=== PATIENT | male | born 1940 | race Caucasian/White ===

== ENCOUNTER → 2018-08-28 16:06 | Outpatient (CLI) | payer MEDICARE, BC, SELFPAY ==
[2018-08-28 17:17] LABS: Basophils # 0.1 K/mm3 (0-0.2); Basophils % 0.9 % (0.1-2.0); Eosinophils # 0.3 K/mm3 (0.0-0.4); Eosinophils % 4.3 % (0.1-12.0); Hemoglobin 14.7 g/dL (14.1-18.0); Lymphocytes # 2.8 K/mm3 (0.7-4.5); Lymphocytes % 42.4 % (10-50); Mean Corpuscular HGB Conc 31.4 g/dL (31.8-35.4); Mean Corpuscular Hemoglobin 29.6 pg (27.0-31.2); Mean Corpuscular Volume 94.1 fl (80-94); Mean Platelet Volume 7.4 fl (7.4-10.4); Monocytes # 0.3 K/mm3 (0.1-1.0); Monocytes % 4.7 % (1.7-9.3); Neutrophils # 3.2 K/mm3 (1.8-7.8); Neutrophils % 47.6 % (37.0-80.0); Platelet Count 294 K/mm3 (142-424); Red Blood Count 4.99 M/mm3 (4.60-6.20); Red Cell Distribution Width 12.6 % (11.5-17.5); White Blood Count 6.7 K/mm3 (4.8-10.8)
[2018-08-28 18:27] LABS: Alanine Aminotransferase 52 U/L (12-78); Alkaline Phosphatase 94 U/L (46-116); Anion Gap 12.9 mEq/L (5-15); Aspartate Amino Transferase 36 U/L (15-37); Bilirubin,Total 0.5 mg/dL (0.2-1.0); Blood Urea Nitrogen 23 mg/dL (7-18); Calcium 9.4 mg/dL (8.5-10.1); Carbon Dioxide 31 mmol/L (21.0-32.0); Chloride 103 mmol/L (98-107); Chol/HDL Ratio 5.2 (1-3.5); Cholesterol 173 mg/dL (140-200); Creatinine,Serum 1.06 mg/dL (0.70-1.30); Estimated Glomerular Filt Rate 68 ml/min (>60); Free Thyroxine Index 2.3 ug/dL (5.93-13.13); GFR (African American) 82 ML/MIN (>60); Globulin 4.1 gm/dl (1.3-3.2); Glucose 107 mg/dL (74-106); HDL Cholesterol 33 mg/dL (27-67); LDL Cholesterol 113 mg/dL (0-130); Potassium 4.9 mmoL/L (3.5-5.1); Sodium 142 mmol/L (136-145); Thyroid Stimulating Hormone 3.89 uIU/ml (0.358-3.740); Total Protein,Serum 8.1 gm/dL (6.4-8.2); Triglycerides 133 mg/dL (30-200); Triiodothryronine (T3) Uptake 29 % (31-39); VLDL Cholesterol 27 mg/dL (0-40)
== END ==
PROVIDERS: Visit Provider Internal Medicine Adolescent Medicine
DX: I10 Essential (primary) hypertension (principal); R97.20 Elevated prostate specific antigen [PSA]; R09.89 Other specified symptoms and signs involving the circulatory and respiratory systems
CPT/HCPCS: 36415; 80053; 80061; 84153; 84436; 84443; 84479; 85025

== ENCOUNTER → 2018-09-02 08:16 | Outpatient (CLI) | payer MEDICARE, BC, SELFPAY ==
--- NOTE | 2018-09-02 08:21 | US_ITS ---
US aorta HISTORY: ITS.REASON: ABDOMINAL BRUIT COMPARISON: FINDINGS: Transverse longitudinal images are obtained of the abdominal aorta showing no evidence of aneurysm. Proximal common iliacs are unremarkable. IMPRESSION: No evidence of abdominal aortic aneurysm
== END ==
PROVIDERS: PCP Internal Medicine Adolescent Medicine; Visit Provider Internal Medicine Adolescent Medicine
DX: R09.89 Other specified symptoms and signs involving the circulatory and respiratory systems (principal)
CPT/HCPCS: 76770

== ENCOUNTER → 2019-05-28 12:19 | Outpatient (CLI) | payer MEDICARE, BC, SELFPAY ==
--- NOTE | 2019-05-28 12:25 | CA_ITS ---
APPROVED REPORT Right Lower Extremity Venous Study for DVT. 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 Vein Imaging CFV (R): compressive, spontaneous, phasic, augmentation FEM (R): compressive, spontaneous, phasic, augmentation POP (R): compressive, spontaneous, phasic, augmentation PTV (R): Compressible GSV (R): compressive, spontaneous, phasic, augmentation SSV (R): Compressible Peroneals (R):Compressible GAS (R): Compressible Findings No evidence of DVT or superficial thrombophlebitis in the veins scanned of the right lower extremity. Conclusion No evidence of DVT or superficial thrombophlebitis in the veins scanned of the right lower extremity. Electronically signed by : Jose Miguel Alarcon MD 05/30/2019 17:26:50
== END ==
PROVIDERS: PCP Internal Medicine Adolescent Medicine; Visit Provider Internal Medicine Adolescent Medicine
DX: M79.604 Pain in right leg (principal); R60.0 Localized edema
CPT/HCPCS: 93971

== ENCOUNTER → 2019-12-30 08:50 | Outpatient (CLI) | payer MEDICARE, BC, SELFPAY ==
[2019-12-30 16:44] VITALS: PULSE 78; PULSE 82
== END ==
PROVIDERS: PCP Internal Medicine Adolescent Medicine; Visit Provider Internal Medicine Adolescent Medicine
DX: R06.00 Dyspnea, unspecified (principal)
CPT/HCPCS: 94060; 94618; 94640; 94726; 94729

== ENCOUNTER 2020-05-08 10:18 | Emergency (ER) | payer MEDICARE, BC, SELFPAY ==
[2020-05-08 10:24] VITALS: BP 123/69; PULSE 78; RESP 15; TEMP 36.8; O2SAT 98; BMI 25.8
[2020-05-08 10:40] VITALS: BP 123/69; PULSE 78; RESP 15; TEMP 36.8; O2SAT 98; BMI 25.7
--- NOTE | 2020-05-08 10:57 | HMH.EDUTC ---
[facility] [place] Disposition Clinical Impression: Viral syndrome Disposition: Home, Self-Care Condition on Discharge: Good Instructions: Diarrhea (Alternative Therapy), Diarrhea, Preventing the Spread of Coronavirus Discharge Instructions Additional Instructions: ? Avoid fruit juices, as these do not replace minerals and can actually increase diarrhea. ? Children and adults can use sports drinks to replenish electrolytes. Younger children and infants should use products formulated for children, like oral rehydration solutions. ? Eat food in small amounts and let your stomach recover. ? Get lots of rest. You may feel tired or weak. ? No greasy or fried foods for the next 24-48 hours BRAT diet Bananas Rice Apples and [place] ? Make sure to drink plenty of liquids ? Return if needed ? Straight to ER if any life threatening symptoms ?? You was given an outpatient order for diarrhea panel, please collect specimen and bring back to outpatient lab then call back to the [facility] or follow up with family doctor for results ? Follow up with family doctor in the next 48-72 hours if no improvement or any worsening of symptoms You was tested for today for COVID19 your test result should be back later this evening, you may call back later this evening to see if your test results are back and the result You was given a handout with instructions for Self Quarantine and Self isolation for while you wait on test results and what to do if they are positive Referrals: Toro Causey MD [Primary Care Provider] - As needed Time of Disposition: 12:15 Medical Decision Making - Александр Inquiry Pt receiving controlled substance: No Александр was queried for this patient: No Vital Signs: 05/08/20 10:24 05/08/20 10:40 05/08/20 12:19 Temperature 98.3 F 98.3 F 98.3 F Temperature Source Oral Oral Oral Pulse Rate 78 Pulse Rate [Right] 78 78 Respiratory Rate 15 15 15 Blood Pressure 123/69 Blood Pressure [Right Arm] 123/69 123/69 Blood Pressure Mean [Right Arm] 87 87 Blood Pressure Source Automatic Cuff Blood Pressure Source [Right Arm] Automatic Cuff Blood Pressure Position Sitting Blood Pressure Position [Right Arm] Sitting 02 Sat by Pulse Oximetry 98 98 Oxygen Delivery Method Room Air Room Air - Lab Data Lab Results 05/08/20 11:10: WBC 8.0, RBC 4.82, Hgb 15.3, Hct 44.0, MCV 91.3, MCH 31.8 H, MCHC 34.8, RDW 12.8, Plt Count 290, MPV 8.0, Neut % (Auto) 47.5, Lymph % (Auto) 30.7, Ceiba % (Auto) 12.9 H, Eos % (Auto) 7.6, Baso % (Auto) 1.3, Neut # (Auto) 3.8, Lymph # (Auto) 2.5, Ceiba # (Auto) 1.0, Eos # (Auto) 0.6 H, Baso # (Auto) 0.1 Result diagrams: 05/08/20 11:10 Orders (Tests/Meds): ED MEDICATIONS Discontinued Medications Generic Name Dose Route Start Last Admin Trade Name Freq PRN Reason Stop Dose Admin Sodium Chloride 1,000 mls @ 999 mls/hr 05/08/20 11:30 05/08/20 11:21 Sod Chlor 0.9% 1000ml Bag IV 05/08/20 12:30 999 mls/hr .Q1H1M SAUNDRA Administration Medical Decision Narrative: Patient reports feeling much better after IV fluids, no diarrhea since arrival [facility] [place] HPI - General Stated complaint: doesn't feel good,diarrhea Time Seen by Provider: 05/08/20 10:57 Mode of Arrival: Ambulatory Source of Information: Patient Limitations: No Limitations Description of Symptoms (Recalled from Triage Doc. by RN): C/O diarrhea and fatigued for the past 2-3 days, denies fever but has been chilling. Denies pain. HEENT Symptoms (Recalled from RN notes): No Resp Symptoms (Recalled from RN notes): No Skin Symptoms (Recalled from RN notes): No MS Symptoms (Recalled from RN notes): No Functional Status (Recalled from RN notes): wnl - History of Present Illness Provider Complaint: Patient states that he has been having diarrhea on and off for last couple of days, having chills and body aches States that he is worried and wanted to be tested for COVID States that last eppisode of diarrhea was yesterday Denies known fever - Related
[2020-05-08 11:32] LABS: Basophils # 0.1 K/mm3 (0-0.2); Basophils % 1.3 % (0.1-2.0); Eosinophils # 0.6 K/mm3 (0.0-0.4); Eosinophils % 7.6 % (0.1-12.0); Hemoglobin 15.3 g/dL (14.1-18.0); Lymphocytes # 2.5 K/mm3 (0.7-4.5); Lymphocytes % 30.7 % (10-50); Mean Corpuscular HGB Conc 34.8 g/dL (31.8-35.4); Mean Corpuscular Hemoglobin 31.8 pg (27.0-31.2); Mean Corpuscular Volume 91.3 fl (80-94); Monocytes % 12.9 % (1.7-9.3); Neutrophils # 3.8 K/mm3 (1.8-7.8); Neutrophils % 47.5 % (37.0-80.0); Platelet Count 290 K/mm3 (142-424); Red Blood Count 4.82 M/mm3 (4.60-6.20); Red Cell Distribution Width 12.8 % (11.5-17.5)
[2020-05-08 12:19] VITALS: BP 123/69; PULSE 78; RESP 15; TEMP 36.8; O2SAT 98
== END 2020-05-08 12:20 | disposition home or self-care (01) ==
PROVIDERS: Emergency Provider Nurse Practitioner; PCP Internal Medicine Adolescent Medicine
DX: B34.9 Viral infection, unspecified (principal); Z20.828 Contact with and (suspected) exposure to other viral communicable diseases
CPT/HCPCS: G0463; 85025; 96365; 99202; U0003

== ENCOUNTER → 2020-09-20 09:34 | Outpatient (CLI) | payer MEDICARE, BC, SELFPAY ==
[2020-09-20 10:04] LABS: Basophils # 0.1 K/mm3 (0-0.2); Basophils % 0.8 % (0.1-2.0); Eosinophils # 0.6 K/mm3 (0.0-0.4); Eosinophils % 5.9 % (0.1-12.0); Hemoglobin 15.8 g/dL (14.1-18.0); Lymphocytes # 2.7 K/mm3 (0.7-4.5); Lymphocytes % 25.6 % (10-50); Mean Corpuscular HGB Conc 32.9 g/dL (31.8-35.4); Mean Corpuscular Hemoglobin 30.8 pg (27.0-31.2); Mean Corpuscular Volume 93.7 fl (80-94); Mean Platelet Volume 8.3 fl (7.4-10.4); Monocytes # 0.6 K/mm3 (0.1-1.0); Monocytes % 5.4 % (1.7-9.3); Neutrophils # 6.6 K/mm3 (1.8-7.8); Neutrophils % 62.3 % (37.0-80.0); Platelet Count 306 K/mm3 (142-424); Red Blood Count 5.13 M/mm3 (4.60-6.20); White Blood Count 10.6 K/mm3 (4.8-10.8)
[2020-09-20 10:51] LABS: Alanine Aminotransferase 37 U/L (12-78); Albumin Level 5.1 g/dl (3.5-5.0); Albumin/Globulin Ratio 1.3 (1.1-1.8); Alkaline Phosphatase 91 U/L (38-126); Anion Gap 11.1 mEq/L (5-15); Aspartate Amino Transferase 38 U/L (17-59); Bilirubin,Total 0.7 mg/dl (0.2-1.3); Blood Urea Nitrogen 22 mg/dl (9-20); Calcium 10.3 mg/dl (8.4-10.2); Carbon Dioxide 32 mmol/L (22.0-30.0); Chloride 104 mmol/L (98-107); Chol/HDL Ratio 4.1 (1-3.5); Cholesterol 221 mg/dl (140-200); Estimated Glomerular Filt Rate 81 ml/min (>60); GFR (African American) 98 ML/MIN (>60); Globulin 3.9 g/dL (1.3-3.2); Glucose 114 mg/dl (74-100); HDL Cholesterol 54 mg/dl (40-60); Potassium 5.1 mmoL/L (3.5-5.1); Sodium 142 mmol/L (136-145); Triglycerides 130 mg/dl (30-150); VLDL Cholesterol 26 mg/dL (0-40)
[2020-09-20 11:02] LABS: Direct LDL Cholesterol 128.51 mg/dL (100-129)
[2020-09-20 11:22] LABS: Prostate Specific Ag, Diagnost 7.83 ng/ml (0.0-4.0)
== END ==
PROVIDERS: Visit Provider Internal Medicine Adolescent Medicine
DX: E78.5 Hyperlipidemia, unspecified (principal); I10 Essential (primary) hypertension; R97.20 Elevated prostate specific antigen [PSA]
CPT/HCPCS: 36415; 80053; 80061; 84153; 85025

== ENCOUNTER → 2020-10-26 12:57 | Outpatient (CLI) | payer MEDICARE, BC, SELFPAY ==
--- NOTE | 2020-10-26 13:05 | XR_ITS ---
PROCEDURE: XR CHEST 2V CLINICAL HISTORY: COUGH COMPARISON: No exams were available for comparison FINDINGS: The cardiomediastinal silhouette and pulmonary vascularity are within normal limits. There are increased markings in both lung bases suspicious for bilateral pneumonia. There also increased markings in the right perihilar region which have a somewhat cavity like appearance measuring approximately 4 cm.. There is a suspicious 2.4 cm opacity in the left apex. Neoplasm is considered. Suggest chest CT with contrast for further evaluation. There appears to be an old right clavicular fracture. There are degenerative changes of the shoulders. There is also an old right 6th and 7th rib fracture. IMPRESSION: 1. Bilateral pneumonia . 2. Increased density right perihilar region having a somewhat cavity like appearance. This could merely be related to summation of overlying structures. Suggest chest CT for further evaluation. 3. Suspicious 2.4 cm left apical nodule suspicious for neoplasm. Suggest chest CT with contrast for further evaluation Dictated by: Jose Miguel Alarcon MD 10/26/2020 18:45 Jose Miguel Alarcon MD in [place] 10/26/2020 18:45
== END ==
PROVIDERS: PCP Internal Medicine Adolescent Medicine; Visit Provider Internal Medicine Adolescent Medicine
DX: R05 Cough (principal)
CPT/HCPCS: 71046

== ENCOUNTER → 2020-11-01 09:14 | Outpatient (CLI) | payer MEDICARE, BC, SELFPAY ==
[2020-11-01 10:18] LABS: Blood Urea Nitrogen 23 mg/dl (9-20); Estimated Glomerular Filt Rate 81 ml/min (>60); GFR (African American) 98 ML/MIN (>60)
== END ==
PROVIDERS: Visit Provider Internal Medicine Adolescent Medicine
DX: R93.89 Abnormal findings on diagnostic imaging of other specified body structures (principal)
CPT/HCPCS: 36415; 82565; 84520

== ENCOUNTER → 2020-11-03 12:52 | Outpatient (CLI) | payer MEDICARE, BC, SELFPAY ==
--- NOTE | 2020-11-03 12:59 | CT_ITS ---
PROCEDURE: CT CHEST W CON CLINCAL INDICATION: ABN FINDING ON IMAGING COMPARISON: No exams were available for comparison TECHNIQUE: IV Contrast: 75ml Isovue 370 Axial images obtained with sagittal and coronal reformats. All CT scans at the facility use one or more dose reduction, viz: automated exposure control, ma/kV adjustment per patient size (including targeted exams where dose is matched to indication, i.e. head), or iterative reconstruction technique. FINDINGS: HEART AND MEDIASTINAL STRUCTURES: The heart size is normal. No pericardial effusions. Minor atherosclerotic vascular calcification of the thoracic aorta and the coronary arteries are noted. No significant mediastinal or hilar adenopathy. Few scattered lymph nodes noted in the mediastinum, not significant by size criteria. LUNGS AND PLEURAL SPACES: There is left upper lobe subpleural soft tissue density noted measuring 2.1 times 1.4 centimeters. Bilateral lower lobe subsegmental consolidation is noted. There is a right upper lobe subpleural airspace opacity noted measuring up to 2 centimeters. This may represent subsegmental atelectasis. No other lobar consolidation. No pleural effusions. Minor bibasal atelectasis is noted. There is a 5 millimeter nodule noted in the left upper lobe. The central tracheobronchial tree is patent. BONY STRUCTURES: Multilevel degenerative changes of the visualized thoracic spine. Bilateral shoulder joint osteoarthritis noted. UPPER ABDOMEN: Focal hypodense lesion is noted in the left lobe of the liver measuring 1.5 centimeters, most likely represents a cyst. ADDITIONAL FINDINGS: No other significant abnormalities. IMPRESSION: Bilateral lower lobe subsegmental consolidation. Left upper lobe subpleural soft tissue density measuring 2.1 centimeters. This may represent subsegmental atelectasis. Neoplastic process cannot be completely excluded. Close follow-up with CT thorax in 2-3 months is recommended to evaluate for resolution. Dictated by: Kim Nunez 11/03/2020 16:43 Kim Nunez in [place] 11/03/2020 16:43
== END ==
PROVIDERS: PCP Internal Medicine Adolescent Medicine; Visit Provider Internal Medicine Adolescent Medicine
DX: R93.89 Abnormal findings on diagnostic imaging of other specified body structures (principal)
CPT/HCPCS: 71260

== ENCOUNTER → 2020-12-10 15:37 | Outpatient (CLI) | payer MEDICARE, BC, SELFPAY ==
[2020-12-10 15:59] LABS: Basophils # 0.1 K/mm3 (0-0.2); Basophils % 0.4 % (0.1-2.0); Eosinophils # 0.2 K/mm3 (0.0-0.4); Eosinophils % 1.2 % (0.1-12.0); Hematocrit 37.1 % (42.0-52.0); Lymphocytes # 2.6 K/mm3 (0.7-4.5); Lymphocytes % 16.7 % (10-50); MANUAL DIFFERENTIAL MANUAL DIFFERENTIAL (MANUAL DIFF); Mean Corpuscular HGB Conc 32.2 g/dL (31.8-35.4); Mean Corpuscular Hemoglobin 28.4 pg (27.0-31.2); Mean Corpuscular Volume 88.1 fl (80-94); Mean Platelet Volume 7.1 fl (7.4-10.4); Monocytes # 0.9 K/mm3 (0.1-1.0); Monocytes % 5.9 % (1.7-9.3); Neutrophils # 11.7 K/mm3 (1.8-7.8); Neutrophils % 75.8 % (37.0-80.0); Platelet Count 611 K/mm3 (142-424); Red Blood Count 4.21 M/mm3 (4.60-6.20); Red Cell Distribution Width 13.4 % (11.5-17.5); White Blood Count 15.4 K/mm3 (4.8-10.8)
[2020-12-10 16:22] LABS: Chloride 101 mmol/L (98-107); Potassium 4.9 mmoL/L (3.5-5.1); Sodium 136 mmol/L (136-145)
[2020-12-10 16:25] LABS: Alanine Aminotransferase 59 U/L (12-78); Albumin Level 3.9 g/dl (3.5-5.0); Albumin/Globulin Ratio 1.1 (1.1-1.8); Alkaline Phosphatase 115 U/L (38-126); Anion Gap 14.9 mEq/L (5-15); Aspartate Amino Transferase 45 U/L (17-59); Bilirubin,Total 0.8 mg/dl (0.2-1.3); Blood Urea Nitrogen 26 mg/dl (9-20); Calcium 9.4 mg/dl (8.4-10.2); Carbon Dioxide 25 mmol/L (22.0-30.0); Estimated Glomerular Filt Rate 65 ml/min (>60); GFR (African American) 78 ML/MIN (>60); Globulin 3.7 g/dL (1.3-3.2); Glucose 131 mg/dl (74-100); Total Protein,Serum 7.6 g/dl (6.3-8.2)
[2020-12-10 16:26] LABS: Magnesium 2.2 mg/dl (1.6-2.3)
[2020-12-10 16:36] LABS: Lymphocytes % 18 % (10-50); Monocytes % 5 % (2-9); Neutrophils % 73 % (42-76); Platelet Estimate Moderate Increase; RBC Morphology Normal; Total Cells Counted 100
[2020-12-13 20:28] LABS: Calcium, Ionized 5.5 mg/dL (4.5-5.6)
== END ==
PROVIDERS: Visit Provider Internal Medicine Adolescent Medicine
DX: I10 Essential (primary) hypertension (principal); R63.4 Abnormal weight loss
CPT/HCPCS: 36415; 80053; 82330; 83735; 85007; 85025

== ENCOUNTER → 2020-12-23 08:39 | Outpatient (CLI) | payer MEDICARE, BC, SELFPAY ==
--- NOTE | 2020-12-23 08:43 | CT_ITS ---
PROCEDURE: CT CHEST WO/W CON CLINCAL INDICATION: ABN FINDING ON IMAGING COMPARISON: CT CT CHEST W CON from 11/03/2020 TECHNIQUE: IV Contrast: 75ml Isovue 370 Axial images obtained with sagittal and coronal reformats. All CT scans at the facility use one or more dose reduction, viz: automated exposure control, ma/kV adjustment per patient size (including targeted exams where dose is matched to indication, i.e. head), or iterative reconstruction technique. FINDINGS: HEART AND MEDIASTINAL STRUCTURES: There are few mildly prominent lymph nodes in the subcarinal region and hilar area not significantly changed. There is mild supravalvular dilatation of the ascending aorta at 4 cm. LUNGS AND PLEURAL SPACES: There is consolidation now present in the right apex posteriorly and in the left upper lobe posteriorly. The consolidation in the right lower lobe has shown some improvement with some patchy irregular areas of increased density. The left lower lobe consolidation also has shown some improvement. There is now consolidation in the superior segment of the left lower lobe which was not present on the previous exam. The areas of consolidation contain multiple cystic appearing areas. The previously noted subpleural density in the left apex is no longer apparent is felt to represent an area of infiltrate. There are some new subpleural densities in the right upper lobe anteriorly and laterally as well as the right middle lobe. These are felt to be due to areas of pneumonia. BONY STRUCTURES: No acute bony abnormalities apparent. UPPER ABDOMEN: There is a stable 14 mm hypodensity in the left hepatic lobe. ADDITIONAL FINDINGS: No other significant abnormalities. IMPRESSION: There is a mixed pattern of lung consolidation with improvement in the lower lobes inferiorly and worsening in the upper lobes and the superior segment of the left upper lobe. This could be seen with cryptogenic organizing pneumonia or aspiration pneumonia. Previously reported opacity in the left apex is no longer apparent but there are numerous other small subpleural areas of consolidation which are felt to be due to areas of pneumonia. Dictated by: Jose Miguel Alarcon MD 12/23/2020 12:30 Jose Miguel Alarcon MD in [place] 12/23/2020 12:30
--- NOTE | 2020-12-23 08:44 | CT_ITS ---
PROCEDURE: CT ABDOMEN PELVIS W CON CLINICAL INDICATION: WEIGHT LOSS COMPARISON: No exams were available for comparison TECHNIQUE: IV Contrast: 75ML Isovue 370 Oral Contrast None Axial images obtained with sagittal and coronal reformats. All CT scans at the facility use one or more dose reduction, viz: automated exposure control, ma/kV adjustment per patient size (including targeted exams where dose is matched to indication, i.e. head), or iterative reconstruction technique. FINDINGS: LOWER THORAX: Please see chest report performed on the same day ABDOMEN & PELVIS: 1.5 cm hypodensity is present in the hepatic dome on the left segment 2 and may be due to a hepatic cyst. The liver has an otherwise unremarkable appearance. The spleen, and pancreas has an unremarkable appearance. The adrenal glands are somewhat prominent but maintain and adrenal form shape. No calcified gallstones apparent. No obvious renal mass or renal calculi. No hydronephrosis. The No evidence of appendicitis or diverticulitis. Prostate is enlarged at 5.7 cm with coarse calcifications. There is mild thickening the pyloric region of the stomach persistent on both the immediate and delayed images. There is also mild thickening the lower portion of the rectum near the anus. No acute bony findings are evident. There are mild degenerative changes of the lumbar spine and hips. IMPRESSION: 1. Probable small hepatic cyst. 2. Thickening of the pyloric region of the stomach. This is nonspecific and may be due to nondistention, inflammatory changes, or even neoplasm. Upper endoscopy may provide further evaluation. 3. There is also mild thickening of the lower portion of the rectum. This is nonspecific and may be due to nondistention. Digital exam and or sigmoidoscopy may also provide further evaluation. 4. Enlarged prostate with coarse calcifications Dictated by: Jose Miguel Alarcon MD 12/23/2020 12:37 Jose Miguel Alarcon MD in [place] 12/23/2020 12:37
[2020-12-23 09:13] LABS: Blood Urea Nitrogen 19 mg/dl (9-20); Estimated Glomerular Filt Rate 81 ml/min (>60); GFR (African American) 98 ML/MIN (>60)
== END ==
PROVIDERS: PCP Internal Medicine Adolescent Medicine; Visit Provider Internal Medicine Adolescent Medicine
DX: R63.4 Abnormal weight loss (principal); R93.89 Abnormal findings on diagnostic imaging of other specified body structures
CPT/HCPCS: 36415; 71270; 74177; 82565; 84520; Q9967

== ENCOUNTER → 2021-02-21 09:42 | Outpatient (CLI) | payer MEDICARE, BC, SELFPAY ==
[2021-02-21 10:35] VITALS: PULSE 70
== END ==
PROVIDERS: PCP Internal Medicine Adolescent Medicine; Visit Provider Internal Medicine Adolescent Medicine
DX: R06.02 Shortness of breath (principal)
CPT/HCPCS: 94060; 94640; 94726; 94729

== ENCOUNTER → 2021-03-02 10:13 | Outpatient (CLI) | payer MEDICARE, BC, SELFPAY | PROVIDERS: Visit Provider Internal Medicine Gastroenterology | DX: Z01.812 Encounter for preprocedural laboratory examination (principal); Z11.52 Encounter for screening for COVID-19; Z13.810 Encounter for screening for upper gastrointestinal disorder; Z12.11 Encounter for screening for malignant neoplasm of colon | CPT/HCPCS: U0003 ==

== ENCOUNTER 2021-03-04 10:25 | Day surgery (SDC) | payer MEDICARE, BC, SELFPAY ==
[2021-02-24 13:42] VITALS: BMI 24.2
[2021-03-04] VITALS (8 sets, daily range): BP systolic 92–132; BP diastolic 48–84; PULSE 69–83; RESP 16–18; TEMP 36.4; O2SAT 93–99
--- NOTE | 2021-03-04 11:50 | P.PN_ITS ---
[facility] Anesthesia Checklist - Patient Identification Patient Identification: Arm Band - Structural Data Admitted From: Home Planned Operative Procedure/s: Colonoscopy Consent for Planned Operative Procedure(s) Verified: Yes - NPO Status Verified Time NPO: 00:00 - Airway Assessment C-Spine Mobility Assessed: Yes TMJ Mobility Assessed: Yes Dentition: Good Dentition - Neurological Assessment Level of Consciousness: Awake Hx Seizures: No Numbness or tingling in extremities: No - Anesthesia Plan Anesthesia Risk discussed: Yes Anesthesia Plan: Verified ASA Class: II Anesthesia Type: MAC [facility] History I have reviewed the patient's past medical history: Yes Medical History: Denies:: Cancer, Diabetes Mellitus Type 1, Diabetes Mellitus Type 2, Internal Pacemaker, MRSA, Seizures *Have you ever received a pneumonia vaccine?: Yes *Have you received a flu vaccine this season?: Yes Anesthesia experience/problems:: None Other Surgeries: Yes: Appendectomy, Colonoscopy, EGD, Hernia Repair, Other (Gallbladder, Cellulitis of right leg.). No: Pacemaker Amputation: No Fractures: No - *Social History Last grade of school completed: 7th or 8th Smoking Status: Never smoker Alcohol Intake: never Alcohol Intake Frequency:: holidays/special occasions only Substance Use Type: denies use *Occupational Status:: retired Housing: house Household Members: significant other *Travel in the last 8 weeks: None Family Hx:: No significant family history
--- NOTE | 2021-03-04 12:43 | P.PCN_ITS ---
[facility] Procedure Note Procedure Note:: Upper Endoscopy Procedure Report: Esophagogastroduodenoscopy with cold biopsies Endoscopost: Jaden Canchola II, MD Referring Physician: Marco Wiley MD Date of Procedure: March 04, 2021 Equipment: Olympus GIF 190 standard upper endoscope Sedation: MAC sedation Indications: Mr. Andino is a 80-year-old gentleman who is here for diagnostic upper endoscopy and colonoscopy. The patient has had abnormal weight loss of 30 pounds over the last 3 months and abnormal imaging of the abdomen. He does have a history of COPD and is a non-smoker. The patient's lab work recently revealed hemoglobin 12.0 and hematocrit 37.1. The patient CT scan of the chest did show bilateral subsegmental consolidation and left upper lobe subpleural soft tissue density measuring 2.1 cm. Neoplastic process could not be excluded from CAT scan in October 2020. Repeat CT scan of the abdomen and pelvis on December 23, 2020 showed thickening of the pyloric region of the stomach which was nonspecific. There was also some mild thickening of the lower portion of the rectum. There was improvement of the pulmonary lesion and the left apex lesion was no longer present. The patient reports no heartburn, reflux, abdominal pain or dysphagia. Procedure: Prior to the procedure, a history and physical exam was performed, and patient's medications and allergies were reviewed. The risks, benefits and alternatives of the sedation and procedure were discussed with the patient. All questions were answered and informed consent was obtained. The patient was brought to the procedure room. Patient identification and proposed procedure were verified by the physician and the nurse. The patient was placed in a left lateral decubitus position and the scope was passed under direct vision. Throughout the procedure, the patient's blood pressure, pulse, and oxygen saturations were monitored continuously. The upper GI endoscopy was accomplished without difficulty. The patient tolerated the procedure well. Findings: The scope was passed directly into the upper esophagus and advanced to the third portion of the duodenum. The post bulbar duodenum and duodenal bulb were normal with normal mucosa and conniventes. The scope was withdrawn through a normal duodenal bulb and pylorus into the stomach. There was bile reflux with mild linear reactive gastropathy. There was moderate chronic atrophic gastritis of the body and fundus of the stomach with loss of rugal folds and increased mucosal vascularity. Cold biopsies were taken from the fundus to rule out intestinal metaplasia/atrophic gastritis. Upon retroflexion there was no hiatal hernia. The scope was then withdrawn into the esophagus. There was a serrated Z-line. There was no evidence of reflux esophagitis or Soler's. There were strong tertiary contractions and almost corkscrew esophagus consistent with marked esophageal dysmotility. The remainder of the esophageal mucosa was normal. Impression: 1. 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 The patient is clinically asymptomatic. I will proceed with colonoscopy secondary to the abnormal CAT scan.
--- NOTE | 2021-03-04 13:03 | HMH.PROC ---
[facility] Procedure Note Procedure Note:: Colonoscopy Procedure Report: Colonoscopy with cold snare polypectomy Endoscopist: Jaden Canchola II, MD Referring physician: Marco Wiley MD Date of Procedure: March 04, 2021 Equipment: Olympus 190 variable stiffness pediatric colonoscope Sedation: MAC sedation Indication: Mr. Andino is a 80-year-old gentleman who is here for diagnostic colonoscopy. He has had abnormal weight loss of 30 pounds in 3 months. He also had a CT scan of the abdomen and pelvis that showed thickening in the pyloric region but also some mild thickening of the lower portion of the rectum near the anus. The patient does have COPD with bronchopneumonia recently. He is not a smoker. He reports no abdominal pain, change in his bowel habits, rectal bleeding or family history of colon cancer. He does state that his last colonoscopy was more than 15 years ago. Procedure: Prior to the procedure, a history and physical exam was performed, and patient's medications and allergies were reviewed. The risks, benefits and alternatives of the sedation and procedure were discussed with the patient. All questions were answered and informed consent was obtained. The patient was brought to the procedure room. Patient identification and proposed procedure were verified by the physician and the nurse. The patient was placed in a left lateral decubitus position and the scope was passed under direct vision. Throughout the procedure, the patient's blood pressure, pulse, and oxygen saturations were monitored continuously. The colonoscopy was accomplished without difficulty. The patient tolerated the procedure well. Findings: On digital rectal examination there was normal rectal tone. There were no external hemorrhoids. The prostate was 2+, moderately firm with some asymmetry and greater firmness along the right lateral margin of the prostate. The colonoscope was introduced through the anal canal to the rectum and advanced to the cecum. The ileocecal valve and appendiceal orifice were identified. The scope was advanced a short distance into the ileum which appeared grossly normal. The scope was then withdrawn into the colon. There were 2 colon polyps (ascending x1 (6 mm) and transverse x1 (4 mm)) which were both removed via cold snare polypectomy. The remaining cecum, ascending and transverse colon and mucosa were grossly normal. There were mildly scattered diverticuli throughout the descending and sigmoid colon (LEFT colon). There was some very mild melanosis coli in the right colon. The rectum itself was normal. Upon retroflexion within the rectum there were grade 2 internal hemorrhoids. The preparation was excellent throughout with Mobile Preparation Score of 9. The cecal time was 12 minutes. Impression: 1. Colonic polyps x2 2. Mild left-sided diverticulosis 3. Grade 1-2 internal hemorrhoids Plan: I will follow up the polyp histology. The patient will not require any further preventive/screening colonoscopy. I will discuss the findings with the patient and family. I do believe the abnormal weight loss is related to the pulmonary findings.
== END 2021-03-04 13:55 | disposition home or self-care (01) ==
LOC: OUTP 10:27
PROVIDERS: PCP Internal Medicine Adolescent Medicine; Visit Provider Internal Medicine Gastroenterology
PROC: 0DJ08ZZ Inspection of Upper Intestinal Tract, Via Natural or Artificial Opening Endoscopic (ICD-10-PCS; CPT 43235; principal; 2021-03-04 11:30)
DX: K29.40 Chronic atrophic gastritis without bleeding (principal); K22.4 Dyskinesia of esophagus; K63.5 Polyp of colon; K57.30 Diverticulosis of large intestine without perforation or abscess without bleeding; K64.0 First degree hemorrhoids
CPT/HCPCS: 43239; 45385; 88305

== ENCOUNTER → 2021-08-04 08:31 | Outpatient (CLI) | payer MEDICARE, BC, SELFPAY ==
[2021-08-06 16:09] LABS: H. pylori Breath Test Negative (Negative)
== END ==
PROVIDERS: PCP Internal Medicine Adolescent Medicine; Visit Provider Internal Medicine Gastroenterology
DX: A04.8 Other specified bacterial intestinal infections (principal)
CPT/HCPCS: 83013

== ENCOUNTER 2023-08-08 09:30 | Outpatient (CLI) | payer MEDICARE, BC, SELFPAY ==
--- NOTE | 2023-08-08 09:40 | ECG_ITS ---
APPROVED REPORT Exam: Resting ECG HR:56 bpm ECG Measurements Heart Rate 56 AXES CO 155 P 72 QRSd 91 QRS 82 QT 443 T 91 QTc 434 Conclusion SINUS BRADYCARDIA BORDERLINE ECG UNCONFIRMED REPORT Electronically signed by : Toro Causey MD 08/09/2023 20:34:34
[2023-08-08 10:20] LABS: Basophils # 0.1 K/mm3 (0-0.2); Basophils % 1.2 % (0.1-2.0); Eosinophils # 0.7 K/mm3 (0.0-0.4); Eosinophils % 6.6 % (0.1-12.0); Hematocrit 47.9 % (42.0-52.0); Hemoglobin 16.1 g/dL (14.1-18.0); Lymphocytes # 2.7 K/mm3 (0.7-4.5); Lymphocytes % 27.1 % (10-50); Mean Corpuscular HGB Conc 33.6 g/dL (31.8-35.4); Mean Corpuscular Hemoglobin 31.8 pg (27.0-31.2); Mean Corpuscular Volume 94.5 fl (80-94); Mean Platelet Volume 8.3 fl (7.4-10.4); Monocytes # 0.6 K/mm3 (0.1-1.0); Monocytes % 5.8 % (1.7-9.3); Neutrophils # 5.9 K/mm3 (1.8-7.8); Neutrophils % 59.4 % (37.0-80.0); Platelet Count 256 K/mm3 (142-424); Red Blood Count 5.07 M/mm3 (4.60-6.20)
[2023-08-08 16:23] LABS: Anion Gap 13.4 mEq/L (5-15); Blood Urea Nitrogen 19 mg/dl (9-20); Carbon Dioxide 23 mmol/L (22.0-30.0); Chloride 106 mmol/L (98-107); Estimated Glomerular Filt Rate 81 ml/min (>60); GFR (African American) 98 ML/MIN (>60); Glucose 91 mg/dl (74-100); Potassium 4.4 mmoL/L (3.5-5.1); Sodium 138 mmol/L (136-145)
== END 2023-08-08 23:59 ==
LOC: LAB 09:31
PROVIDERS: PCP Internal Medicine Adolescent Medicine; Visit Provider Surgery
DX: L72.3 Sebaceous cyst (principal); B34.9 Viral infection, unspecified
CPT/HCPCS: 36415; 80048; 85025; 93005

== ENCOUNTER 2023-08-16 08:20 | Day surgery (SDC) | payer MEDICARE, BC, SELFPAY ==
[2023-08-15 11:20] VITALS: BMI 25.0
[2023-08-16] VITALS (9 sets, daily range): BP systolic 138–172; BP diastolic 68–85; PULSE 71–79; RESP 16–20; TEMP 36.1–36.4; O2SAT 95–100
--- NOTE | 2023-08-16 08:43 | ECG_ITS ---
APPROVED REPORT Exam: Resting ECG HR:66 bpm ECG Measurements Heart Rate 66 AXES IA 151 P 54 QRSd 84 QRS 67 QT 413 T 81 QTc 426 Conclusion SINUS RHYTHM NORMAL ECG UNCONFIRMED REPORT Electronically signed by : Toro Causey MD 08/16/2023 20:07:32
[2023-08-16] MEDS: LACTATED RINGERS 1000ML 1,000 ML 25 ML IV (08:51)
--- NOTE | 2023-08-16 09:20 | EXP.ANES.CKL ---
[facility] Disclaimer: The information contained in this section may have been updated after the patient was seen, as this information can be updated by other users. Medical History Osteoarthritis Surgical History History of hernia repair Family History Other Family history of cancer Social History Smoking Status: Never smoker second hand exposure: No alcohol intake: never counseling provided: provider counseling substance use type: denies use current occupational status: retired Travel in the last 8 weeks: None household members: significant other housing: house current occupational exposures/hazards: No caffeine: Yes [facility] Anesthesia Checklist Patient Identification Patient Identification: Arm Band, Family and Verbal (Name & ) Structural Data Admitted From: Home Planned Operative Procedure/s: Excision of Neck Cyst & LEFT arm nodule Consent for Planned Operative Procedure(s) Verified: Yes Verified Documents: Surgical Consent and History and Physical NPO Status Verified Time NPO: 19:00 Chart Verification Results Verified: CBC, BMP and ECG Additional verifications Patient : No Anesthesia Reactions: No Hx Blood Transfusions: No Cardiovascular Assessment Heart Sounds: S1 & S2 Pulse Rhythm: Irregular Peripheral Edema: No Airway Assessment Mallampati Score:: Class II C-Spine Mobility Assessed: Yes (FROM) TMJ Mobility Assessed: Yes Dentition: Edentulous Neurological Assessment Level of Consciousness: Awake, Alert, Appropriate and Follows Commands Hx Seizures: No Numbness or tingling in extremities: No Anesthesia Plan Anesthesia Risk discussed: Yes Anesthesia Plan: Verified ASA Class: II Anesthesia Type: General Preoperative Comments Pre-Operative Comments: Consented for both deep sedation and GA w/LMA
[2023-08-16] MEDS: CEFAZOLIN SODIUM 1 GM in 0.9 % SODIUM CHLORIDE 50 ML IV (09:43)
[2023-08-16] MEDS: LIDOCAINE 1% 20ML MDV 20 ML (10:02)
--- NOTE | 2023-08-16 10:12 | EXP.OP.NOTE ---
Date of procedure: 08/16/23 Pre-op Diagnosis:: 2 cm right posterior neck sebaceous cyst 5 mm left forearm skin nodule Post-op Diagnosis:: Same Procedure performed:: Excision of 2 cm right posterior neck sebaceous cyst Excision of 5 mm left forearm skin nodule Surgeon:: Cuco Giles MD PRODUCT DEVELOPMENT ECOLOGIST:: Gonzalez Ko Anesthesia: LMA Estimated blood loss (mL): 15 Operative findings:: Both lesions excised in toto Operative note:: After informed consent was obtained the patient was taken to the operating room and placed in the supine position. General anesthesia with laryngeal mask airway was achieved. He was transferred to a left lateral decubitus position. His left forearm and posterior neck were prepped and draped in a sterile fashion. After infiltration local anesthetic an elliptical incision was made around the 5 mm left forearm lesion. The lesion was excised in toto and passed off for pathologic evaluation. Electrocautery was utilized to achieve hemostasis. Skin was reapproximated with interrupted 4-0 nylon in a mattress fashion to facilitate hemostasis. In the same manner an elliptical incision was made sharply around the 2 cm posterior neck cyst. The deeper subcutaneous tissue was dissected with electrocautery. The lesion was excised in toto and passed off for pathologic evaluation. Electrocautery was utilized to achieve hemostasis and skin was reapproximated with interrupted 4-0 nylon in a mattress fashion. Dressings were applied and the patient was transferred to recovery in stable condition after removal of his laryngeal mask airway. Condition: stable Disposition: PACU Specimens:: 2 cm right posterior neck cyst 5 mm left forearm skin nodule Complications:: No immediate
--- NOTE | 2023-08-16 10:19 | P.PNANES_ITS ---
[facility] Anesthesia Record Part I Anesthesia Record I Intake, IV Amount: 100 Hydration: Adequate Estimated blood loss (mL): 5 Urine output (mL): 0 Blood Pressure: 162/74 SaO2: 95 Pulse Rate: 79 Airway Patency: Patent Respiratory Rate: 20 Temperature: 97 F Patient is:: Drowsy and Oral/Nasal airway Stable to PACU at:: 10:19
--- NOTE | 2023-08-18 11:51 | EXP.ANES.II ---
[facility] Anesthesia Record Part II Anesthesia Record Part II Discharge Time: 10:49 Destination: Surgical Day Care (OP Surgery) PACU nurse assessment reviewed?: Yes Patient Condition:: Good Anesthesia Complications:: None Swallowing reflex intact?: Yes Airway Patency: Patent Cyanosis?: No Blood Pressure: 167/78 SaO2: 97 Respiratory Rate: 17 Pulse Rate: 75 Temperature: 97.5 F Mental Status: Alert & Oriented Pain level:: 0 Nausea and/or vomitting:: None Intake, IV Amount: 0 Hydration: Adequate
[2023-08-18 11:52] VITALS: BP 167/78; PULSE 75; RESP 17; TEMP 36.4; O2SAT 97
== END 2023-08-16 11:20 | disposition home or self-care (01) ==
PROVIDERS: PCP Internal Medicine Adolescent Medicine; Visit Provider Surgery
PROC: (CPT 11400; principal; 2023-08-16 10:00)
DX: M79.81 Nontraumatic hematoma of soft tissue (principal); L72.0 Epidermal cyst
CPT/HCPCS: 11400; 11422; 88304; 88305; 93005; 96374; J2405

== ENCOUNTER 2023-08-23 20:31 | Emergency (ER) | payer MEDICARE, BC, SELFPAY ==
[2023-08-23 20:32] VITALS: BP 187/106; PULSE 74; RESP 20; TEMP 36.3; O2SAT 99; BMI 25.8
--- NOTE | 2023-08-23 20:48 | ED_ITS ---
Discharge Plan Disposition Patient Disposition: Home, Self-Care Prescriptions Prescriptions: No Action lisinopril 40 mg tablet 40 mg PO DAILY Referrals Follow up/Referrals: Donald Miguel MD [Staff Physician] - See instructions Toro Causey MD [Primary Care Provider] - See instructions Activity Restrictions/Add. Instructions Additional Instructions/Restrictions: At this time is felt you are safe to be discharged home. If new or worsening symptoms please not hesitate to return the emergency department. Please call tomorrow to schedule an appointment with Dr. Miguel as soon as you are able. If you are unable to see Dr. Miguel within the next 7 to 10 days please call and schedule an appointment with Dr. Causey's office and say that you were in the emergency department and they suggested you follow-up as soon as you are able for your elevated blood sugar and inability to pee. Clinical Impressions Clinical Impression: Acute urinary retention, Hyperglycemia Discharge ED Provider: Sam Waters General Adult HPI General Chief complaint: Abdominal Pain Stated complaint: pain with kidneys Time Seen by Provider: 08/23/23 20:34 History of Present Illness HPI narrative: Patient is a 83-year-old male with past medical history of hypertension who presents to the emergency department for inability to void. Onset was acute, over the last 24 hours, last night or this morning patient has not been able to void since and has developed abdominal distention in his lower abdomen and pain with attempting to void for which he has been unable. He has no other acute complaints at this time. Denies midline back pain, saddle anesthesia, lower extremity weakness. Related Data Home Medications Medication Instructions Recorded Confirmed lisinopril 40 mg tablet 40 mg PO DAILY 08/08/23 08/16/23 Allergies Allergy/AdvReac Type Severity Reaction Status Date / Time No Known Allergies Allergy Verified 08/16/23 08:37 [facility] Disclaimer: The information contained in this section may have been updated after the patient was seen, as this information can be updated by other users. Medical History (Updated 08/23/23 @ 21:35 by Sam Waters MD) Osteoarthritis Surgical History History of hernia repair Family History Other Family history of cancer Social History Smoking Status: Never smoker second hand exposure: No alcohol intake: never counseling provided: provider counseling substance use type: denies use current occupational status: retired Travel in the last 8 weeks: None household members: significant other housing: house current occupational exposures/hazards: No caffeine: Yes ROS Obtained: Yes Systems reviewed as appropriate & no additional complaints except as documented Physical Exam General General appearance: alert and in no apparent distress Head Head exam: atraumatic and normocephalic Eye Eye exam: Present PERRL and EOMI ENT ENT exam: Present mucous membranes moist Neck Neck exam: Present normal inspection Chest Chest inspection: Present normal inspection and symmetric chest wall rise Respiratory Respiratory exam: Absent respiratory distress Cardiovascular Cardiovascular exam: Present regular rate and normal rhythm Abdominal Exam Abdominal exam: Present distention (Suprapubic); Absent tenderness Extremities Exam Extremities exam: Present normal inspection and other (5 out of 5 strength bilateral lower extremity) Neurological Exam Neurological exam: Present alert Psychiatric Psychiatric exam: Present normal affect Skin Skin exam: Present warm and dry Medical Decision Making Александр Inquiry Pt receiving controlled substance: No Vital Signs: 08/23/23 20:32 Temperature 97.4 F L Temperature Source Oral Pulse Rate [Right Radial] 74 Respiratory Rate 20 Blood Pressure [Right Arm] 187/106 H Blood Pressure Mean [Right Arm] 133 02 Sat by Pulse Oximetry 99 Oxygen Delivery Method Room Air Lab Data Lab Results 08/23/23 20:40: WBC 15.8 H, RBC 5.11, Hgb 15.8, Hct 47.6, MCV 93.1, MCH 31.0, MCHC 33.3, RDW 13.1, Plt Count 336, MPV 8.4, Neut % (Auto) 79.6, Lymph % (Auto) 14.5, Charles % (Auto) 4.0, Eos % (Auto) 1.3, Baso % (Auto) 0.6, Neut # (Auto) 12.6 H, Lymph # (Auto) 2.3, Charles # (Auto) 0.6, Eos # (Auto) 0.2, Baso # (Auto) 0.1, Total Counted 100, Neutrophils % (Manual) 78 H, Lymphocytes % (Manual) 16, Monocytes % (Manual) 4, Eosinophils % (Manual) 2, Platelet Estimate Normal, RBC Morphology Normal, Sodium 141, Potassium 4.2, Chloride 101, Carbon Dioxide 28, Anion Gap 16.2 H, BUN 19, Creatinine 0.90, Estimated Creat Clear 62, Estimated GFR 81, Est GFR ( Amer) 98, Glucose 201 H, Calcium 9.8, Total Bilirubin 0.9, AST 34, ALT 29, Alkaline Phosphatase 127 H, Total Protein 8.9 H, Albumin 5.0, Globulin 3.9 H, Albumin/Globulin Ratio 1.3 08/23/23 20:45: Urine Color Yellow, Urine Appearance Clear, Urine pH 6.0, Ur Specific Morral 1.015, Urine Protein Negative, Urine Glucose (UA) Negative, Urine Ketones Negative, Urine Blood 1+, Urine Nitrate Negative, Urine Bilirubin Negative, Urine Urobilinogen 0.2, Ur Leukocyte Esterase Negative, Urine RBC 5- 10, Urine WBC Occasional, Urine Bacteria 1+ 08/23/23 20:40 08/23/23 20:40 Orders (Tests/Meds): ORDERS Category Date Time Status CBC w/Auto Diff [Complete Blood Count Auto Diff] Stat Lab 08/23/23 20:40 Completed CMP [Comprehensive Metabolic Panel] Stat Lab 08/23/23 20:40 Completed UA [Urinalysis and Microscopic] Stat Lab 08/23/23 20:45 Completed Medical Decision Narrative: In summary patient is a 83-year-old male with past medical history described above who presents emergency department for evaluation of urinary retention. Patient is hemodynamically stable nontoxic-appearing upon arrival, afebrile. Bladder scan ultrasound shows greater than 800 cc (images were not saved to apartment archive therefore no note is warranted). Patient was decompressed with a Pate with immediate resolution of symptoms. Patient has a benign abdominal exam. Screening for kidney injury will be conducted with hematologic labs. Urinalysis will be obtained. Workup reviewed by me, hematologic labs are nonactionable, mild hyperglycemia that is not concerning for DKA. Patient has nonspecific leukocytosis, does not have any history consistent with infection that would require further investigation at this time, urinalysis interpreted by me and not consistent with infection. Upon repeat evaluation patient continued to be well-appearing, no other acute complaints. Given this patient is appropriate for discharge at this time we will follow-up with urology on an outpatient basis. Critical Care Critical Care Time Critical Care Time: No
[2023-08-23 20:52] LABS: Microscopic, Urine URINE MICROSCOPIC (MICROSCOPIC)
[2023-08-23 20:54] LABS: Appearance,Urine CLEAR (Clear); Bilirubin,Urine Negative (Negative); Blood, Urine 1+ (Negative); Color,Urine YELLOW (Yellow); Glucose,Urine (UA) Negative (Negative); Ketones,Urine Negative (Negative); Leukocyte Esterase,Urine Negative (Negative); Nitrate,Urine Negative (Negative); Protein,Urine Negative (Negative); Specific Gravity, Urine 1.015 (1.005-1.030); Urobilinogen,Urine 0.2 EU/dl (0.2)
[2023-08-23 20:54] LABS: Basophils # 0.1 K/mm3 (0-0.2); Basophils % 0.6 % (0.1-2.0); Eosinophils # 0.2 K/mm3 (0.0-0.4); Eosinophils % 1.3 % (0.1-12.0); Hematocrit 47.6 % (42.0-52.0); Hemoglobin 15.8 g/dL (14.1-18.0); Lymphocytes # 2.3 K/mm3 (0.7-4.5); Lymphocytes % 14.5 % (10-50); Mean Corpuscular HGB Conc 33.3 g/dL (31.8-35.4); Mean Corpuscular Volume 93.1 fl (80-94); Mean Platelet Volume 8.4 fl (7.4-10.4); Monocytes # 0.6 K/mm3 (0.1-1.0); Neutrophils # 12.6 K/mm3 (1.8-7.8); Neutrophils % 79.6 % (37.0-80.0); Platelet Count 336 K/mm3 (142-424); Red Blood Count 5.11 M/mm3 (4.60-6.20); Red Cell Distribution Width 13.1 % (11.5-17.5); White Blood Count 15.8 K/mm3 (4.8-10.8)
[2023-08-23 20:58] LABS: MANUAL DIFFERENTIAL MANUAL DIFFERENTIAL (MANUAL DIFF)
[2023-08-23 20:59] LABS: Alanine Aminotransferase 29 U/L (12-78); Albumin/Globulin Ratio 1.3 (1.1-1.8); Alkaline Phosphatase 127 U/L (38-126); Anion Gap 16.2 mEq/L (5-15); Aspartate Amino Transferase 34 U/L (17-59); Bilirubin,Total 0.9 mg/dl (0.2-1.3); Blood Urea Nitrogen 19 mg/dl (9-20); Calcium 9.8 mg/dl (8.4-10.2); Carbon Dioxide 28 mmol/L (22.0-30.0); Chloride 101 mmol/L (98-107); Creatinine Clearance Estimated 62 mL/min (50-200); Estimated Glomerular Filt Rate 81 ml/min (>60); GFR (African American) 98 ML/MIN (>60); Globulin 3.9 g/dL (1.3-3.2); Glucose 201 mg/dl (74-100); Potassium 4.2 mmoL/L (3.5-5.1); Sodium 141 mmol/L (136-145); Total Protein,Serum 8.9 g/dl (6.3-8.2)
[2023-08-23 21:14] LABS: Eosinophils % 2 % (0-3); Lymphocytes % 16 % (10-50); Monocytes % 4 % (2-9); Neutrophils % 78 % (42-76); Total Cells Counted 100
[2023-08-23 21:15] LABS: Platelet Estimate Normal; RBC Morphology Normal
[2023-08-23 21:16] LABS: Bacteria,Urine 1+ /lpf; WBC,Urine Occasional #/hpf (0-3)
[2023-08-23 21:54] VITALS: BP 150/74; PULSE 78; RESP 20; TEMP 36.7; O2SAT 98
== END 2023-08-23 21:55 | disposition home or self-care (01) ==
PROVIDERS: Emergency Provider Emergency Medicine; PCP Internal Medicine Adolescent Medicine
DX: R33.9 Retention of urine, unspecified (principal); R73.9 Hyperglycemia, unspecified; I10 Essential (primary) hypertension
CPT/HCPCS: 51702; 80053; 81001; 85007; 85025; 99284

== ENCOUNTER 2023-09-03 16:10 | Outpatient (CLI) | payer MEDICARE, BC, SELFPAY ==
[2023-09-03 16:33] LABS: Microscopic, Urine URINE MICROSCOPIC (MICROSCOPIC)
[2023-09-03 16:50] LABS: Appearance,Urine CLEAR (Clear); Bilirubin,Urine Negative (Negative); Blood, Urine 3+ (Negative); Color,Urine YELLOW (Yellow); Glucose,Urine (UA) Negative (Negative); Ketones,Urine Negative (Negative); Leukocyte Esterase,Urine Negative (Negative); Nitrate,Urine Negative (Negative); PH,Urine 5.5 (5.0-8.5); Protein,Urine Negative (Negative); Specific Gravity, Urine >= 1.030 (1.005-1.030); Urobilinogen,Urine 0.2 EU/dl (0.2)
[2023-09-03 18:06] LABS: WBC,Urine Occasional #/hpf (0-3)
== END 2023-09-03 23:59 ==
LOC: LAB 16:12
PROVIDERS: PCP Internal Medicine Adolescent Medicine; Visit Provider Urology
DX: R33.8 Other retention of urine (principal)
CPT/HCPCS: 81001; 87086

== ENCOUNTER 2023-10-12 13:21 | Outpatient (CLI) | payer MEDICARE, BC, SELFPAY ==
[2023-10-12 13:27] LABS: Microscopic, Urine URINE MICROSCOPIC (MICROSCOPIC)
[2023-10-12 15:18] LABS: Appearance,Urine CLEAR (Clear); Bilirubin,Urine Negative (Negative); Blood Urea Nitrogen 18 mg/dl (9-20); Blood, Urine 1+ (Negative); Color,Urine YELLOW (Yellow); Estimated Glomerular Filt Rate 81 ml/min (>60); GFR (African American) 98 ML/MIN (>60); Glucose,Urine (UA) Negative (Negative); Ketones,Urine Negative (Negative); Leukocyte Esterase,Urine TRACE (Negative); Nitrate,Urine Negative (Negative); Protein,Urine Negative (Negative); Specific Gravity, Urine >= 1.030 (1.005-1.030); Urobilinogen,Urine 0.2 EU/dl (0.2)
[2023-10-12 15:28] LABS: RBC,Urine Occasional #/hpf (0-3); Squamous Epithelial Cell,Urine Occasional #/hpf (0-5); WBC,Urine Occasional #/hpf (0-3)
== END 2023-10-12 23:59 ==
PROVIDERS: PCP Internal Medicine Adolescent Medicine; Visit Provider Urology
DX: R31.9 Hematuria, unspecified (principal)
CPT/HCPCS: 36415; 81001; 82565; 84520

== ENCOUNTER 2023-10-24 07:38 | Outpatient (CLI) | payer MEDICARE, BC, SELFPAY ==
--- NOTE | 2023-10-24 07:39 | CT_ITS ---
FINAL REPORT TECHNIQUE: Axial CT images of the abdomen and pelvis were obtained before and after the administration of IV contrast. Oral contrast was administered.This study was performed with techniques to keep radiation doses as low as reasonably achievable (ALARA). Individualized dose reduction techniques using automated exposure control or adjustment of mA and/or kV according to the patient''s size were employed. CLINICAL HISTORY: UTI COMPARISON: 12/23/2020 FINDINGS: Abdomen: There is mild scarring in the lung bases. The heart is normal in size. There is a 15 mm cyst in the lateral segment of the left hepatic lobe. The spleen is unremarkable. There is mild adrenal gland enlargement, may represent hyperplasia or adenomas. Findings are stable since prior. The pancreas has an unremarkable appearance. The kidneys enhance normally. The aorta is normal in caliber. There is no free fluid or adenopathy. No mass or abnormal fluid collection is seen. Precontrast images demonstrate no evidence of nephrolithiasis. Pelvis: The appendix is normal. The prostate is diffusely enlarged. There is mild bladder wall thickening, likely inflammatory. Left inguinal hernia containing fat is identified. There is no evidence of mass or adenopathy. There is no evidence of bowel obstruction. IMPRESSION: Mild bladder wall thickening, likely inflammatory. Reviewed, Interpreted and Dictated by Oscar Coe III, MD Transcribed by Patricia Tomas Authenticated and [facility]
[2023-10-24] MEDS: SODIUM CHLORIDE 0.9% 10ML SYR (RAD ONLY) 10 ML IV (08:19)
[2023-10-24] MEDS: IOPAMIDOL-370 (76%);100ML BOTTLE 75 ML IV (08:19)
== END 2023-10-24 23:59 ==
LOC: RAD 07:39
PROVIDERS: PCP Internal Medicine Adolescent Medicine; Visit Provider Urology
DX: R31.9 Hematuria, unspecified (principal)
CPT/HCPCS: 74178; Q9967

== ENCOUNTER 2024-10-15 11:04 | Outpatient (CLI) | payer MEDICARE, BC, SELFPAY ==
--- NOTE | 2024-10-15 11:09 | XR_ITS ---
FINAL REPORT CLINICAL HISTORY: MIDLINE LOW BACK PAIN W/OUT SCIATICA COMPARISON: None FINDINGS: 5 views of the lumbar spine were obtained. There is no evidence of fracture or dislocation. There is 15 degrees of dextroscoliosis present. There is moderate disc space narrowing of the L1-2, L3-4, and L4-5 discs. Moderate facet sclerosis is noted in the lower lumbar spine. No paraspinous soft tissue abnormalities identified. IMPRESSION: Degenerative changes, with no acute bony abnormality. Reviewed, Interpreted and Dictated by Jayro Ralph MD Transcribed by Joanna Richardson Authenticated and . [facility]
== END 2024-10-15 23:59 | disposition home or self-care (01) ==
LOC: RAD 11:06
PROVIDERS: PCP Internal Medicine Adolescent Medicine; Visit Provider Internal Medicine Adolescent Medicine
DX: M54.50 Low back pain, unspecified (principal); R97.20 Elevated prostate specific antigen [PSA]
CPT/HCPCS: 72110

== ENCOUNTER 2024-12-23 22:41 | Emergency (ER) | payer MEDICARE, BC, SELFPAY ==
[2024-12-23 22:46] VITALS: BP 185/88; PULSE 90; O2SAT 97
[2024-12-23 22:49] VITALS: BP 185/88; PULSE 81; RESP 20; TEMP 36.4; O2SAT 97; BMI 24.3
--- OUTSIDE RECORDS SUMMARY | 2024-12-23 22:50 | XMS_ITS | Continuity of Care Document ---
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 I emphasized that an elevated PSA does not necessarily mean the presence of prostate cancer, but that it should be further investigated with either imaging or a repeat PSA. I explain the significance of a rising PSA, and the fact that there is not necessarily a certain value that would be considered normal in the face of an rising PSA. We also discussed possible etiologies such as prostate cancer, infection, inflammation, trauma, and benign prostatic hyperplasia. We discussed the need for prostate biopsy for a more definitive means of ruling out prostate cancer. Patient voices understanding. Per the patient's request, I will proceed with MRI prostate protocol. BPH with [place], Erectile Dysfunction: Continue tamsulosin 0.4 mg daily, take at night instead of in the morning. Start tadalafil 5mg every morning on an empty stomach. Will follow up after imaging to discuss results, sooner if needed. He is to call the office in the interim with any questions or concerns regarding new or worsening symptoms, medication intolerance, etc. [email or web address] Not available 10/30/2024 14:09:16 Plan of Treatment Reminders Order Date Submit Date Provider Last Modified By Organization Details Last Modified Time Details Appointments [facility] 30 2024 01:45P M KALEE SALEH MD Not available Not available Not available Lab urinalysi s panel, auto 2024 025 [email or web address] [id number] [facility], [address] [place] [address] Dr [address], [place], [address], 10/30/2024 14:01:03 Referral None recorded. Procedures None recorded. Surgeries None recorded. Imaging MRI, pelvis, w/wo contrast 2024 025 [facility], [address] [facility] [address], [place], [address], 11/14/2024 14:24:07 Medication Orders tamsulosi n 0.[address] mg capsule [address] [facility], [address], [address], 10/30/2024 14:02:40 tadalafil 5 mg tablet [address] [facility], [address], [address], 10/30/2024 14:02:09 Patient TargetsNo targets recorded. Patient Instructions Encounter Date Encounter Id Patient Instructions Last Modified By Organization Details Last Modified Time 10/30/2024 [id number] learning about healthy weight [email or web address] Not available 10/30/2024 14:01:03 Reason for Referral None Reported. Results Created Date Observation Date Name Description Value Unit Range Abnormal Flag Note LastModifiedBy Organization Detail LastModifiedTime 10/31/1910/30/2024 urina lysis panel , auto Unknown Analyte Clean Catch Not Available [facility] With [address], [place], [address], 10/30/2024 13:25:08 10/31/1910/30/2024 urina lysis panel , auto Unknown Analyte Yellow Not Available [facility] With [address], [place], [address], 10/30/2024 13:25:08 10/31/19 25 10/30/2024 urina lysis panel , auto Unknown Analyte Clear Not Available [facility] With [address], [place], [address], 10/30/2024 13:25:08 10/31/19 25 10/30/2024 urina lysis panel , auto Unknown Analyte 1.015 Not Available [facility] With [address] [place], [address], 10/30/2024 13:25:08 10/31/19 25 10/30/2024 urina lysis panel , auto Unknown Analyte 1.003 - 1.030 Not Available [facility] With [address] [place], [address], 10/30/2024 13:25:08 10/31/19 25 10/30/2024 urina lysis panel , auto Unknown Analyte 6.5 Not Available [facility] With [address] [place], [address], 10/30/2024 13:25:08 10/31/19 25 10/30/2024 urina lysis panel , auto Unknown Analyte 5.0 - 8.0 Not Available [facility] With [address] [place], [address], 10/30/2024 13:25:08 10/31/19 25 10/30/2024 urina lysis panel , auto Unknown Analyte Negati ve Not Available [facility] With [address] [place], [address], 10/30/2024 13:25:08 10/31/19 25 10/30/2024 urina lysis panel , auto Unknown Analyte Negati ve Not Available [facility] With [address] [place], [address], 10/30/2024 13:25:08 10/31/19 25 10/30/2024 urina lysis panel , auto Unknown Analyte Negati ve Not Available [facility] With [address] [place], [address], 10/30/2024 13:25:08 10/31/19 25 10/30/2024 urina lysis panel , auto Unknown Analyte Negati ve Not Available [facility] With [address] [place], [address], 10/30/2024 13:25:08 10/31/19 25 10/30/2024 urina lysis panel , auto Unknown Analyte Negati ve Not Available [facility] With [address] [place], [address], 10/30/2024 13:25:08 10/31/19 25 10/30/2024 urina lysis panel , auto Unknown Analyte Negati ve Not Available [facility] With [address] [place], [address], 10/30/2024 13:25:08 10/31/19 25 10/30/2024 urina lysis panel , auto Unknown Analyte Normal Not Available [facility] With [address] [place], [address], 10/30/2024 13:25:08 10/31/19 25 10/30/2024 urina lysis panel , auto Unknown Analyte Normal Not Available [facility] With [address] [place], [address], 10/30/2024 13:25:08 10/31/19 25 10/30/2024 urina lysis panel , auto Unknown Analyte Negati ve Not Available [facility] [address] [place], [address], 10/30/2024 13:25:08 10/31/19 25 10/30/2024 urina lysis panel , auto Unknown Analyte Negati ve Not Available [facility] With [address] [place], [address], 10/30/2024 13:25:08 10/31/19 25 10/30/2024 urina lysis panel , auto Unknown Analyte 1 mg/dL Not Available [facility] With [address] [place], [address], 10/30/2024 13:25:08 10/31/19 25 10/30/2024 urina lysis panel , auto Unknown Analyte Normal Not Available [facility] With [address] [place], [address], 10/30/2024 13:25:08 10/31/19 25 10/30/2024 urina lysis panel , auto Unknown Analyte Negati ve Not Available [facility] With [address] [place], [address], 10/30/2024 13:25:08 10/31/19 25 10/30/2024 urina lysis panel , auto Unknown Analyte Negati ve Not Available [facility] With [address] [place], [address], 10/30/2024 13:25:08 10/31/19 25 10/30/2024 urina lysis panel , auto Unknown Analyte 50 Jayson/uL Not Available [facility] With [address] [place], [address], 10/30/2024 13:25:08 10/31/19 25 10/30/2024 urina lysis panel , auto Unknown Analyte Negati ve Not Available [facility] [address], [place], [address], 10/30/2024 13:25:08 11/15/19 25 11/14/2024 MRI, pelvi s, w/wo contr ast [facility] [address] [place] [address] [id number] [phone] Patien t Name: TONNY THOMAS Patien t : 1939 Patien t Orderi ng Provid er: DINA Jewell EXAM DATE: 2024 EXAM: MR PELVIS ATTN PROSTA TE W/WO CONTRA ST CLINIC AL INFORM ATION: Elevat ed PSA TECHNI QUE: A baseli ne serum creati nine with eGFR was obtain ed prior to inject ion of contra st medium due to the patien ts risk factor s for MONISHA. Calcul ated eGFR at time of exam was GFR=77 Tripla kristyn T2, axial DWI, ADC map, axial T1 pre- and dynami c postco ntrast -enhan carlos images as well as axial T1 fat-sa t imagin g was perfor med after inject ion of 7.[address] (1 x 7.5 mL bottle of [facility] 87803- 325-01 ) IV. The patien t did not requir e sedati on for this exam. COMPAR ANTONIO: None. FINDIN GS: PROSTA TE SIZE MEASUR EMENTS : Prosta te dimens ions = 5.6 x 4.6 x 6 cm (T x AP x CC). QUALIT Y: Good PERIPH ERAL ZONE: Overal l, periph eral zone is normal in size and backgr ound signal charac terist ics, No suspic ious focal lesion is seen. TRANSI TION ZONE: Multip le, well deline ated encaps ulated nodule s are seen consis tent with BPH. A suspic ious focal lesion is seen as decibe d below. PI-RAD S catego ry = 5/5 locate d in right transi tional zone involv ing the entire right aspect of the gland. This is creati ng capsul ar bulgin g. This measur es at least 3 cm. Seen best in image 7 throug h 24 of series 8001, 7006, 7007, and image 134 of series 8000. It is positi ve on T2 WI, ADC, DWI and DCE images . CAPSUL E AND NEIGHB ORING STRUCT URES: The right prosta te capsul e is clearl y bulgin g outwar d and involv ement is suspec osito. Neuro- vascul ar bundle s are normal bilate rally. Semina l vesicl es are normal . PELVIC LYMPH NODES: No pelvic lympha denopa thy. PELVIC BONES: No suspic ious osseou s lesion is seen. IMPRES EUSEBIA: 1. Change s of BPH 2. BI-RAD S 5/5 lesion (s) involv ing the right side of the gland likely invadi ng and bulgin g the capsul e 3. Semina l vesicl es appear intact . 4. No defini te extrap rostat ic findin g Interp reted By: Donald Weaver MD Electr onical ly Signed By: Donald Weaver MD on 025 2:19 PM [email or web address] [facility] [address] [place], [address], 11/15/2024 10:06:59 Result Notes None recorded. Problems Name Problem SNOMED Code Status Onset Date Resolution Date Notes Provider Name and Address Organization Details Recorded Time Lower urinary tract symptoms due to benign prostatic hypertrophy 2660750289622 1 Active 2024 DINA BRAY PA-C [address] [place], [address], [facility] 14:07:39 Prostate specific antigen above reference range 347663071 Active 2024 DINA BRAY PA-C [address] [place], [address] , [facility] 14:07:41 Problem Notes None recorded. Medical Equipment None Reported. Allergies No known drug allergies Medications Name Sig Start Date Stop Date Status Note LastModified by Organization Details LastModified Time amlodipine 5 mg tablet Take 1 tablet every day by oral route. active Not Available Not Available No t Available tamsulosin 0.4 mg capsule Take 1 capsule every day at bedtime for urinary symptoms. 025 active Not Available Not Available Not Avai lable Cipro 500 mg tablet Take 1 tablet twice a day by oral route as directed for 3 days. 025 active Not Available Not Available Not Avai lable lisinopril 40 mg tablet Take 1 tablet every day by oral route. active Not Available Not Available No t Available tadalafil 5 mg tablet Take 1 capsule on an empty stomach every morning for urinary symptoms. 025 active Not Available Not Available Not Avai lable Vitals Date Recorded Body height Body mass index (BMI) Body weight Provider Name and Address Organization Details Last Updated DateTime 10/30/2024 172.72 cm 24.3 kg/m2 65397.78 g [facility] 10/30/2024 13:21:40 Social History Question Answer Notes LastModified by Organizat ion Details LastModified Time Tobacco Smoking Status Never Smoker Chari Wolft [facility] 10/30/2024 13:22:38 What Was The Date Of Your Most Recent Tobacco Screening? 11/27/2024 Information not available 11/27/2024 Sex: Unknown Functional Status Question Answer Note LastModified by Organization D etails LastModified Time What is your level of alcohol consumption? None Information not available 10/30/2024 Mental Status None recorded. Family History Relationship Description Onset Age of this Age Resolved Age Notes LastModified by Organization Details LastModified Time Brother Family history of malignant neoplasm [email or web address] Not available 2024 13:22:19 Medical History Condition Response False Teeth Y Hypertension Y Past Encounters Encounter ID Performer Location Encounter Start Date Encounter Closed Date Diagnosis/Indication Diagnosis SNOMED-CT Code Diagnosis ICD10 Code Diagnosis Note [id number] [facility] [address] [place] [address] ,[address] [place] [address] 10/30/2024 12:35:15 10/31/2024 10:16:19 Lower urinary tract symptoms due to benign prostatic hypertrophy 9912114331 9101 N40.1 Prostate s pecific antigen above reference range 510409335 R97.20 Retention of urine 61595 4002 R33.9 Health Concerns Section Related Observation LastModified by Organization Detai ls LastModified Time None Recorded Concern Status LastModified by Organization Details LastModified Time None Recorded Payers Encounter Date Sequence Insurance Name Policy Number Policy Perez Covered Member ID Perez Member ID Guarantor Name 10/30/2024 1 [place] Tonny Andino [id number] Tonny Yasir Sina Notes Date Note Type Note Provider Name and Address Organization Details Recorded Time 10/30/2024 text/html The patient is a n 84-year-old pleasant male with 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 He was referred by his primary care physician, Dr. Causey.He endorses associated urinary symptoms including weak/slow urine stream and nocturia x2 nightly, erectile dysfunction. He denies new or worsening pain in the low back or pelvis, dysuria, hematuria/hematospe rmia. The patient denies recent history of pelvic trauma or recent infections. He denies fever, chills, malaise, and unintentional weight loss.He denies familial history of prostate cancer. His past medical history is otherwise remarkable for hypertension, GERD, and arthritis. DINA BRAY PA-C [address] [place], [address], [facility] 10/30/2024 14:09:30
--- OUTSIDE RECORDS SUMMARY | 2024-12-23 22:50 | XMS_ITS | Continuity of Care Document ---
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 I reviewed recent imaging and we discussed results in depth today. My recommendations include fusion biopsy of the prostate performed by Dr. Saleh. I also recommend that the patient continue with the current tamsulosin/tadalaf il daily regimen for his obstructive symptoms, if he continues to tolerate these well. He reports poor compliance with medications, I reminded him that it is important to take these medications as prescribed in order for them to be effective. Will plan to follow-up after fusion biopsy, sooner if needed. [email or web address] Not available 12/07/2024 21:00:57 Plan of Treatment Reminders Order Date Submit Date Provider Last Modified By Organization Details Last Modified Time Details Appointments [facility] 30 2024 01:45P lAba SALEH MD Not available Not available Not available Lab urinalysi s panel, auto 2024 025 [id number] [facility], [address] [place] [address] Dr Jimenez, [place], [address], 11/27/2024 15:35:25 culture, urine 2024 025 [facility], [address] [place] [address], [address], 11/29/2024 11:12:27 Referral None recorded. Procedures None recorded. Surgeries prostate needle biopsy (SURG) 2024 025 [email or web address] [facility], [address] [facility], [facility] [address], [place], [address], 12/08/2024 15:40:38 Imaging None recorded. Medication Orders None recorded. Patient TargetsNo targets recorded. Patient InstructionsNo instructions recorded. Reason for Referral None Reported. Results Created Date Observation Date Name Description Value Unit Range Abnormal Flag Note LastModifiedBy Organization Detail LastModifiedTime 11/28/1911/27/2024 urina lysis panel , auto Unknown Analyte Clean Catch Not Available [facility] With [address], [place], [address], 11/26/2024 16:37:57 11/28/19 25 11/27/2024 urina lysis panel , auto Unknown Analyte Yellow Not Available [facility] With [address] Jimenez, [place], [address], 11/26/2024 16:37:57 11/28/19 25 11/27/2024 urina lysis panel , auto Unknown Analyte Clear Not Available [facility] With [address] [place], [address], 11/26/2024 16:37:57 11/28/19 25 11/27/2024 urina lysis panel , auto Unknown Analyte 1.020 Not Available [facility] With [address] Jimenez, [place], [address], 11/26/2024 16:37:57 11/28/19 25 11/27/2024 urina lysis panel , auto Unknown Analyte 1.003 - 1.030 Not Available [facility] With [address] Jimenez, [place], [address], 11/26/2024 16:37:57 11/28/19 25 11/27/2024 urina lysis panel , auto Unknown Analyte 5.0 Not Available [facility] With [address] Jimenez, [place], [address], 11/26/2024 16:37:57 11/28/19 25 11/27/2024 urina lysis panel , auto Unknown Analyte 5.0 - 8.0 Not Available [facility] With [address] Jimenez, [place], [address], 11/26/2024 16:37:57 11/28/19 25 11/27/2024 urina lysis panel , auto Unknown Analyte 75 Phillip/uL Not Available [facility] With [address] Jimenez, [place], [address], 11/26/2024 16:37:57 11/28/19 25 11/27/2024 urina lysis panel , auto Unknown Analyte Negati ve Not Available [facility] With [address] Jimenez, [place], [address], 11/26/2024 16:37:57 11/28/19 25 11/27/2024 urina lysis panel , auto Unknown Analyte Negati ve Not Available [facility] With [address] [place], [address], 11/26/2024 16:37:57 11/28/19 25 11/27/2024 urina lysis panel , auto Unknown Analyte Negati ve Not Available [facility] With [address] [place], [address], 11/26/2024 16:37:57 11/28/19 25 11/27/2024 urina lysis panel , auto Unknown Analyte Negati ve Not Available [facility] With [address] [place], [address], 11/26/2024 16:37:57 11/28/19 25 11/27/2024 urina lysis panel , auto Unknown Analyte Negati ve Not Available [facility] With [address] [place], [address], 11/26/2024 16:37:57 11/28/19 25 11/27/2024 urina lysis panel , auto Unknown Analyte Normal Not Available [facility] With [address] [place], [address], 11/26/2024 16:37:57 11/28/19 25 11/27/2024 urina lysis panel , auto Unknown Analyte Normal Not Available [facility] With [address] [place], [address], 11/26/2024 16:37:57 11/28/19 25 11/27/2024 urina lysis panel , auto Unknown Analyte Negati ve Not Available [facility] With [address] [place], [address], 11/26/2024 16:37:57 11/28/19 25 11/27/2024 urina lysis panel , auto Unknown Analyte Negati ve Not Available [facility] With [address] [place], [address], 11/26/2024 16:37:57 11/28/19 25 11/27/2024 urina lysis panel , auto Unknown Analyte 1 mg/dL Not Available [facility] With [address] [place], [address], 11/26/2024 16:37:57 11/28/19 25 11/27/2024 urina lysis panel , auto Unknown Analyte Normal Not Available [facility] With [address] Jimenez, [place], [address], 11/26/2024 16:37:57 11/28/19 25 11/27/2024 urina lysis panel , auto Unknown Analyte Negati ve Not Available [facility] With [address] Jimenez, [place], [address], 11/26/2024 16:37:57 11/28/19 25 11/27/2024 urina lysis panel , auto Unknown Analyte Negati ve Not Available [facility] With [address] Jimenez, [place], [address], 11/26/2024 16:37:57 11/28/19 25 11/27/2024 urina lysis panel , auto Unknown Analyte Trace Not Available [facility] With [address] Jimenez, [place], [address], 11/26/2024 16:37:57 11/28/19 25 11/27/2024 urina lysis panel , auto Unknown Analyte Negati ve Not Available [facility] With [address] Jimenez, [place], [address], 11/26/2024 16:37:57 11/15/19 25 11/14/2024 MRI, pelvi s, w/wo contr ast [address] [address] 9[address]09 1-1956 Patien t Name: TONNY Yasir RICHY MARTHA Patialla t : 1939 Patien t Orderi ng [...] st (1 x 7.5 mL bottle of [facility] 06202- 325-01 ) IV. The patien t did [...] Donald Weaver MD on 025 2:19 PM [email or web address] [facility]iology [facility] [address] [place], [address], 11/15/2024 10:06:59 Result Notes None recorded. Problems Name Problem SNOMED Code Status Onset Date Resolution Date Notes Provider Name and Address Organization Details Recorded Time Lower urinary tract symptoms due to benign prostatic hypertrophy 4415747523549 1 Active 2024 DINA BRAY PA-C [address] [place], [address], [facility] 5 14:07:39 Prostate specific antigen above reference range 660489829 Active 2024 DINA BRAY PA-C [address] [place], [address], [facility] 5 14:07:41 Problem Notes None recorded. Medical Equipment [...] and Address Organization Details Last Updated DateTime 11/27/2024 172.72 cm 25.1 kg/m2 53750.74 g Murelene Carson [facility] 11/27/2024 15:10:48 Social History Question Answer Notes LastModified by Organizat ion Details LastModified Time Tobacco Smoking Status Never Smoker Chari Byrd [facility] 10/30/2024 13:22:38 What Was The Date Of [...] SNOMED-CT Code Diagnosis ICD10 Code Diagnosis Note [id number] JESSE SHER [facility] [address] [address] 10/30/2024 12:35:15 10/31/2024 10:16:19 Lower urinary tract symptoms due to benign prostatic hypertrophy 5942759384 9101 N40.1 Prostate s pecific antigen above reference range 997666582 R97.20 Retention of urine 95676 4002 R33.9 [id number] JESSE SHER [facility] [address] [address] 11/27/2024 14:36:28 11/28/2024 10:24:46 Prostate specific antigen above reference range 604907081 R97.20 Lower urin david tract symptoms due to benign prostatic hypertrophy 6844983214 9101 N40.1 Retention of urine 05768 4002 R33.9 Acute urin david tract infection 585972495 N39.0 Health Concerns Section Related Observation LastModified by Organization Detai ls LastModified Time None Recorded Concern Status LastModified by Organization Details LastModified Time None Recorded Payers Encounter Date Sequence Insurance Name Policy Number Policy Perez Covered Member ID Perez Member ID Guarantor Name 11/27/2024 1 [place]ARE[place] Tonny Andino [id number] Tonny Andino 11/27/2024 2 [place] (PPO) [id number] Tonny Andino [id number] Tonny Andino Notes Date Note Type Note Provider Name and Address Organization Details Recorded Time 11/27/2024 text/html Mr. Andino i s a pleasant 84-year-old male here today for follow-up to discuss findings from recent MRI of the prostate. 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 He was referred for management of the LUTS as well as for elevated PSA noted on routine screening by his primary care physician, Dr. Bah. Other chronic medical history remarkable for hypertension, GERD, and arthritis. At our initial appointment he complained of associated urinary symptoms including weak/slow urine stream, nocturia x 2 nightly, and erectile dysfunction. He was already taking tamsulosin 0.4 mg daily for incomplete emptying, I started him on low-dose daily tadalafil taken on empty stomach every morning. He reports that he has taken this intermittently, when he can remember, and he has not noticed much symptom improvement. MRI of the pelvis performed on 11/14/2024 which demonstrated changes in BPH and a PI-RADS category 5 out of 5 lesion located in the right transitional zone of the prostate with capsular bulging. No extraprostatic findings noted. Of note, he reports new fever/night sweats on review of systems today in the office. Urinalysis today demonstrates mild microscopic pyuria and trace hematuria. DINA BRAY PA-C [address] [place], [address], [facility] 12/07/2024 21:01:47
--- OUTSIDE RECORDS SUMMARY | 2024-12-23 22:50 | XMS_ITS | Data Portability ---
Author Organization NICOLE THANG Ren [employer]AMLET [employer]OS[employer] Address [address] [place] [address] Care Team Providers Care Tube M[employer] Name Role Phone JUANA BAHHEN Referring Provider Assessment Encounter Date Assessment Date [...] new or worsening symptoms, medication intolerance, etc. [email or web address] Not available 10/30/2024 14:09:16 11/27/2024 11/27/2024 Assessment: Elevated PSA with PI-RADS [...] follow-up after fusion biopsy, sooner if needed. [email or web address] Not available 12/07/2024 21:00:57 Plan of Treatment Reminders Order Date Submit Date Provider Last Modified By Organization Details Last Modified Time Details Appointments [facility] 30 2024 01:45P Alba SALEH MD Not available Not available Not available Lab urinalysi s panel, auto 2024 [email or web address] [place] [address] Extended Services With [address], [place], [address], 11/27/2024 15:35:25 culture, urine 2024 025 [facility], [address] [place] [address], [address], 11/29/2024 11:12:27 urinalysi s panel, auto 2024 [email or web address] [place] [address] Extended Services With [address], [place], [address], 10/30/2024 14:01:03 Referral None recorded. Procedures None recorded. Surgeries prostate needle biopsy (SURG) 2024 025 [email or web address] [facility] Place Of Service Professional Charges, [address] [facility], [facility] [address], [place], [address], 12/08/2024 15:40:38 Imaging MRI, pelvis, w/wo contrast 2024 025 [facility] Radiology [facility], [address] [place], [address], 11/14/2024 14:24:07 Medication Orders tamsulosi n 0.4 mg capsule 2024 025 [facility], [address] [place], [address], 10/30/2024 14:02:40 tadalafil 5 mg tablet 2024 025 [facility] [address], [address] [place], [address], 10/30/2024 14:02:09 Patient TargetsNo targets recorded. Patient Instructions Encounter Date Encounter Id Patient Instructions Last Modified By Organization Details Last Modified Time 10/30/2024 [id number] learning about healthy weight Not available 10/30/2024 14:01:03 Reason for Referral None Reported. Results Created Date Observation Date Name Description Value Unit Range Abnormal Flag Note LastModifiedBy Organization Detail LastModifiedTime 10/31/1910/30/2024 urina lysis panel , auto Unknown Analyte Clean Catch Not Available [facility] Extended Services With [address], [place], [address], 10/30/2024 13:25:08 10/31/19 25 10/30/2024 urina lysis panel , auto Unknown Analyte Yellow Not Available [facility] Extended Services With [address] [place], [address], 10/30/2024 13:25:08 10/31/19 25 10/30/2024 urina lysis panel , auto Unknown Analyte Clear Not Available [facility] Extended Services With [address] [place], [address], 10/30/2024 13:25:08 10/31/19 25 10/30/2024 urina lysis panel , auto Unknown Analyte 1.[address] [facility] Extended Services With [address] [place], [address], 10/30/2024 13:25:08 10/31/19 25 10/30/2024 urina lysis panel , auto Unknown Analyte 1.003 - 1.030 Not Available [facility] Extended Services With [address], [place], [address], 10/30/2024 13:25:08 10/31/19 25 10/30/2024 urina lysis panel , auto Unknown Analyte 6.[address] [facility] Extended Services With [address], [place], [address], 10/30/2024 13:25:08 10/31/19 25 10/30/2024 urina lysis panel , auto Unknown Analyte 5.0 - 8.0 Not Available [facility] Extended Services With [address], [place], [address], 10/30/2024 13:25:08 10/31/19 25 10/30/2024 urina lysis panel , auto Unknown Analyte Negati ve Not Available [facility] Extended Services With [address], [place], [address], 10/30/2024 13:25:08 10/31/19 25 10/30/2024 urina lysis panel , auto Unknown Analyte Negati ve Not Available [facility] Extended Services With [address], [place], [address], 10/30/2024 13:25:08 10/31/19 25 10/30/2024 urina lysis panel , auto Unknown Analyte Negati ve Not Available [facility] Extended Services With [address], [place], [address], 10/30/2024 13:25:08 10/31/19 25 10/30/2024 urina lysis panel , auto Unknown Analyte Negati ve Not Available [facility] Extended Services With [address], [place], [address], 10/30/2024 13:25:08 10/31/19 25 10/30/2024 urina lysis panel , auto Unknown Analyte Negati ve Not Available [facility] Extended Services With [address], [place], [address], 10/30/2024 13:25:08 10/31/19 25 10/30/2024 urina lysis panel , auto Unknown Analyte Negati ve Not Available [facility] Extended Services With [address] [place], [address], 10/30/2024 13:25:08 10/31/19 25 10/30/2024 urina lysis panel , auto Unknown Analyte Normal Not Available [facility] Extended Services With [address] [place], [address], 10/30/2024 13:25:08 10/31/19 25 10/30/2024 urina lysis panel , auto Unknown Analyte Normal Not Available [facility] Extended Services With [address] [place], [address], 10/30/2024 13:25:08 10/31/19 25 10/30/2024 urina lysis panel , auto Unknown Analyte Negati ve Not Available [facility] Extended Services With [address] [place], [address], 10/30/2024 13:25:08 10/31/19 25 10/30/2024 urina lysis panel , auto Unknown Analyte Negati ve Not Available [facility] Extended Services With [address] [place], [address], 10/30/2024 13:25:08 10/31/19 25 10/30/2024 urina lysis panel , auto Unknown Analyte 1 mg/dL Not Available [facility] Extended Services With [address], [place], [address], 10/30/2024 13:25:08 10/31/19 25 10/30/2024 urina lysis panel , auto Unknown Analyte Normal Not Available [facility] Extended Services With [address] [place], [address], 10/30/2024 13:25:08 10/31/19 25 10/30/2024 urina lysis panel , auto Unknown Analyte Negati ve Not Available [facility] Extended Services With [address] [place], [address], 10/30/2024 13:25:08 10/31/19 25 10/30/2024 urina lysis panel , auto Unknown Analyte Negati ve Not Available [facility] Extended Services With [address] [place], [address], 10/30/2024 13:25:08 10/31/19 25 10/30/2024 urina lysis panel , auto Unknown Analyte 50 Jayson/uL Not Available [facility] Extended Services With [address] [place], [address], 10/30/2024 13:25:08 10/31/19 25 10/30/2024 urina lysis panel , auto Unknown Analyte Negati ve Not Available [facility] Extended Services With [address] [place], [address], 10/30/2024 13:25:08 11/28/19 25 12/01/2024 URINE CULTU RE urine culture No growth day 3. Not Available [facility] [address] [place] [address], [place], [address], 12/01/2024 08:49:09 11/28/19 25 11/27/2024 urina lysis panel , auto Unknown Analyte Clean Catch Not Available [facility] Extended Services With [address], [place], [address], 11/26/2024 16:37:57 11/28/19 25 11/27/2024 urina lysis panel , auto Unknown Analyte Yellow Not Available [facility] Extended Services With [address], [place], [address], 11/26/2024 16:37:57 11/28/19 25 11/27/2024 urina lysis panel , auto Unknown Analyte Clear Not Available [facility] Extended Services With [address], [place], [address], 11/26/2024 16:37:57 11/28/19 25 11/27/2024 urina lysis panel , auto Unknown Analyte 1.[address] [facility] Extended Services With [address], [place], [address], 11/26/2024 16:37:57 11/28/19 25 11/27/2024 urina lysis panel , auto Unknown Analyte 1.003 - 1.030 Not Available [facility] Extended Services With [address], [place], [address], 11/26/2024 16:37:57 11/28/19 25 11/27/2024 urina lysis panel , auto Unknown Analyte 5.[address] [facility] Extended Services With [address], [place], [address], 11/26/2024 16:37:57 11/28/19 25 11/27/2024 urina lysis panel , auto Unknown Analyte 5.0 - 8.0 Not Available [facility] Extended Services With [address] [place], [address], 11/26/2024 16:37:57 11/28/19 25 11/27/2024 urina lysis panel , auto Unknown Analyte 75 Phillip/uL Not Available [facility] Extended Services With [address] [place], [address], 11/26/2024 16:37:57 11/28/19 25 11/27/2024 urina lysis panel , auto Unknown Analyte Negati ve Not Available [facility] Extended Services With [address] [place], [address], 11/26/2024 16:37:57 11/28/19 25 11/27/2024 urina lysis panel , auto Unknown Analyte Negati ve Not Available [facility] Extended Services With [address] [place], [address], 11/26/2024 16:37:57 11/28/19 25 11/27/2024 urina lysis panel , auto Unknown Analyte Negati ve Not Available [facility] Extended Services With [address] [place], [address], 11/26/2024 16:37:57 11/28/19 25 11/27/2024 urina lysis panel , auto Unknown Analyte Negati ve Not Available [facility] Extended Services With [address] [place], [address], 11/26/2024 16:37:57 11/28/19 25 11/27/2024 urina lysis panel , auto Unknown Analyte Negati ve Not Available [facility] Extended Services With [address] [place], [address], 11/26/2024 16:37:57 11/28/19 25 11/27/2024 urina lysis panel , auto Unknown Analyte Normal Not Available [facility] Extended Services With [address], [place], [address], 11/26/2024 16:37:57 11/28/19 25 11/27/2024 urina lysis panel , auto Unknown Analyte Normal Not Available [facility] Extended Services With [address] [place], [address], 11/26/2024 16:37:57 11/28/19 25 11/27/2024 urina lysis panel , auto Unknown Analyte Negati ve Not Available [facility] Extended Services With [address] [place], [address], 11/26/2024 16:37:57 11/28/19 25 11/27/2024 urina lysis panel , auto Unknown Analyte Negati ve Not Available [facility] Extended Services With [address], [place], [address], 11/26/2024 16:37:57 11/28/19 25 11/27/2024 urina lysis panel , auto Unknown Analyte 1 mg/dL Not Available [facility] Extended Services With [address] [place], [address], 11/26/2024 16:37:57 11/28/19 25 11/27/2024 urina lysis panel , auto Unknown Analyte Normal Not Available [facility] Extended Services With [address] [place], [address], 11/26/2024 16:37:57 11/28/19 25 11/27/2024 urina lysis panel , auto Unknown Analyte Negati ve Not Available [facility] Extended Services With [address], [place], [address], 11/26/2024 16:37:57 11/28/19 25 11/27/2024 urina lysis panel , auto Unknown Analyte Negati ve Not Available [facility] Extended Services With [address], [place], [address], 11/26/2024 16:37:57 11/28/19 25 11/27/2024 urina lysis panel , auto Unknown Analyte Trace Not Available [facility] Extended Services With [address], [place], [address], 11/26/2024 16:37:57 11/28/19 25 11/27/2024 urina lysis panel , auto Unknown Analyte Negati ve Not Available [facility] Extended Services With [address], [place], [address], 11/26/2024 16:37:57 11/15/19 25 11/14/2024 MRI, pelvi s, w/wo contr ast [address] [address] [phone] Patien t Name: TONNY THOMAS Patialla t : 1939 Patien t Orderi [facility] er: DINA Jewell EXAM DATE: 2024 EXAM: [...] st (1 x 7.5 mL bottle of [facility] [address]8485- 325-01 ) IV. The patien t did [...] Donald Weaver MD on 025 2:19 PM [email or web address] [facility] Radiology [facility] [address] [facility], [place], [address], 11/15/2024 10:06:59 Result Notes None recorded. Problems Name Problem SNOMED Code Status Onset Date Resolution Date Notes Provider Name and Address Organization Details Recorded Time Lower urinary tract symptoms due to benign prostatic hypertrophy 3213731747327 1 Active 2024 DINA BRAY PA-C [address] [place], [address], [facility] 14:07:39 Prostate specific antigen above reference range 110093787 Active 2024 DINA BRAY PA-C [address] [place], [address], [facility] 14:07:41 Problem Notes None recorded. Procedures Surgical History None recorded. Imaging Results Imaging Date Name Status LastModified by Organiz ation Details LastModified Time 11/14/2024 MRI, pelvis, w/wo contrast completed [address] Radiology [facility] [address] [place], [address], 11/15/2024 10:06:59 Procedure Notes None recorded. Medical Equipment None Reported. [...] Updated DateTime 10/30/2024 172.72 cm 24.3 kg/m2 15350.78 g Analymecca Carson [facility] 10/30/2024 13:21:40 Date Recorded Body height Body mass index (BMI) Body weight Provider Name and Address Organization Details Last Updated DateTime 11/27/2024 172.72 cm 25.1 kg/m2 57442.74 g Chari Byrd [facility] 11/27/2024 15:10:48 Social History Question Answer Notes LastModified by Organizat ion Details LastModified Time Tobacco Smoking Status Never Smoker Chari Byrd [facility] 10/30/2024 13:22:38 What Was The Date Of Your Most Recent Tobacco Screening? 11/27/2024 [email or web address] Information not available 11/27/2024 Sex: Unknown Functional Status Question Answer Note LastModified by Organization D etails LastModified Time What is your level of alcohol consumption? None [email or web address] Information not available 10/30/2024 Mental Status None [...] SNOMED-CT Code Diagnosis ICD10 Code Diagnosis Note [id number] JESSE SHER [facility] [address] [address] 10/30/2024 12:35:15 10/31/2024 10:16:19 Lower urinary tract symptoms due to benign prostatic hypertrophy 6137376870 9101 N40.1 Prostate s pecific antigen above reference range 408407820 R97.20 Retention of urine 16971 4002 R33.9 [id number] JESSE [facility] [address] [address] 11/27/2024 14:36:28 11/28/2024 10:24:46 Prostate specific antigen above reference range 343111861 R97.20 Lower urin david tract symptoms due to benign prostatic hypertrophy 6478811962 9101 N40.1 Retention of urine 40279 4002 R33.9 Acute urin david tract infection 448962389 N39.0 Health Concerns Section Related Observation LastModified by Organization Detai ls LastModified Time None Recorded Concern Status LastModified by Organization Details LastModified Time None Recorded Advance Directives Directive None Recorded Payers Insurance Date Sequence Insurance Name Policy Number Policy Perez Covered Member ID Perez Member ID Guarantor Name 11/18/2024 2 UNSPECIFIED REMIT PAYOR Tonny Andino 12/23/2024 2 [place] [id number] Tonny Andino [id number] Tonny Andino 12/20/2024 1 [place] Tnony Andino [id number] Tonny Andino Notes Date Note Type Note Provider Name and Address Organization Details Recorded Time 10/30/2024 text/html The patient is a n 84-year-old pleasant male with 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 He was referred by his primary care physician, Dr. Bah.He endorses associated urinary symptoms including weak/slow urine stream and nocturia x2 nightly, erectile dysfunction. He denies new or worsening pain in the low back or pelvis, dysuria, hematuria/hematosper august. The patient denies recent history of pelvic trauma or recent infections. He denies fever, chills, malaise, and unintentional weight loss.He denies familial history of prostate cancer. His past medical history is otherwise remarkable for hypertension, GERD, and arthritis. DINA BRAY PA-C [address] [place], [address], [facility] 10/30/2024 14:09:30 11/27/2024 text/html Mr. Andino i s a [...] and trace hematuria. DINA BRAY PA-C [address] [place], [address], [place] [facility] 12/07/2024 21:01:47
[2024-12-23 23:01] VITALS: BP 162/73; PULSE 73; O2SAT 95
[2024-12-23 23:21] LABS: Microscopic, Urine URINE MICROSCOPIC (MICROSCOPIC)
[2024-12-23 23:23] LABS: Bilirubin,Urine Negative (Negative); Blood, Urine 3+ (Negative); Color,Urine YELLOW (Yellow); Glucose,Urine (UA) Negative (Negative); Ketones,Urine Negative (Negative); Leukocyte Esterase,Urine Negative (Negative); Nitrate,Urine Negative (Negative); Protein,Urine Negative (Negative); Urobilinogen,Urine 0.2 EU/dl (0.2)
[2024-12-23 23:24] LABS: Appearance,Urine Slightly Cloudy (Clear)
[2024-12-23 23:33] LABS: Basophils % 0.4 % (0.1-2.0); Eosinophils # 0.1 Kmm3 (0.0-0.4); Eosinophils % 0.5 % (0.1-12.0); Hematocrit 39.5 % (42.0-52.0); Hemoglobin 13.4 g/dL (14.1-18.0); Immature Granulocytes # 0.02 10^3uL; Immature Granulocytes % 0.2 %; Lymphocytes # 0.6 K/mm3 (0.7-4.5); Lymphocytes % 5.9 % (10-50); Mean Corpuscular HGB Conc 33.9 g/dL (31.8-35.4); Mean Corpuscular Hemoglobin 30.8 pg (27.0-31.2); Mean Corpuscular Volume 90.8 fl (80-94); Mean Platelet Volume 9.9 fl (7.4-10.4); Monocytes # 0.4 K/mm3 (0.1-1.0); Monocytes % 3.8 % (1.7-9.3); Neutrophils % 89.2 % (37.0-80.0); Nucleated Red Blood Cells # 0 10^3/uL; Nucleated Red Blood Cells % 0 %; Platelet Count 248 K/mm3 (142-424); Red Blood Count 4.35 M/mm3 (4.60-6.20); Red Cell Distribution Width 11.9 % (11.5-17.5); Red Cell Distribution Width-SD 39.5 fL; White Blood Count 10.1 K/mm3 (4.8-10.8)
[2024-12-23 23:45] LABS: Alanine Aminotransferase 25 U/L (12-78); Albumin Level 4.5 g/dl (3.5-5.0); Albumin/Globulin Ratio 1.6 (1.1-1.8); Alkaline Phosphatase 88 U/L (38-126); Aspartate Amino Transferase 31 U/L (17-59); Blood Urea Nitrogen 17 mg/dl (9-20); Calcium 9.1 mg/dl (8.4-10.2); Carbon Dioxide 25 mmol/L (22.0-30.0); Chloride 103 mmol/L (98-107); Creatinine Clearance Estimated 57 mL/min (50-200); Estimated Glomerular Filt Rate 92 ml/min (>60); GFR (African American) 112 ML/MIN (>60); Globulin 2.9 g/dL (1.3-3.2); Glucose 136 mg/dl (74-100); Sodium 134 mmol/L (136-145); Total Protein,Serum 7.4 g/dl (6.3-8.2)
[2024-12-23 23:46] LABS: Bacteria,Urine Trace /lpf; RBC,Urine TNTC #/hpf (0-3); Uric Acid Crystals,Urine Trace /lpf
--- NOTE | 2024-12-24 00:47 | ED_ITS ---
Discharge Plan Disposition Patient Disposition: Home, Self-Care Condition: Good Prescriptions Prescriptions: No Action lisinopril 40 mg tablet 40 mg PO DAILY tamsulosin [Flomax] 0.4 mg capsule 0.4 mg PO DAILY 90 Days Qty: 90 3RF tamsulosin [Flomax] 0.4 mg capsule 0.4 mg PO DAILY Qty: 30 3RF Referrals Follow up/Referrals: Toro Causey MD [Primary Care Provider] - See instructions Activity Restrictions/Add. Instructions Additional Instructions/Restrictions: You were evaluated in the ER and are believed to be appropriate for discharge at this time. Continue all your home medications as previously prescribed, including your tamsulosin. Call [facility] first thing in the morning and tell the doctor who did your procedure if that you had to have a catheter placed because of bleeding and being unable to urinate. Make an appointment with [facility] for close outpatient follow-up to have the catheter removed in the next 5 to 7 days. Also make an appointment with your primary care doctor for reevaluation in 2 to 3 days. Return to the ER with any new, worsening, or otherwise concerning symptoms. Clinical Impressions Clinical Impression: Acute urinary retention, Hematuria Instructions Patient Instructions: DI for Urinary Retention in Men Print Language Print Language: [place] Discharge ED Provider: Mando Abarca Adult HPI General Chief complaint: Urogenital-Male Stated complaint: Unable to Urinate Time Seen by Provider: 12/23/24 23:14 Mode of Arrival: Ambulatory Source of Information: Patient Description of Symptoms (Recalled from ER Triage Doc. by RN): patient states he hasn't been able to urinate all day. When he tries can only get out a couple of drops. seen today in clinic. History of Present Illness HPI narrative: 84-year-old male presents to the ER with complaints of difficulty urinating. Patient reports the last time he urinated freely was last night. He states he had a procedure done today at [facility] to check his prostate. He reports they told him he would likely have a little blood in his urine. He admits since the time of the procedure he has not been able to pass any urine. He is complaining of lower abdominal pain and need to urinate without being able to. He denies fevers, chills, painful urination, obvious blood in the urine, chest pain, difficulty breathing, nausea, vomiting, diarrhea, or any other complaints or concerns. Patient has had symptoms like this in the past and had to have short-term urinary catheter. He reports he does take tamsulosin. Related Data Home Medications ?Medication ?Instructions ?Recorded ?Confirmed lisinopril 40 mg tablet 40 mg PO DAILY 08/08/23 10/08/23 Previous Rx's ?Medication ?Instructions ?Recorded tamsulosin 0.4 mg capsule (Flomax) 0.4 mg PO DAILY #30 caps 09/03/23 tamsulosin 0.4 mg capsule (Flomax) 0.4 mg PO DAILY 90 days #90 caps 10/08/23 Allergies Allergy/AdvReac Type Severity Reaction Status Date / Time No Known Allergies Allergy Verified 10/08/23 09:55 [facility] Disclaimer: The information contained in this section may have been updated after the patient was seen, as this information can be updated by other users. Medical History Osteoarthritis Surgical History History of hernia repair History of local excision of skin lesion Family History Other Family history of cancer Social History Smoking Status: Never smoker second hand exposure: No alcohol intake: never counseling provided: provider counseling substance use type: denies use current occupational status: retired Travel in the last 8 weeks?: None household members: significant other housing: house current occupational exposures/hazards: No caffeine: Yes Have you lived/traveled outside [place] in past 30 days?: No Contact w/someone who lives/traveled outside [place] past 30 days?: No Exposure to someone with infectious disease in past 14 days?: No Do you have a fever (greater than 100.4 F or 38 C)?: No Have you tested positive for COVID-19?: No Exposed to someone with COVID-19 in past 14 days?: No Do you have a sore throat?: No Do you have a cough?: No Do you have any weakness?: No Do you have any diarrhea?: No Are you experiencing any unusual bleeding?: No Do you have any muscle aches/pain?: No Do you have any abdominal pain?: No Are you experiencing loss of taste or smell?: No Other Medical History Have you received the Flu Vaccine for this season: Yes Have you received the Pneumonia Vaccine: Yes ROS Obtained: Yes Systems reviewed as appropriate & no additional complaints except as documented Per HPI Physical Exam General General appearance: alert and in no apparent distress Head Head exam: atraumatic and normocephalic Eye Eye exam: Present PERRL and EOMI ENT ENT exam: Present mucous membranes moist Neck Neck exam: Present normal inspection and full ROM Chest Chest inspection: Present symmetric chest wall rise Respiratory Respiratory exam: Present normal lung sounds bilaterally; Absent respiratory distress, wheezes or stridor Cardiovascular Cardiovascular exam: Present regular rate and normal rhythm Abdominal Exam Abdominal exam: Present soft and tenderness (Mild lower abdominal tenderness on initial exam, resolved after catheter placement); Absent distention, guarding or rebound exam: Absent urethral discharge Extremities Exam Extremities exam: Present full ROM Neurological Exam Neurological exam: Present alert and oriented X3; Absent motor sensory deficit Psychiatric Psychiatric exam: Present normal affect and normal mood Skin Skin exam: Present warm and dry Medical Decision Making Medical Records Medical records reviewed: Yes I reviewed the patient's medical records. Screening: Per USPSTF and CDC recommendations, given the prevalence of disease in our region, it is our hospital?s policy to screen for HIV and viral Hepatitis for all patients aged 18 and over and those with ongoing risk factors. Александр Inquiry Pt receiving controlled substance: No Vital Signs: 12/23/24 22:46 12/23/24 22:49 12/23/24 23:01 Temperature 97.5 F L Temperature Source Oral Pulse Rate 90 73 Pulse Rate [Left] 81 Respiratory Rate 20 Blood Pressure 185/88 H 162/73 H Blood Pressure [Right Arm] 185/88 H Blood Pressure Mean 129 128 Blood Pressure Mean [Right Arm] 120 Blood Pressure Source Blood Pressure Source [Right Arm] Automatic Cuff Blood Pressure Position Blood Pressure Position [Right Arm] Sitting 02 Sat by Pulse Oximetry 97 97 95 Oxygen Delivery Method Room Air Room Air Room Air 12/24/24 01:08 Temperature 98.1 F Temperature Source Oral Pulse Rate 64 Pulse Rate [Left] Respiratory Rate 18 Blood Pressure 146/75 H Blood Pressure [Right Arm] Blood Pressure Mean Blood Pressure Mean [Right Arm] Blood Pressure Source Automatic Cuff Blood Pressure Source [Right Arm] Blood Pressure Position Sitting Blood Pressure Position [Right Arm] 02 Sat by Pulse Oximetry Oxygen Delivery Method Room Air Lab Data Lab Results 12/23/24 23:16: Urine Color Yellow, Urine Appearance Slightly cloudy, Urine pH 6.0, Ur Specific Jewell 1.020, Urine Protein Negative, Urine Glucose (UA) Negative, Urine Ketones Negative, Urine Blood 3+ A, Urine Nitrate Negative, Urine Bilirubin Negative, Urine Urobilinogen 0.2, Ur Leukocyte Esterase Negative, Urine RBC Tntc, Urine WBC 3-5, Ur Squamous Epith Cells 3-5, Uric Acid Crystals Trace, Urine Bacteria Trace 12/23/24 23:26: WBC 10.1, RBC 4.35 L, Hgb 13.4 L, Hct 39.5 L, MCV 90.8, MCH 30.8, MCHC 33.9, RDW 11.9, Plt Count 248, MPV 9.9, Neut % (Auto) 89.2 H, Lymph % (Auto) 5.9 L, [place] % (Auto) 3.8, Eos % (Auto) 0.5, Baso % (Auto) 0.4, Neut # (Auto) 9.0 H, Lymph # (Auto) 0.6 L, [place] # (Auto) 0.4, Eos # (Auto) 0.1, Baso # (Auto) 0.0, Sodium 134 L, Potassium 4.0, Chloride 103, Carbon Dioxide 25, Anion Gap 10.0, BUN 17, Creatinine 0.80, Estimated Creat Clear 57, Estimated GFR 92, Est GFR ( Amer) 112, Glucose 136 H, Calcium 9.1, Total Bilirubin 1.0, AST 31, ALT 25, Alkaline Phosphatase 88, Total Protein 7.4, Albumin 4.5, Globulin 2.9, Albumin/Globulin Ratio 1.6 12/23/24 23:26 12/23/24 23:26 Orders (Tests/Meds): ORDERS Category Date Time Status CBC w/Auto Diff [Complete Blood Count Auto Diff] Stat Lab 12/23/24 23:26 Completed CMP [Comprehensive Metabolic Panel] Stat Lab 12/23/24 23:26 Completed Urinalysis and Microscopic Stat Lab 12/23/24 23:16 Completed Medical Decision Narrative: In summary, this 84-year-old male with comorbidities described in the HPI presents to the emergency department today with inability to urinate. On initial evaluation patient is hemodynamically stable, afebrile, mild lower abdominal tenderness prior to catheter placement, no genitalia abnormalities appreciated. Differential diagnosis includes but is not limited to acute urinary retention, urinary tract infection, hematuria, kidney dysfunction, electrolyte abnormalities. With the recent prostate instrumentation described by the patient I have highest suspicion for small amount of bleeding and inflammation of the prostate likely causing retention. Pate catheter was placed by nursing with 850 mL out initially. Basic serum labs and urine studies were sent for evaluation. Labs reviewed by me demonstrate patient has no leukocytosis, mild anemia which is nonactionable, normal platelets, CMP nonactionable, BUN 17, creatinine 0.8, UA with blood but only a few WBCs and trace bacteria. No evidence of infection. Will not treat for UTI at this time. Patient was placed in the ED observation at 0045 to monitor his urine output for total of 2 hours to ensure no evidence of postobstructive diuresis. On reassessment 2 hours after Pate catheter was placed, patient has had a total of 1050mL out. This is only an additional 200 mL since the catheter was placed. No evidence of postobstructive diuresis. With his good kidney function and good urinary flow with Pate in place I believe he is appropriate for discharge at this time. He is comfortable with this plan. He was given instructions to call [facility] first thing in the morning to discuss his ER visit and new catheter placement. No new prescriptions are indicated at this time. He already has a prescription for tamsulosin which I instructed him to continue. Patient was given instructions on symptomatic management, follow up instructions, and return precautions for the emergency department. Patient indicated understanding and was discharged in stable condition. Critical Care Critical Care Time Critical Care Time: No
[2024-12-24 01:08] VITALS: BP 146/75; PULSE 64; RESP 18; TEMP 36.7; O2SAT 95
--- NOTE | 2024-12-24 01:34 | PC.NURSE ---
patient was given leg bag to take home and instructed how to empty and use it.
== END 2024-12-24 01:36 | disposition home or self-care (01) ==
PROVIDERS: Emergency Provider Emergency Medicine; PCP Internal Medicine Adolescent Medicine
DX: R10.30 Lower abdominal pain, unspecified (principal); R33.9 Retention of urine, unspecified; R31.9 Hematuria, unspecified
CPT/HCPCS: 51702; 80053; 81001; 85025; 99283

== ENCOUNTER 2025-01-30 18:59 | Emergency (ER) | payer MEDICARE, BC, SELFPAY ==
[2025-01-30 19:12] VITALS: BP 128/105; PULSE 72; O2SAT 96
[2025-01-30 19:14] VITALS: BP 128/105; PULSE 63; RESP 18; TEMP 37.1; O2SAT 95; BMI 24.3
--- OUTSIDE RECORDS SUMMARY | 2025-01-30 19:19 | XMS_ITS | Continuity of Care Document ---
[facility] Address [address] [place] [address] [place] [address] Care Team Providers Care Copra Processor Name Role Phone KIA BAH Referring Provider Assessment Encounter Date Assessment Date Assessment LastModified by Organization Details LastModified Time 01/08/2025 01/08/2025 - 84-year-old male with history of elevated PSA presenting with high-risk prostate cancer. 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 - Evaluation continues with PSMA and bone scans to guide treatment choice between surgery or radiation with hormonal therapy. [email or web address] Not available 01/11/2025 10:25:41 Plan of Treatment Reminders Order Date Submit Date Provider Last Modified By Organization Details Last Modified Time Details Appointments NUCLEAR MED STUDY 2024 02:00P M NUCLEAR_M EDICINE Not available Not available Not available RECHECK 2024 01:00P M KALEE SALEH MD Not available Not available Not available Lab urinalysi s panel, auto 2024 025 [email or web address] [id number] [facility] [place] [facility], [address] [place] [address] Dr Jimenez, [place], [address], 01/12/2025 10:57:17 culture, urine 2024 025 4 [facility], [address] [place] [address], [address], 01/12/2025 10:57:17 Referral None recorded. Procedures None recorded. Surgeries None recorded. Imaging PET-CT, skull base to mid-thigh scan 2024 025 [facility], [address] [place], [address], 01/27/2025 12:59:10 NM, bone scan, whole body 2024 025 [facility], [address] [place], [address], 01/30/2025 16:21:45 Medication Orders None recorded. Patient TargetsNo targets recorded. Patient Instructions Encounter Date Encounter Id Patient Instructions Last Modified By Organization Details Last Modified Time 01/08/2025 [id number] - Wait for imaging appointments for PSMA and bone scans. - Consider treatment options: Surgery or Radiation and Hormonal Therapy. - Follow further evaluation. - Contact office for scheduling updates. - Keep updated with test scheduling and arrive on time. [email or web address] Not available 01/08/2025 14:08:44 Reason for Referral None Reported. Results Created Date Observation Date Name Description Value Unit Range Abnormal Flag Note LastModifiedBy Organization Detail LastModifiedTime 01/09/2001/08/2025 urina lysis panel , auto Unknown Analyte Clean Catch Not Available [facility] With [address] Jimenez, [place], [address], 01/08/2025 14:05:39 01/09/20 25 01/08/2025 urina lysis panel , auto Unknown Analyte Yellow Not Available [facility] With [address] Jimenez, [place], [address], 01/08/2025 14:05:39 01/09/20 25 01/08/2025 urina lysis panel , auto Unknown Analyte Clear Not Available [facility] With [address] Jimenez, [place], [address], 01/08/2025 14:05:39 01/09/20 25 01/08/2025 urina lysis panel , auto Unknown Analyte 1.020 Not Available [facility] With [address] [place], [address], 01/08/2025 14:05:39 01/09/20 25 01/08/2025 urina lysis panel , auto Unknown Analyte 1.003 - 1.030 Not Available [facility] With [address] [place], [address], 01/08/2025 14:05:39 01/09/20 25 01/08/2025 urina lysis panel , auto Unknown Analyte 5.0 Not Available [facility] With [address] [place], [address], 01/08/2025 14:05:39 01/09/20 25 01/08/2025 urina lysis panel , auto Unknown Analyte 5.0 - 8.0 Not Available [facility] With [address] [place], [address], 01/08/2025 14:05:39 01/09/20 25 01/08/2025 urina lysis panel , auto Unknown Analyte 75 Phillip/uL Not Available [facility] With [address] [place], [address], 01/08/2025 14:05:39 01/09/20 25 01/08/2025 urina lysis panel , auto Unknown Analyte Negati ve Not Available [facility] With [address] [place], [address], 01/08/2025 14:05:39 01/09/20 25 01/08/2025 urina lysis panel , auto Unknown Analyte Negati ve Not Available [facility] With [address] [place], [address], 01/08/2025 14:05:39 01/09/20 25 01/08/2025 urina lysis panel , auto Unknown Analyte Negati ve Not Available [facility] With [address] Jimenez, [place], [address], 01/08/2025 14:05:39 01/09/20 25 01/08/2025 urina lysis panel , auto Unknown Analyte Negati ve Not Available [facility] With [address] [place], [address], 01/08/2025 14:05:39 01/09/20 25 01/08/2025 urina lysis panel , auto Unknown Analyte Negati ve Not Available [facility] With [address] [place], [address], 01/08/2025 14:05:39 01/09/20 25 01/08/2025 urina lysis panel , auto Unknown Analyte Normal Not Available [facility] With [address] [place], [address], 01/08/2025 14:05:39 01/09/20 25 01/08/2025 urina lysis panel , auto Unknown Analyte Normal Not Available [facility] With [address] [place], [address], 01/08/2025 14:05:39 01/09/20 25 01/08/2025 urina lysis panel , auto Unknown Analyte Negati ve Not Available [facility] With [address] [place], [address], 01/08/2025 14:05:39 01/09/20 25 01/08/2025 urina lysis panel , auto Unknown Analyte Negati ve Not Available [facility] With [address] [place], [place], [address], 01/08/2025 14:05:39 01/09/20 25 01/08/2025 urina lysis panel , auto Unknown Analyte 1 mg/dL Not Available [facility] With [address] [place], [address], 01/08/2025 14:05:39 01/09/20 25 01/08/2025 urina lysis panel , auto Unknown Analyte Normal Not Available [facility] With [address] [place], [address], 01/08/2025 14:05:39 01/09/20 25 01/08/2025 urina lysis panel , auto Unknown Analyte 1 mg/dL Not Available [facility] With [address] [place], [address], 01/08/2025 14:05:39 01/09/20 25 01/08/2025 urina lysis panel , auto Unknown Analyte Negati ve Not Available [facility] With [address] [place], [address], 01/08/2025 14:05:39 01/09/20 25 01/08/2025 urina lysis panel , auto Unknown Analyte 250 Jayson/uL Not Available [facility] With [address] [place], [address], 01/08/2025 14:05:39 01/09/20 25 01/08/2025 urina lysis panel , auto Unknown Analyte Negati ve Not Available [facility] With [address] [place], [address], 01/08/2025 14:05:39 01/01/20 25 12/23/2024 MRI, prost ate, w/o contr ast [address] [place] [address] [phone] Patialla t Name: TONNY Aguilar t : 1939 Patien t Orderi ng Provid er: DINA Jewell EXAM DATE: 2024 EXAM: MR 3D PROSTA TE Report Summar y: The patien ts' previo us multip aramet kobe prosta te MRI images were review ed by a board- certif ied Radiol ogist. Follow ing a compre hensiv e review , prosta te mappin g was perfor med utiliz ing the [employer] 3D imagin g softwa re platfo rm. The [employer] system was used to genera te detail ed 3D recons tructi on of the prosta te anatom y, includ ing identi ficati on of target lesion s based on MRI findin gs. These 3D-map ped images were subseq uently integr ated with real-t kevin transr ectal ultras ound (TRUS) images using MRI/ul trasou nd fusion techno logy. The fused imagin g facili tated accura te target ing of suspic ious region s during the prosta te biopsy proced ure. Target ed biopsy sample s were obtain ed from MRI-id entifi ed lesion s in accord ance with curren t clinic al protoc ols. Impres eusebia: 3D prosta te mappin g comple osito using [employer] softwa re. Mappin g Radiol ogist: Dr. Donald Weaver Interp reted By: Donald Weaver MD Electr onical ly Signed By: Donald Weaver MD on 025 12:[email or web address] [place] [address] Radiology [facility] [address] [place], [address], 01/01/2025 09:03:23 01/28/20 25 01/27/2025 PET-C T, skull base to mid-t high scan [address] [facility] [place] [address] [phone] [place] [address] Patien t Name: TONNY THOMAS Patialla t : 1939 Patien t Orderi ng Provid er: KALEE Quiñones EXAM DATE: 2024 EXAM: PET-CT PSMA SKULL MID THIGH INT ST CLINIC AL INFORM ATION: Prosta te Cancer - Initia l PROCED URE: A baseli ne serum creati nine with eGFR was obtain ed prior to inject ion of contra st medium due to the patien ts risk factor s for MONISHA. Calcul ated eGFR at time of exam was GFR = 71 5.6 mCi Ga-68 PSMA ([facility] [address]11- 100-64 ) was inject ed IV. After an uptake time of 66 minute s, vertex throug h midthi gh PET imagin g was perfor med. This was follow ed by a low dose attenu ation correc tion/a natomi c locali zation CT from vertex throug h the midthi gh levels . Urinar y tract was opacif ied with an inject ion of 50 mL Omnipa que 350 (1 x 50 ml bottle of [facility] 0407-1 414-89 ) admini stered [address] scan. None was wasted and discar ded. The patien t did not requir e sedati on for this exam. COMPAR ANTONIO: MRI dated 020 FINDIN GS ON PET WITH CT CORREL ATION: Normal expect ed uptake is seen in the lacrim al glands , saliva ry glands , sinona silvia comple x, liver, spleen , kidney s, small bowel and urinar y bladde r. Refere nce blood pool mean SUV = 0.9. Refere nce mean SUV of the liver = 5.5. Refere nce mean SUV of the paroti d glands = 10. Prosta te cancer specif ic areas of uptake are descri bed below. PROSTA TE/PRO STATIC BED: Prosta te gland is intact . Mild psma avidit y is presen t involv ing both sides of the gland. PSA values as high as 4.1 PELVIC LYMPH NODES: No uptake is seen in any of the pelvic lymph node region s. DISTAN T SPREAD : No lympha denopa thy or abnorm al uptake is seen in the distan t retrop eriton eal, medias tinal, or suprac lavicu lar lymph node region s. No suspic ious skelet al lesion or area of uabnor mal skelet al uptake is seen. No suspic ious pulmon david nodule or area of abnorm al uptake is seen. ADDITI ONAL FINDIN GS ON CT: No signif icant additi onal findin g is seen. COMBIN ED IMPRES EUSEBIA: 1. Low-le lucinda psma avidit y in the prosta te compat ible with malign maurisio. No indica tion of local or distan t metast atic diseas e is noted Interp reted By: Donald Weaver MD Electr onical ly Signed By: Donald Weaver MD on 025 12:[email or web address] Radiology [address], [address], 01/28/2025 13:31:44 01/31/20 25 01/30/2025 NM, bone scan, whole body [address] [address] Patien t Name: TONNY telles : 1939 Patialla t Orderi [facility] er: KALEE Quiñones EXAM DATE: 2024 EXAM: NM BONE IMAGIN G, WHOLE BODY HISTOR Y: 84-yea r-old male with prosta te cancer . COMPAR ANTONIO: None. TECHNI QUE: Whole body bone scan was perfor med using techne tium 99m MDP 20.3 mCi IV ([facility] [id number] -0040- 1). Two hour delaye d images were obtain ed. FINDIN GS: The calvar ium appear s normal . There is possib le sinus diseas e. There are modera te to severe degene rative change s in the should ers and mild degene rative change s at the sterno clavic ular joints . There is increa sed uptake along the anteri or-inf erior- latera l aspect of the right eighth rib, but this may repres ent prior trauma . There are mild degene rative change s throug hout the spine. There are mild to modera te degene rative change s in the hips, knees, and feet. The bladde r is disten ded. No metast atic lesion is identi fied. IMPRES EUSEBIA: 1. No discre te metast atic lesion is seen. Interp reted By: Lorraine العراقي MD Electr onical ly Signed By: Lorraine العراقي MD on 025 4:16 PM INTERFACE [facility] [address] [place], [address], 01/30/2025 16:21:45 Result Notes None recorded. Problems Name Problem SNOMED Code Status Onset Date Resolution Date Notes Provider Name and Address Organization Details Recorded Time Lower urinary tract symptoms due to benign prostatic hypertrophy 0478100779225 1 Active 2024 DINA BRAY PA-C [address] [place], [address], [facility] 5 14:07:39 Prostate specific antigen above reference range 202897624 Active 2024 DINA BRAY PA-C [address] [place], [address], [facility] 5 14:07:41 Problem Notes None recorded. Procedures Surgical History Date Name Laterality Status Provider Name and Address Organization Details Recorded Time [facility] 14:05:14 Imaging Results None recorded. Procedure Notes None recorded. Medical Equipment None Reported. Allergies No known drug allergies Medications Name Sig Start Date Stop Date Status Note LastModified by Organization Details LastModified Time amlodipine 5 mg tablet Take 1 tablet every day by oral route. active Not Available Not Available No t Available Macrobid 100 mg capsule Take 1 capsule every 12 hours by oral route for 10 days, for UTI. 01/29 completed Not Available Not Available Not Available tamsulosin 0.4 mg capsule Take 1 capsule every day at bedtime for urinary symptoms. 2024 active Not Available Not Available Not Avai lable Cipro 500 mg tablet Take 1 tablet twice a day by oral route as directed for 3 days. 01/01 completed Not Available Not Available Not Available lisinopril 40 mg tablet Take 1 tablet every day by oral route. active Not Available Not Available No t Available tadalafil 5 mg tablet Take 1 capsule on an empty stomach every morning for urinary symptoms. 2024 active Not Available Not Available Not Avai lable Vitals Date Recorded Body height Body mass index (BMI) Body weight Provider Name and Address Organization Details Last Updated DateTime 01/08/2025 172.72 cm 24.3 kg/m2 13366.78 g Chari Wolft [facility] 01/08/2025 14:04:46 Social History Question Answer Notes LastModified by Organizat ion Details LastModified Time Tobacco Smoking Status Never Smoker Chari Byrd [facility] 10/30/2024 13:22:38 What Was The Date Of Your Most Recent Tobacco Screening? 01/08/2025 Information not available 01/08/2025 Sex: Unknown Functional Status Question Answer Note [...] SNOMED-CT Code Diagnosis ICD10 Code Diagnosis Note [id number] KALEE SALEH MD SURGERY SCHEDULE [address] [place] [address] 12/23/2024 13:33:55 12/23/2024 13:35:07 [id number] KALEE SALEH MD [facility] [address] [place] [address],[address] [place] [address] 01/08/2025 13:43:44 01/08/2025 16:02:57 Malignant neoplasm of prostate [id number] C61 Prostate s pecific antigen above reference range 672036288 R97.20 Acute urin david tract infection 683577326 N39.0 Health Concerns Section Related Observation LastModified by Organization Detai ls LastModified Time None Recorded Concern Status LastModified by Organization Details LastModified Time None Recorded Payers Encounter Date Sequence Insurance Name Policy Number Policy Perez Covered Member ID Perez Member ID Guarantor Name 01/08/2025 1 [place] Tonny Andino [id number] Tonny Andino 01/08/2025 2 [place] [id number] Tonny Andino [id number] Tonny Andino Notes Date Note Type Note Provider Name and Address Organization Details Recorded Time 01/08/2025 text/html The patient is a n 84-year-old male presenting with high-risk prostate cancer. High PSA of 15.5 ng/mL led to an MRI-directed biopsy revealing malignant neoplasm with Lori 4+3 on the left and 4+4 on the right prostate. Prostate volume measured 80 cm3. Genomic ticker installer score was 0.99, indicating high risk cancer. Treatment requires imaging such as a PSMA scan and bone scan to determine disease extent. Options for management discussed include surgery or radiation with hormonal suppression. - Labs: Elevated PSA level pre-biopsy measured at 15.5 ng/mL. - Tests and Diagnostics: MRI-directed transrectal ultrasound needle biopsy; [place] scores of 4+3 (left) and 4+4 (right); Genomic ticker installer score of 0.99. KALEE SALEH MD [address] [place] [address], [address], [facility] hospital 01/11/2025 10:26:03
--- OUTSIDE RECORDS SUMMARY | 2025-01-30 19:19 | XMS_ITS | Data Portability ---
Author Organization NICOLE THANG Ren OCALA CLOSED Address [address] [place] [address] Care Team Providers Care Banquet Steward Name Role Phone KIA BAH Referring Provider [...] new or worsening symptoms, medication intolerance, etc. [email or web address] Not available 10/30/2024 14:09:16 11/27/2024 11/27/2024 Assessment: Elevated PSA with PI-RADS category 5 lesion, BPH with [place], Erectile Dysfunction Urine sent for culture, will treat as clinically appropriate per culture and sensitivity results. I reviewed recent imaging and we discussed results in depth today. My recommendations include fusion biopsy of the prostate performed by Dr. Choi. I also recommend that the patient continue with the current tamsulosin/tadalaf il daily regimen for his obstructive symptoms, if he continues to tolerate these well. He reports poor compliance with medications, I reminded him that it is important to take these medications as prescribed in order for them to be effective. Will plan to follow-up after fusion biopsy, sooner if needed. Not available 12/07/2024 21:00:57 12/23/2024 12/23/2024 SURGERY DATE: 12/23/2024 PREOPERATIVE DIAGNOSIS: Elevated PSA POSTOPERATIVE DIAGNOSIS: Elevated PSA PROCEDURE: 1. Transrectal ultrasound prostate, 2. Ultrasound guidance for needle injection of local analgesia, 3. MRI directed transrectal ultrasound fusion guided needle biopsy of prostate SURGEON: Kalee Choi MD ANESTHESIA: MAC ESTIMATED BLOOD LOSS: <2 ml COMPLICATIONS: None. SPECIMENS: A total of 15 prostate biopsies were obtained from 6 locations - right apex, right mid gland, right base, left apex, left mid gland, left base INDICATIONS: Elevated PSA OPERATIVE NOTE: Patient was correctly identified in the preoperative holding area. Informed consent was obtained. He is taken to the operating room and positioned in lateral decubitus knee tuck position. All pressure points padded. Timeout procedure completed. He had taken oral antibiotics. Transrectal ultrasonography 3-D mapping and MRI fusion performed showing prostate volume of 80 cm , PSA of 15.5. Transrectal ultrasound guidance for needle injection of local analgesia was performed at the prostate and seminal vesicle junction bilaterally and the prostate apex. Once this was allowed to take effect transrectal ultrasound needle biopsy of the prostate was performed in the above-mentioned locations. Once adequate specimens had been obtained from all locations the procedure was then completed. Transrectal ultrasound was removed and patient was taken to the recovery room. DISPOSITION: The patient tolerated the procedure well. He was taken to the recovery room in stable condition. He will be discharged home with instructions for outpatient follow up. [email or web address] Not available 01/01/2025 11:25:28 01/08/2025 01/08/2025 - 84-year-old ma le with history of elevated PSA presenting with high-risk prostate cancer. 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 - Evaluation continues with PSMA and bone scans to guide treatment choice between surgery or radiation with hormonal therapy. [email or web address] Not available 01/11/2025 10:25:41 Plan of Treatment Reminders Order Date Submit Date Provider Last Modified By Organization Details Last Modified Time Details Appointments NUCLEAR MED STUDY 2024 02:00P M NUCLEAR_M EDICINE Not available Not available Not available RECHECK 2024 01:00P M KALEE CHOI MD Not available Not available Not available Lab urinalysi s panel, auto 2024 025 [email or web address] 4 [facility] Extended Services With [address], [place], [address], 01/12/2025 10:57:17 culture, urine 2024 025 [email or web address] 4 [facility], [address] [place] [address], [address], 01/12/2025 10:57:17 urinalysi s panel, auto 2024 025 [email or web address] 4 [facility] Extended Services With [address]enez, [place], [address], 11/27/2024 15:35:25 culture, urine 2024 025 [facility], [address] [place] [address], [address], 11/29/2024 11:12:27 urinalysi s panel, auto 2024 025 [email or web address] 4 [facility] Extended Services With [address] Jimenez, [place], [address], 10/30/2024 14:01:03 Referral None recorded. Procedures None recorded. Surgeries prostate needle biopsy (SURG) [email or web address], [address] [place] [address], [place] [address], [place], [address], 01/20/2025 08:38:58 Imaging PET-CT, skull base to mid-thigh scan 2024 025 [facility], [address] [place], [address], 01/27/2025 12:59:10 NM, bone scan, whole body 2024 025 [facility], [address] [place], [address], 01/30/2025 16:21:45 MRI, pelvis, w/wo contrast 2024 025 [facility], [address] [place] [address], [address], 11/14/2024 14:24:07 Medication Orders tamsulosi n 0.4 mg capsule 2024 025 [facility], [address], [address], 10/30/2024 14:02:40 tadalafil 5 mg tablet 2024 025 [facility], [address] [place] [address], [address], 10/30/2024 14:02:09 Patient TargetsNo targets recorded. Patient Instructions Encounter Date Encounter Id Patient Instructions Last Modified By Organization Details Last Modified Time 10/30/2024 [id number] learning about healthy weight [email or web address] Not available 10/30/2024 14:01:03 01/08/2025 [id number] - Wait for imaging appointments for PSMA [...] Abnormal Flag Note LastModifiedBy Organization Detail LastModifiedTime 10/31/19 25 10/30/2024 urina lysis panel , auto Unknown Analyte Clean Catch Not Available [facility] Services With [address], [place], [address], 10/30/2024 13:25:08 10/31/19 25 10/30/2024 urina lysis panel , auto Unknown Analyte Yellow Not Available [facility] With [address] [place], [address], 10/30/2024 13:25:08 10/31/19 25 10/30/2024 urina lysis panel , auto Unknown Analyte Clear Not Available [facility] With [address] [place], [address], 10/30/2024 13:25:08 10/31/19 25 10/30/2024 urina lysis panel , auto Unknown Analyte 1.015 Not Available [facility] With [address] [place], [address], 10/30/2024 13:25:08 10/31/19 25 10/30/2024 urina lysis panel , auto Unknown Analyte 1.003 - 1.030 Not Available [facility] With [address] [place], [address], 10/30/2024 13:25:08 10/31/19 25 10/30/2024 urina lysis panel , auto Unknown Analyte 6.5 Not Available [facility] With [address] [place], [address], 10/30/2024 13:25:08 10/31/19 25 10/30/2024 urina lysis panel , auto Unknown Analyte 5.0 - 8.0 Not Available [facility] With [address] [place], [address], 10/30/2024 13:25:08 10/31/19 25 10/30/2024 urina lysis panel , auto Unknown Analyte Negati ve Not Available [facility] With [address] [place], [address], 10/30/2024 13:25:08 10/31/19 25 10/30/2024 urina lysis panel , auto Unknown Analyte Negati ve Not Available [facility] With [address] [place], [address], 10/30/2024 13:25:08 10/31/19 25 10/30/2024 urina lysis panel , auto Unknown Analyte Negati ve Not Available [facility] With [address] [place], [address], 10/30/2024 13:25:08 10/31/19 25 10/30/2024 urina lysis panel , auto Unknown Analyte Negati ve Not Available [facility] With [address] [place], [address], 10/30/2024 13:25:08 10/31/19 25 10/30/2024 urina lysis panel , auto Unknown Analyte Negati ve Not Available [facility] With [address] [place], [address], 10/30/2024 13:25:08 10/31/19 25 10/30/2024 urina lysis panel , auto Unknown Analyte Negati ve Not Available [facility] With [address] [place], [address], 10/30/2024 13:25:08 10/31/19 25 10/30/2024 urina lysis panel , auto Unknown Analyte Normal Not Available [facility] With [address] [place], [address], 10/30/2024 13:25:08 10/31/19 25 10/30/2024 urina lysis panel , auto Unknown Analyte Normal Not Available [facility] With [address] [place], [address], 10/30/2024 13:25:08 10/31/19 25 10/30/2024 urina lysis panel , auto Unknown Analyte Negati ve Not Available [facility] With [address] [place], [address], 10/30/2024 13:25:08 10/31/19 25 10/30/2024 urina lysis panel , auto Unknown Analyte Negati ve Not Available [facility] With [address] [place], [address], 10/30/2024 13:25:08 10/31/19 25 10/30/2024 urina lysis panel , auto Unknown Analyte 1 mg/dL Not Available [facility] With [address] [place], [address], 10/30/2024 13:25:08 10/31/19 25 10/30/2024 urina lysis panel , auto Unknown Analyte Normal Not Available [facility] With [address] [place], [address], 10/30/2024 13:25:08 10/31/19 25 10/30/2024 urina lysis panel , auto Unknown Analyte Negati ve Not Available [facility] With [address] [place], [address], 10/30/2024 13:25:08 10/31/19 25 10/30/2024 urina lysis panel , auto Unknown Analyte Negati ve Not Available [facility] With [address] [place], [address], 10/30/2024 13:25:08 10/31/19 25 10/30/2024 urina lysis panel , auto Unknown Analyte 50 Jayson/uL Not Available [facility] With [address] [place], [address], 10/30/2024 13:25:08 10/31/19 25 10/30/2024 urina lysis panel , auto Unknown Analyte Negati ve Not Available [facility] With [address] [place], [address], 10/30/2024 13:25:08 11/28/19 25 12/01/2024 URINE CULTU RE urine culture No growth day 3. Not Available [facility] [address] [place] [address], [place], [address], 12/01/2024 08:49:09 11/28/19 25 11/27/2024 urina lysis panel , auto Unknown Analyte Clean Catch Not Available [facility] With [address], [place], [address], 11/26/2024 16:37:57 11/28/19 25 11/27/2024 urina lysis panel , auto Unknown Analyte Yellow Not Available [facility] With [address] [place], [address], 11/26/2024 16:37:57 11/28/19 25 11/27/2024 urina lysis panel , auto Unknown Analyte Clear Not Available [facility] With [address], [place], [address], 11/26/2024 16:37:57 11/28/19 25 11/27/2024 urina lysis panel , auto Unknown Analyte 1.020 Not Available [facility] With [address] [place], [address], 11/26/2024 16:37:57 11/28/19 25 11/27/2024 urina lysis panel , auto Unknown Analyte 1.003 - 1.030 Not Available [facility] With [address] [place], [address], 11/26/2024 16:37:57 11/28/19 25 11/27/2024 urina lysis panel , auto Unknown Analyte 5.0 Not Available [facility] With [address] [place], [address], 11/26/2024 16:37:57 11/28/19 25 11/27/2024 urina lysis panel , auto Unknown Analyte 5.0 - 8.0 Not Available [facility] With [address] [place], [address], 11/26/2024 16:37:57 11/28/19 25 11/27/2024 urina lysis panel , auto Unknown Analyte 75 Phillip/uL Not Available [facility] With [address] [place], [address], 11/26/2024 16:37:57 11/28/19 25 11/27/2024 urina lysis panel , auto Unknown Analyte Negati ve Not Available [facility] With [address] [place], [address], 11/26/2024 16:37:57 11/28/19 25 11/27/2024 urina lysis panel , auto Unknown Analyte Negati ve Not Available [facility] With [address], [place], [address], 11/26/2024 16:37:57 11/28/19 25 11/27/2024 urina lysis panel , auto Unknown Analyte Negati ve Not Available [facility] With [address] [place], [address], 11/26/2024 16:37:57 11/28/19 25 11/27/2024 urina lysis panel , auto Unknown Analyte Negati ve Not Available [facility] With [address] [place], [address], 11/26/2024 16:37:57 11/28/19 25 11/27/2024 urina lysis panel , auto Unknown Analyte Negati ve Not Available [facility] With [address], [place], [address], 11/26/2024 16:37:57 11/28/19 25 11/27/2024 urina lysis panel , auto Unknown Analyte Normal Not Available [facility] With [address] [place], [address], 11/26/2024 16:37:57 11/28/19 25 11/27/2024 urina lysis panel , auto Unknown Analyte Normal Not Available [facility] With [address] [place], [address], 11/26/2024 16:37:57 11/28/19 25 11/27/2024 urina lysis panel , auto Unknown Analyte Negati ve Not Available [facility] With [address] [place], [address], 11/26/2024 16:37:57 11/28/19 25 11/27/2024 urina lysis panel , auto Unknown Analyte Negati ve Not Available [facility] With [address] [place], [address], 11/26/2024 16:37:57 11/28/19 25 11/27/2024 urina lysis panel , auto Unknown Analyte 1 mg/dL Not Available [facility] With [address] [place], [address], 11/26/2024 16:37:57 11/28/19 25 11/27/2024 urina lysis panel , auto Unknown Analyte Normal Not Available [facility] With [address] [place], [address], 11/26/2024 16:37:57 11/28/19 25 11/27/2024 urina lysis panel , auto Unknown Analyte Negati ve Not Available [facility] With [address] [place], [address], 11/26/2024 16:37:57 11/28/19 25 11/27/2024 urina lysis panel , auto Unknown Analyte Negati ve Not Available [facility] With [address] [place], [address], 11/26/2024 16:37:57 11/28/19 25 11/27/2024 urina lysis panel , auto Unknown Analyte Trace Not Available [facility] With [address] [place], [address], 11/26/2024 16:37:57 11/28/19 25 11/27/2024 urina lysis panel , auto Unknown Analyte Negati ve Not Available [facility] Extended Services With [address], [place], [address], 11/26/2024 16:37:57 12/24/19 25 12/23/2024 SURGI RUBEN surgical SEE BELOW abnormal Surgi ruben Patho logy Repor t NAME: TONNY SEPULVEDA PATH: [id number] 2 DATE of : 06/21 9 (Copy to: Diagn osis: A) Left prost ate, needl e core biops y: Prost atic adeno carci noma, Gleas on score 4+3=7 , Grade Group 3, invol ving 3 of 9 cores ; <10%, 20%, 20%; 60% Gleas on patte rn B) Right prost ate, needl e core biops y: Prost atic adeno carci noma, Gleas on score 4+4 = 8, Grade Group 4, invol ving 7 of 9 cores ;<10% , <10%, <10%, 10%, 30%, 80%, 90% (see comme nt). Comme nt: The tumor is at the edges of many of the cores and is fragm ented with detac hed fragm ents of tumor also ident ified hinde ring abili ty to asses s perce ntage of cores invol jose. C) Right trans ition zone, needl e core biops y: Prost atic adeno carci noma, Gleas on score 4+4 = 8, Grade Group 4, invol ving 4 of 5 cores ; <10%, 30%, 90% and disco ntinu ously 90% COMME NT: Large cribr iform Gleas on patte rn 4 is ident ified . SOURC E OF SPECI MEN: PROST ATE , LEFT PROST ATE , RIGHT PROST ATE , RIGHT TRANS ITION ZONE CLINI RUBEN INFOR MATIO N: R 97.20 PSA 15.5 Gross Descr iptio n: A) Patie nt's name and date of verif ied. Recei jose in forma cherelle label ed with the patie nt's name and desig nated left prost ate are nine thin cores of sandhu-w flory tissu e measu ring 0.2, 0.3, 0.6, 0.8, 0.9, 1.4, 1.5, 1.7, and 1.8 cm in lengt h. Entir raymundo submi tted in two casse ttes label ed A1-A2 . B) Eugenio rendon's name and date of verif ied. Recei jose in forma cherelle label ed with the eugenio rendon's name and desig nated righ t prost ate are nine thin cores of sandhu-w flory tissu e measu ring (2) 0.2, (2) 0.3, 0.4, 0.5, 0.8, 1.1 and 1.4 cm in lengt h. Entir raymundo submi tted in three casse ttes label ed B1-B3 . C) Eugenio rendon's name and date of verif ied. Recei jose in forma cherelle label ed with the eugenio rendon's name and desig nated righ t trans ition zone are five thin cores of sandhu-w flory tissu e measu ring 0.5, 0.9, 1.7, and (2) 1.8 cm in lengt h. Entir raymundo submi tted in two west berline ttes label ed C1-C2 . SB 12/24 07:10 PM Micro scopi c Descr iptio n: A micro scopi c exami natio n has been perfo rmed and the resul t(s) are as noted above . PIN 4 immun ohist ochem ical stain s perfo rmed on speci mens A, B, and C to aid in disti nguis tati prost atic intra ducta l carci noma versu s cribr iform Gleas on patte rn 4. This test was devel oped and its perfo rmanc e sandra cteri stics deter mined by the [facility] . It has not been clear ed or appro jose by the [place] Food and Drug Admin istra tion (FDA) . The FDA has deter mined that such clear ance or appro lesly is not neces lori. These tests are used solel y for clini ruben purpo ses. They shoul d not be regar ded as inves tigat ional or for resea [facility]. This labor atory is regul ated under the Clini ruben Labor atory Impro vemen t Amend ments of 1987 (CLIA ' 88), as quali fied to perfo rm high compl exity testi ng. DESTINY ROBERTO Nuria CHANG IEL-P MD COLIN Matilde d Out Date: 12/25 16:52 Page 1 of 1 Not Available [facility] [address] [place] [address], [address], 12/25/2024 16:52:46 01/09/2001/08/2025 URINE CULTU RE staphylococc us epidermidis Organi sm: Staphy lococc us epider midis Not Available [facility] [address] [place] [address], [address], 01/12/2025 09:34:11 01/09/20 25 01/12/2025 URINE CULTU RE urine culture abnormal ISOLA TE #1 COLON Y COUNT : 10,00 0 - 100,0 00 CFU/M L Proba ble Staph yloco ccus sp.; ID and sensi tivit y in progr ess. See [place]lett te Resul t(s) Below Staph yloco ccus epide rmidi s Not Available [facility] [place], [address], 01/12/2025 09:34:11 01/09/20 25 01/12/2025 URINE CULTU RE amox/K clav'ate(C) <=4/2 ug/mL susceptib le Not Available [facility] [place], [address], 01/12/2025 09:34:11 01/09/20 25 01/12/2025 URINE CULTU RE amp/sulbacta m(C) <=8/4 ug/mL susceptib le Not Available [facility] [address] [place] [address], [address], 01/12/2025 09:34:11 01/09/2001/12/2025 URINE CULTU RE cefazolin <=8 ug/mL susceptib le Not Available [facility] [address] [place] [address], [address], 01/12/2025 09:34:11 01/09/2001/12/2025 URINE CULTU RE ciprofloxaci n >2 ug/mL resistant Not Available [facility] [address] [place] [address], [address], 01/12/2025 09:34:11 01/09/2001/12/2025 URINE CULTU RE gentamicin <=4 ug/mL susceptib le Not Available [facility] [address] [place] [address], [address], 01/12/2025 09:34:11 01/09/2001/12/2025 URINE CULTU RE levofloxacin >4 ug/mL resistant Not Available [facility] [address] [place] [address], [address], 01/12/2025 09:34:11 01/09/2001/12/2025 URINE CULTU RE nitrofuranto in <=32 ug/mL susceptib le Not Available [facility] [address] [place] [address], [address], 01/12/2025 09:34:11 01/09/2001/12/2025 URINE CULTU RE oxacillin <=0.25 ug/mL susceptib le Not Available [facility] [address] [place] [address], [address], 01/12/2025 09:34:11 01/09/2001/12/2025 URINE CULTU RE rifampin <=1 ug/mL susceptib le Not Available [facility] [address] [place] [address], [address], 01/12/2025 09:34:11 01/09/20 25 01/12/2025 URINE CULTU RE tetracycline <=4 ug/mL susceptib le Not Available [facility] [address] [place] [address], [address], 01/12/2025 09:34:11 01/09/20 25 01/12/2025 URINE CULTU RE trimeth/sulf a 1/19 ug/mL susceptib le Not Available [facility] [address] [place] [address], [address], 01/12/2025 09:34:11 01/09/20 25 01/12/2025 URINE CULTU RE vancomycin 1 ug/mL susceptib le Not Available [facility] [address] [place] [address], [address], 01/12/2025 09:34:11 01/09/20 25 01/08/2025 urina lysis panel , auto Unknown Analyte Clean Catch Not Available [facility] With [address], [place], [address], 01/08/2025 14:05:39 01/09/20 25 01/08/2025 urina lysis panel , auto Unknown Analyte Yellow Not Available [facility] With [address], [place], [address], 01/08/2025 14:05:39 01/09/20 25 01/08/2025 urina lysis panel , auto Unknown Analyte Clear Not Available [facility] With [address], [place], [address], 01/08/2025 14:05:39 01/09/20 25 01/08/2025 urina lysis panel , auto Unknown Analyte 1.020 Not Available [facility] With [address], [place], [address], 01/08/2025 14:05:39 01/09/20 25 01/08/2025 urina lysis panel , auto Unknown Analyte 1.003 - 1.030 Not Available [facility] With [address], [place], [address], 01/08/2025 14:05:39 01/09/20 25 01/08/2025 urina lysis panel , auto Unknown Analyte 5.0 Not Available [facility] With [address], [place], [address], 01/08/2025 14:05:39 01/09/20 25 01/08/2025 urina lysis panel , auto Unknown Analyte 5.0 - 8.0 Not Available [facility] With [address], [place], [address], 01/08/2025 14:05:39 01/09/20 25 01/08/2025 urina lysis panel , auto Unknown Analyte 75 Phillip/uL Not Available [facility] With [address], [place], [address], 01/08/2025 14:05:39 01/09/20 25 01/08/2025 urina lysis panel , auto Unknown Analyte Negati ve Not Available [facility] With [address], [place], [address], 01/08/2025 14:05:39 01/09/20 25 01/08/2025 urina lysis panel , auto Unknown Analyte Negati ve Not Available [facility] With [address], [place], [address], 01/08/2025 14:05:39 01/09/20 25 01/08/2025 urina lysis panel , auto Unknown Analyte Negati ve Not Available [facility] With [address] [place], [address], 01/08/2025 14:05:39 01/09/20 25 01/08/2025 urina lysis panel , auto Unknown Analyte Negati ve Not Available [facility] With [address] [place], [address], 01/08/2025 14:05:39 01/09/20 25 01/08/2025 urina lysis panel , auto Unknown Analyte Negati ve Not Available [facility] [address] [place], [address], 01/08/2025 14:05:39 01/09/20 25 01/08/2025 urina lysis panel , auto Unknown Analyte Normal Not Available [facility] [address] [place], [address], 01/08/2025 14:05:39 01/09/20 25 01/08/2025 urina lysis panel , auto Unknown Analyte Normal Not Available [facility] [address] [place], [address], 01/08/2025 14:05:39 01/09/20 25 01/08/2025 urina lysis panel , auto Unknown Analyte Negati ve Not Available [facility] [address] [place], [address], 01/08/2025 14:05:39 01/09/20 25 01/08/2025 urina lysis panel , auto Unknown Analyte Negati ve Not Available [facility] [address] [place], [address], 01/08/2025 14:05:39 01/09/20 25 01/08/2025 urina lysis panel , auto Unknown Analyte 1 mg/dL Not Available [facility] [address], [place], [address], 01/08/2025 14:05:39 01/09/20 25 01/08/2025 urina lysis panel , auto Unknown Analyte Normal Not Available [facility] [address], [place], [address], 01/08/2025 14:05:39 01/09/20 25 01/08/2025 urina lysis panel , auto Unknown Analyte 1 mg/dL Not Available [facility] [address], [place], [address], 01/08/2025 14:05:39 01/09/20 25 01/08/2025 urina lysis panel , auto Unknown Analyte Negati ve Not Available [facility] [address], [place], [address], 01/08/2025 14:05:39 01/09/20 25 01/08/2025 urina lysis panel , auto Unknown Analyte 250 Jayson/uL Not Available [facility] [address], [place], [address], 01/08/2025 14:05:39 01/09/20 25 01/08/2025 urina lysis panel , auto Unknown Analyte Negati ve Not Available [facility] [address], [place], [address], 01/08/2025 14:05:39 11/15/19 25 11/14/2024 MRI, pelvi s, w/wo contr ast [place] [facility] [place] [address] Patien t Name: TONNY Aguilar t : 1939 Patien t Orderi ng Provid er: DINA YANDY Jewell EXAM DATE: 2024 EXAM: MR PELVIS [...] st (1 x 7.5 mL bottle of [facility] [address]9766- 325-01 ) IV. The patien t did [...] Donald Weaver MD on 025 2:19 PM [id number] [facility] Radiology [address], [address], 11/15/2024 10:06:59 01/01/20 25 12/23/2024 MRI, prost ate, w/o contr ast [address] [address] [phone] Patien t Name: TONNY Aguilar t : 1939 [...] g was perfor med utiliz ing the Pursway 3D imagin g softwa re platfo rm. The Pursway system was used to genera te detail [...] prosta te mappin g comple osito using Koelis softwa re. Steven g Radiol ogist: Dr. Donald Weaver Interp reted By: Donald Weaver MD Electr onical ly Signed By: Donald Weaver MD on 025 12:53 PM [email or web address] [facility] Radiology [address], [address], 01/01/2025 09:03:23 01/28/20 25 01/27/2025 PET-C T, skull base to mid-t high scan [address] [address] [facility] Patien t Name: TONNY Aguilar t : 1939 Patien t Orderi [facility] er: KALEE Quiñones EXAM DATE: 2024 EXAM: [...] GFR = 71 5.6 mCi Ga-68 PSMA ([facility] [address]- 100-64 ) was inject ed IV. After [...] 350 (1 x 50 ml bottle of [facility] 0407-1 414-89 ) admini stered 20 [...] Donald Weaver MD on 025 12:[email or web address] Radiology [address], [address], 01/28/2025 13:31:44 01/31/20 25 01/30/2025 NM, bone scan, whole body [address] [id number] Patien t Name: TONNY telles : 1939 Patien t Orderi ng Provid er: KALEE Quiñones EXAM DATE: 2024 EXAM: NM BONE IMAGIN G, WHOLE BODY HISTOR Y: 84-yea r-old male with prosta te cancer . COMPAR ANTONIO: None. TECHNI QUE: Whole body bone scan was perfor med using techne tium 99m MDP 20.3 mCi IV ([facility] [id number] -0040- 1). Two hour delaye d images [...] العراقي MD on 025 4:16 PM INTERFACE [facility] Radiology Nuclear Medicine [address] [place] [address], [address], 01/30/2025 16:21:45 Result Notes Documentation Provider Name and Address Organization Details Recorded Time Mri, Pelvis, W/wo Contrast : [address] [address] Patient Name: TONNY COLVIN Patient : 1940 Patient Ordering Provider: DINA BRAY EXAM DATE: 11/14/2024 EXAM: MR PELVIS ATTN PROSTATE W/WO CONTRAST CLINICAL INFORMATION: Elevated PSA TECHNIQUE: A baseline serum creatinine with eGFR was obtained prior to injection of contrast medium due to the patients risk factors for MONISHA. Calculated eGFR at time of exam was GFR=77 Triplanar T2, axial DWI, ADC map, axial T1 pre- and dynamic postcontrast-enhanced images as well as axial T1 fat-sat imaging was performed after injection of 7.5 mL Gadavist (1 x 7.5 mL bottle of [facility] 73254-465-06) IV. The patient did not require sedation for this exam. COMPARISON: None. FINDINGS: PROSTATE SIZE MEASUREMENTS: Prostate dimensions = 5.6 x 4.6 x 6 cm (T x AP x CC). QUALITY: Good PERIPHERAL ZONE: Overall, peripheral zone is normal in size and background signal characteristics, No suspicious focal lesion is seen. TRANSITION ZONE: Multiple, well delineated encapsulated nodules are seen consistent with BPH. A suspicious focal lesion is seen as decibed below. PI-RADS category = 5/5 located in right transitional zone involving the entire right aspect of the gland. This is creating capsular bulging. This measures at least 3 cm. Seen best in image 7 through 24 of series 8001, 7006, 7007, and image 134 of series 8000. It is positive on T2 WI, ADC, DWI and DCE images. CAPSULE AND NEIGHBORING STRUCTURES: The right prostate capsule is clearly bulging outward and involvement is suspected. Neuro-vascular bundles are normal bilaterally. Seminal vesicles are normal. PELVIC LYMPH NODES: No pelvic lymphadenopathy. PELVIC BONES: No suspicious osseous lesion is seen. IMPRESSION: 1. Changes of BPH 2. BI-RADS 5/5 lesion(s) involving the right side of the gland likely invading and bulging the capsule 3. Seminal vesicles appear intact. 4. No definite extraprostatic finding Interpreted By: Donald Weaver MD BRAY PA-C [address] [place] [address], [address] 11/15/2024 10:06:59 Mri, Prostate, W/o Contrast : [facility] [address] [id number] Patient Name: TONNY COLVIN Patient : 1940 Patient Ordering Provider: DINA BRAY EXAM DATE: 12/23/2024 EXAM: MR 3D PROSTATE Report Summary: The patients' previous multiparametric prostate MRI images were reviewed by a board-certified Radiologist. Following a comprehensive review, prostate mapping was performed utilizing the Pursway 3D imaging software platform. The Pursway system was used to generate detailed 3D reconstruction of the prostate anatomy, including identification of target lesions based on MRI findings. These 3D-mapped images were subsequently integrated with real-time transrectal ultrasound (TRUS) images using MRI/ultrasound fusion technology. The fused imaging facilitated accurate targeting of suspicious regions during the prostate biopsy procedure. Targeted biopsy samples were obtained from MRI-identified lesions in accordance with current clinical protocols. Impression: 3D prostate mapping completed using Pursway software. Mapping Radiologist: Dr. Donald Weaver Interpreted By: Donald Weaver MD BRAY PA-C [address] [place] [address], [phone] 01/01/2025 09:03:23 Pet-ct, Skull Base To Mid-thigh Scan : [address] [address] [facility] Patient Name: TONNY COLVIN Patient : 1940 Patient Ordering Provider: KALEE CHOI EXAM DATE: 01/27/2025 EXAM: PET-CT PSMA SKULL MID THIGH INT ST CLINICAL INFORMATION: Prostate Cancer - Initial PROCEDURE: A baseline serum creatinine with eGFR was obtained prior to injection of contrast medium due to the patients risk factors for MONISHA. Calculated eGFR at time of exam was GFR = 71 5.6 mCi Ga-68 PSMA ([facility] 14970-988-10) was injected IV. After an uptake time of 66 minutes, vertex through midthigh PET imaging was performed. This was followed by a low dose attenuation correction/anatomic localization CT from vertex through the midthigh levels. Urinary tract was opacified with an injection of 50 mL Omnipaque 350 (1 x 50 ml bottle of [facility] 7857-1416-46) administered [address] scan. None was wasted and discarded. The patient did not require sedation for this exam. COMPARISON: MRI dated 11/15/2019 FINDINGS ON PET WITH CT CORRELATION: Normal expected uptake is seen in the lacrimal glands, salivary glands, sinonasal complex, liver, spleen, kidneys, small bowel and urinary bladder. Reference blood pool mean SUV = 0.9. Reference mean SUV of the liver = 5.5. Reference mean SUV of the parotid glands = 10. Prostate cancer specific areas of uptake are described below. PROSTATE/PROSTATIC BED: Prostate gland is intact. Mild psma avidity is present involving both sides of the gland. PSA values as high as 4.1 PELVIC LYMPH NODES: No uptake is seen in any of the pelvic lymph node regions. DISTANT SPREAD: No lymphadenopathy or abnormal uptake is seen in the distant retroperitoneal, mediastinal, or supraclavicular lymph node regions. No suspicious skeletal lesion or area of uabnormal skeletal uptake is seen. No suspicious pulmonary nodule or area of abnormal uptake is seen. ADDITIONAL FINDINGS ON CT: No significant additional finding is seen. COMBINED IMPRESSION: 1. Low-level psma avidity in the prostate compatible with malignancy. No indication of local or distant metastatic disease is noted Interpreted By: Donald Weaver MD Lois [facility] 01/28/2025 13:31:44 Nm, Bone Scan, Whole Body : [facility] [address] [place] [address] Patient Name: TONNY COLVIN Patient : 1940 Patient Ordering Provider: KALEE CHOI EXAM DATE: 01/30/2025 EXAM: NM BONE IMAGING, WHOLE BODY HISTORY: 84-year-old male with prostate cancer. COMPARISON: None. TECHNIQUE: Whole body bone scan was performed using technetium 99m MDP 20.3 mCi IV ([facility] [id number]). Two hour delayed images were obtained. FINDINGS: The calvarium appears normal. There is possible sinus disease. There are moderate to severe degenerative changes in the shoulders and mild degenerative changes at the sternoclavicular joints. There is increased uptake along the soeclktn-tcgrahme-riwlgre aspect of the right eighth rib, but this may represent prior trauma. There are mild degenerative changes throughout the spine. There are mild to moderate degenerative changes in the hips, knees, and feet. The bladder is distended. No metastatic lesion is identified. IMPRESSION: 1. No discrete metastatic lesion is seen. Interpreted By: Matt Can MD Not Available [facility] 01/30/2025 16:21:45 Problems Name Problem SNOMED Code Status Onset Date Resolution Date Notes Provider Name and Address Organization Details Recorded Time Lower urinary tract symptoms due to benign prostatic hypertrophy 2170797322903 1 Active 2024 DINA BRAY PA-C [address] [place], [address], [facility] 14:07:39 Prostate specific antigen above reference range 550755130 Active 2024 DINA BRAY PA-C [address] [place], [address], [facility] 14:07:41 Problem Notes None recorded. Procedures Surgical History Date Name Laterality Status Provider Name and Address Organization Details Recorded Time biopsy of prostate completed [facility] 01/08/2025 14:05:14 Imaging Results None recorded. Procedure [...] Updated DateTime 10/30/2024 172.72 cm 24.3 kg/m2 84326.78 g [facility] 10/30/2024 13:21:40 Date Recorded Body height Body mass index (BMI) Body weight Provider Name and Address Organization Details Last Updated DateTime 11/27/2024 172.72 cm 25.1 kg/m2 87212.74 shikha Byrd [facility] 11/27/2024 15:10:48 Date Recorded Body height Body mass index (BMI) Body weight Provider Name and Address Organization Details Last Updated DateTime 01/08/2025 172.72 cm 24.3 kg/m2 86022.78 shikha Byrd [facility] 01/08/2025 14:04:46 Social History Question Answer Notes LastModified by Organizat ion Details LastModified Time Tobacco Smoking Status Never Smoker Chari Byrd [facility] 10/30/2024 13:22:38 What Was The Date Of [...] SNOMED-CT Code Diagnosis ICD10 Code Diagnosis Note [id number] JESSE SHER [facility] [address] [address] 10/30/2024 12:35:15 10/31/2024 10:16:19 Lower urinary tract symptoms due to benign prostatic hypertrophy 1526308919 9101 N40.1 Prostate s pecific antigen above reference range 579682272 R97.20 Retention of urine 19472 4002 R33.9 [id number] JESSE SHER [facility] [address] [address] 11/27/2024 14:36:28 11/28/2024 10:24:46 Prostate specific antigen above reference range 173498406 R97.20 Lower urin david tract symptoms due to benign prostatic hypertrophy 5615592827 9101 N40.1 Retention of urine 17075 4002 R33.9 Acute urin david tract infection 087417690 N39.0 [id number] KALEE CHOI MD SURGERY SCHEDULE [address] [place] [address] 12/23/2024 13:33:55 12/23/2024 13:35:07 [id number] KALEE CHOI MD [facility] [address] [place] [address],[place] [address] 01/08/2025 13:43:44 01/08/2025 16:02:57 Malignant neoplasm of prostate 996424440 C61 Prostate s pecific antigen above reference range 232761882 R97.20 Acute urin david tract infection 690515224 N39.0 Health Concerns Section Related Observation LastModified by Organization Detai ls LastModified Time None Recorded Concern Status LastModified by Organization Details LastModified Time None Recorded Advance Directives Directive None Recorded Payers Insurance Date Sequence Insurance Name Policy Number Policy Perez Covered Member ID Perez Member ID Guarantor Name 11/18/2024 2 UNSPECIFIED REMIT PAYOR Tonny Colvin 01/30/2025 2 [place] [id number] Tonny Colvin [id number] Tonny Colvin 01/05/2025 1 [place] Tonny Colvin [id number] Tonny Colvin Notes Date Note Type Note Provider Name [...] GERD, and arthritis. DINA BRAY PA-C [address] [place], [address], [facility] 10/30/2024 14:09:30 11/27/2024 text/html Mr. Sina phillip s a pleasant 84-year-old male here today [...] trace hematuria. DINA BRAY PA-C [address] [place], [address], [facility] 12/07/2024 21:01:47 01/08/2025 text/html The patient is a n 84-year-old male presenting with high-risk prostate cancer. High PSA of 15.5 ng/mL led to an MRI-directed biopsy revealing malignant neoplasm with Lori 4+3 on the left and 4+4 on the right prostate. Prostate volume measured 80 cm3. Genomic soda fountain manager score was 0.99, indicating high risk cancer. Treatment requires imaging such as a PSMA scan and bone scan to determine disease extent. Options for management discussed include surgery or radiation with hormonal suppression. - Labs: Elevated PSA level pre-biopsy measured at 15.5 ng/mL. - Tests and Diagnostics: MRI-directed transrectal ultrasound needle biopsy; Lori scores of 4+3 (left) and 4+4 (right); Genomic soda fountain manager score of 0.99. KALEE CHOI MD [address] [place], [address], [facility] 01/11/2025 10:26:03
--- OUTSIDE RECORDS SUMMARY | 2025-01-30 19:20 | XMS_ITS | Continuity of Care Document ---
Author Organization [facility], SURGERY SCHEDULE Address [address] [place] [address] Care Team Providers Care Ssn/Ssbn Assistant Navigator Name Role Phone KIA BAH Referring Provider Assessment Encounter Date Assessment Date Assessment LastModified by Organization Details LastModified Time 12/23/2024 12/23/2024 SURGERY DATE: 12/23/2024 PREOPERATIVE DIAGNOSIS: Elevated PSA POSTOPERATIVE DIAGNOSIS: Elevated PSA PROCEDURE: 1. Transrectal ultrasound prostate, 2. Ultrasound guidance for needle injection of local analgesia, 3. MRI directed transrectal ultrasound fusion guided needle biopsy of prostate SURGEON: Kalee Saleh MD ANESTHESIA: MAC ESTIMATED BLOOD LOSS: <2 [...] home with instructions for outpatient follow up. [email or web address] Not available 01/01/2025 11:25:28 Plan of Treatment Reminders Order Date Submit Date Provider Last Modified By Organization Details Last Modified Time Details Appointments NUCLEAR MED STUDY 2024 02:00P M NUCLEAR_M EDICINE Not available Not available Not available RECHECK 2024 01:00P M KALEE SALEH MD Not available Not available Not available Lab None recorded . Referral None recorded . Procedures None recorded . Surgeries None recorded . Imaging None recorded . Medication Orders None recorded . Patient TargetsNo targets recorded. Patient InstructionsNo instructions recorded. Reason for Referral None Reported. Results Created Date Observation Date Name Description Value Unit Range Abnormal Flag Note LastModifiedBy Organization Detail LastModifiedTime 01/01/20 25 12/23/2024 MRI, prost ate, w/o contr ast [place] [facility] [address] [place] [address] [place] [address] Patialla telles Name: TONNY telles : 1939 Lauren telles Orderi [facility] er: DINA Jewell EXAM DATE: 2024 EXAM: MR 3D PROSTA TE Report Summar y: The patien ts' previo us multip aramet kobe prosta te MRI images were review ed by a board- certif ied Radiol ogist. Follow ing a compre hensiv e review , prosta te mappin g was perfor med utiliz ing the [employer] 3D imagin g softwa re platfo rm. The [employer] system was used to genera te detail [...] ed lesion s in accord ance with meenuen t clinic al protoc ols. Impres eusebia: 3D prosta te mappin g comple osito using [employer] softwa re. Mappin g Radiol ogist: Dr. Donald Weaver Interp reted By: Donald Weaver MD Electr onical ly Signed By: Donald Weaver MD on 025 12:53 PM [email or web address] [facility] Radiology [address], [address], 01/01/2025 09:03:23 01/28/20 25 01/27/2025 PET-C T, skull base to mid-t high scan [address] [address] [facility] Patien t Name: TONNY Aguilar t : 1939 Patien t Orderi ng [place] er: KALEE Quiñones EXAM DATE: 2024 EXAM: [...] GFR = 71 5.6 mCi Ga-68 PSMA ([facility] [address]- 100-64 ) was inject ed IV. After [...] 350 (1 x 50 ml bottle of [facility] 0407-1 414-89 ) admini stered 20 [...] Donald Weaver MD on 025 12:[address] Rad[address], [address], 01/28/2025 13:31:44 01/31/2001/30/2025 NM, bone scan, whole body [address] [address] Patien t Name: TONNY Yasir NUÑEZAR RUPESHNAVDEEP Aguilar t : 1939 Patien t Orderi ng Provid er: KALEE SPARKSJami Quiñones EXAM DATE: 2024 EXAM: NM BONE IMAGIN G, WHOLE BODY HISTOR Y: 84-yea r-old male with prosta te cancer . COMPAR ANTONIO: None. TECHNI QUE: Whole body bone scan was perfor med using techne tium 99m MDP 20.3 mCi IV ([facility] [id number] -0040- 1). Two hour delaye d images [...] العراقي MD on 025 4:16 PM INTERFACE [facility] Radiology Nuclear Medicine [address] [place] [address], [address], 01/30/2025 16:21:45 Result Notes Documentation Provider Name and Address Organization Details Recorded Time Mri, Prostate, W/o Contrast : [address] [address] Patient Name: TONNY ANDINO Patient : 1940 Patient Ordering Provider: DINA BRAY EXAM DATE: 12/23/2024 EXAM: MR 3D PROSTATE Report Summary: The patients' previous multiparametric prostate MRI images were reviewed by a board-certified Radiologist. Following a comprehensive review, prostate mapping was performed utilizing the [employer] 3D imaging software platform. The [employer] system was used to generate detailed 3D [...] protocols. Impression: 3D prostate mapping completed using [employer] software. Mapping Radiologist: Dr. Donald Weaver Interpreted By: Donald Weaver MD BRAY PA-C [address] [place], [address], [facility] 01/01/2025 09:03:23 Problems Name Problem SNOMED Code Status Onset Date Resolution Date Notes Provider Name and Address Organization Details Recorded Time Lower urinary tract symptoms due to benign prostatic hypertrophy 1286458994629 1 Active 2024 DINA BRAY PA-C [address] [place], [address], [facility] 14:07:39 Prostate specific antigen above reference range 991379887 Active 2024 DINA BRAY PA-C [address] [place], [address], [facility] 14:07:41 Problem Notes None recorded. Procedures Surgical History Date Name Laterality Status Provider Name and Address Organization Details Recorded Time biopsy of prostate completed Rubyednamecca Carson [facility] 01/08/2025 14:05:14 Imaging Results None recorded. [...] Available Not Available Not Avai lable Vitals None Recorded Social History Question Answer Notes LastModified by Organizat ion Details LastModified Time Tobacco Smoking Status Never Smoker Chari Wolft [facility] 10/30/2024 13:22:38 What Was The Date Of [...] SNOMED-CT Code Diagnosis ICD10 Code Diagnosis Note [id number] DINA BRAY PA-C [facility] [address] [facility] [address] 11/27/2024 14:36:28 11/28/2024 10:24:46 Prostate specific antigen above reference range 255015958 R97.20 Lower urin david tract symptoms due to benign prostatic hypertrophy 1902205719 9101 N40.1 Retention of urine 99429 4002 R33.9 Acute urin david tract infection 546538508 N39.0 [id number] KALEE SALEH MD SURGERY SCHEDULE [address] [place] [address] 12/23/2024 13:33:55 12/23/2024 13:35:07 Health Concerns Section Related Observation LastModified by Organization Detai ls LastModified Time None Recorded Concern Status LastModified by Organization Details LastModified Time None Recorded Payers Encounter Date Sequence Insurance Name Policy Number Policy Perez Covered Member ID Perez Member ID Guarantor Name 12/23/2024 1 [place] Tonny Andino [id number] Tonny Andino 12/23/2024 2 [place] [id number] Tonny Andino [id number] Tonny Andino
[2025-01-30 19:28] LABS: Microscopic, Urine URINE MICROSCOPIC (MICROSCOPIC)
[2025-01-30 19:32] LABS: Appearance,Urine CLEAR (Clear); Bilirubin,Urine Negative (Negative); Blood, Urine TRACE-I (Negative); Color,Urine YELLOW (Yellow); Glucose,Urine (UA) Negative (Negative); Ketones,Urine Negative (Negative); Leukocyte Esterase,Urine Negative (Negative); Nitrate,Urine Negative (Negative); PH,Urine 6.5 (5.0-8.5); Protein,Urine Negative (Negative); Urobilinogen,Urine 0.2 EU/dl (0.2)
--- NOTE | 2025-01-30 19:37 | ED_ITS ---
Discharge Plan Disposition Patient Disposition: Home, Self-Care Prescriptions Prescriptions: No Action lisinopril 40 mg tablet 40 mg PO DAILY tamsulosin [Flomax] 0.4 mg capsule 0.4 mg PO DAILY 90 Days Qty: 90 3RF tamsulosin [Flomax] 0.4 mg capsule 0.4 mg PO DAILY Qty: 30 3RF Referrals Follow up/Referrals: Toro Causey MD [Primary Care Provider, Internal Medicine] - See instructions Activity Restrictions/Add. Instructions Additional Instructions/Restrictions: Follow-up with your urologist next week as discussed. No evidence of urinary tract infection today. Any other concerning signs or symptoms, return to the emergency department for further evaluation Clinical Impressions Clinical Impression: Acute on chronic urinary retention Instructions Patient Instructions: DI for Urinary Tract Infection (UTI), DI for Urinary Tract Infection in Children Print Language Print Language: Tongan Discharge ED Provider: Chato Obando General Adult HPI General Chief complaint: Urogenital-Male Stated complaint: Unable to pee Time Seen by Provider: 01/30/25 19:06 Mode of Arrival: Ambulatory Source of Information: Patient Description of Symptoms (Recalled from ER Triage Doc. by RN): patient states he hasn't peed since 1400 today. patient has had this problem several times before. Sees a urologist in [place]. History of Present Illness HPI narrative: Please note that above description of symptoms, in this electronic medical record under categorization of recalled from ER triage doctor by RN are reflective of an initial nursing assessment, however, is not reflective of my full history and physical exam that was personally taken and clarified. Consequentially, this preceding description of symptoms, which may include the patient's categorized chief complaint in the EMR, do not reflect my personal clinical impression, and the ultimate description of history of present illness and patient stated complaints should be deferred to this section of the note. Unless stated otherwise or congruent with this section of the note, additional signs, symptoms, or incongruence should be interpreted as inaccurate with my clinical impression. Related Data Home Medications ?Medication ?Instructions ?Recorded ?Confirmed lisinopril 40 mg tablet 40 mg PO DAILY 08/08/2311/27 Previous Rx's ?Medication ?Instructions ?Recorded tamsulosin 0.4 mg capsule (Flomax) 0.4 mg PO DAILY #30 caps 09/03/23 tamsulosin 0.4 mg capsule (Flomax) 0.4 mg PO DAILY 90 days #90 caps 10/08/23 Allergies Allergy/AdvReac Type Severity Reaction Status Date / Time No Known Allergies Allergy Verified 10/08/23 09:55 [facility] Disclaimer: The information contained in this section may have been updated after the patient was seen, as this information can be updated by other users. Medical History Osteoarthritis Surgical History History of hernia repair History of local excision of skin lesion Family History Other Family history of cancer Social History Smoking Status: Never smoker second hand exposure: No alcohol intake: never counseling provided: provider counseling substance use type: denies use current occupational status: retired Travel in the last 8 weeks?: None household members: significant other housing: house current occupational exposures/hazards: No caffeine: Yes Have you lived/traveled outside US in past 30 days?: No Contact w/someone who lives/traveled outside US past 30 days?: No Exposure to someone with infectious disease in past 14 days?: No Do you have a fever (greater than 100.4 F or 38 C)?: No Have you tested positive for COVID-19?: No Exposed to someone with COVID-19 in past 14 days?: No Do you have a sore throat?: No Do you have a cough?: No Do you have any weakness?: No Do you have any diarrhea?: No Are you experiencing any unusual bleeding?: No Do you have any muscle aches/pain?: No Do you have any abdominal pain?: No Are you experiencing loss of taste or smell?: No Other Medical History Have you received the Flu Vaccine for this season: Yes Have you received the Pneumonia Vaccine: Yes ROS Obtained: Yes All systems reviewed & no additional complaints except as documented Physical Exam General General appearance: alert Head Head exam: atraumatic and normocephalic Eye Eye exam: Present normal appearance, PERRL and EOMI Neck Neck exam: Present normal inspection, full ROM and trachea midline Respiratory Respiratory exam: Absent respiratory distress, wheezes, stridor, accessory muscle use or prolonged expiratory phase Cardiovascular Cardiovascular exam: Present other (Pulses equal symmetric in upper and lower extremities) Abdominal Exam Abdominal exam: Present soft; Absent distention, tenderness or pulsatile mass Extremities Exam Extremities exam: Absent edema Neurological Exam Neurological exam: Present alert, oriented X3 and CN II-XII intact; Absent motor sensory deficit Skin Skin exam: Present warm and dry; Absent diaphoresis or erythema Medical Decision Making Medical Records Medical records reviewed: Yes I reviewed the patient's medical records. Screening: Per USPSTF and CDC recommendations, given the prevalence of disease in our region, it is our hospital?s policy to screen for HIV and viral Hepatitis for all patients aged 18 and over and those with ongoing risk factors. Александр Inquiry Pt receiving controlled substance: No Александр was queried for this patient: No Vital Signs: 01/30/25 19:12 01/30/25 19:14 Temperature 98.7 F Temperature Source Oral Pulse Rate 72 Pulse Rate [Left] 63 Respiratory Rate 18 Blood Pressure 128/105 H Blood Pressure [Right Arm] 128/105 H Blood Pressure Mean [Right Arm] 112 Blood Pressure Source [Right Arm] Automatic Cuff Blood Pressure Position [Right Arm] Sitting 02 Sat by Pulse Oximetry 96 95 Oxygen Delivery Method Room Air Room Air Lab Data Lab Results 01/30/25 19:20: Urine Color Yellow, Urine Appearance Clear, Urine pH 6.5, Ur Specific [place] 1.010, Urine Protein Negative, Urine Glucose (UA) Negative, Urine Ketones Negative, Urine Blood Trace-i, Urine Nitrate Negative, Urine Bilirubin Negative, Urine Urobilinogen 0.2, Ur Leukocyte Esterase Negative Orders (Tests/Meds): ORDERS Category Date Time Status UA [Urinalysis and Microscopic] Stat Lab 01/30/25 19:20 Results Medical Decision Narrative: 84-year-old male with history of prostate cancer and urinary retention presenting with urinary retention. States that he was urinating appropriately, however around 2 PM about 5 hours prior to this visit, last time he was able to void. Having suprapubic fullness, no fevers, chills, flank pain, nausea, vomiting, or any other concerns. Came in for further evaluation. Has a follow- up with his urologist on . Pate catheter was placed. Urine sent. On independent interpretation, no evidence of infection. Appropriate for outpatient management with urology. Because patient at baseline without signs or symptoms of clinical decompensation, deemed appropriate for discharge. Results were relayed to patient who voiced understanding and were agreeable to outpatient management and follow up. I discussed my clinical impression with patient and answered all questions. At this time, the evidence for any other entities in the differential is insufficient to warrant any further testing or ED observation. This was explained as well. Advisory was given that persistent or worsening symptoms require further evaluation. I confirmed the understanding of this discussion. Lead Engineer disclaimer Much of this encounter note is an electronic nail professional spoken language to printed text. Electronic nail professional of the spoken language may permit errors. Although I have reviewed the note, some errors may still exist. Critical Care Critical Care Time Critical Care Time: No
[2025-01-30 19:46] VITALS: BP 153/73; PULSE 87; RESP 18; TEMP 36.6; O2SAT 100
--- NOTE | 2025-01-30 19:47 | PC.NURSE ---
patient was discharged with oneill catheter and a leg bag. Patient was provided proper education for how to care for the oneill catheter and leg bag and has an appointment to follow up with urology.
[2025-01-30 19:50] LABS: Squamous Epithelial Cell,Urine Occasional #/hpf (0-5); WBC,Urine Occasional #/hpf (0-3)
[2025-01-30 19:51] LABS: Bacteria,Urine Trace /lpf
== END 2025-01-30 19:48 | disposition home or self-care (01) ==
PROVIDERS: Emergency Provider Emergency Medicine; PCP Internal Medicine Adolescent Medicine
DX: R33.9 Retention of urine, unspecified (principal); R73.9 Hyperglycemia, unspecified
CPT/HCPCS: 51702; 81001; 99283

== ENCOUNTER 2025-03-03 15:34 | Outpatient (CLI) | payer MEDICARE, BC, SELFPAY ==
--- OUTSIDE RECORDS SUMMARY | 2025-03-03 15:38 | XMS_ITS | Continuity of Care Document ---
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 - Evaluation continues with PSMA and bone scans to guide treatment choice between surgery or radiation with hormonal therapy. [email or web address] Not available 01/11/2025 10:25:41 Plan of Treatment Reminders Order Date Submit Date Provider Last Modified By Organization Details Last Modified Time Details Appointments [facility] GOVIND OUTPT 2024 07:30A M KALEE SALEH MD Not available Not available Not available Lab urinalysi s panel, auto 2024 025 [email or web address] 4 [facility], [address] [place] [address] , [address], [place], [address], 01/12/2025 10:57:17 culture, urine 2024 025 [email or web address] 4 [facility], [address] [place] [address], [phone], 01/12/2025 10:57:17 Referral None recorded. Procedures None recorded. Surgeries None recorded. Imaging PET-CT, skull base to mid-thigh scan 2024 025 [facility], [address] [place] [address] [place], [phone], 01/27/2025 12:59:10 NM, bone scan, whole body 2024 025 [facility], [address] [place] [address], [phone], 01/30/2025 16:21:45 Medication Orders None recorded. Patient TargetsNo targets recorded. Patient Instructions Encounter Date Encounter Id Patient Instructions Last Modified By Organization Details Last Modified Time 01/08/2025 [id number] - Wait for imaging appointments for PSMA [...] Abnormal Flag Note LastModifiedBy Organization Detail LastModifiedTime 12/24/1912/23/2024 SURGI RUBEN surgical SEE BELOW abnormal Surgi [...] casse ttes label ed A1-A2 . B) Patie nt's name and date of verif ied. Recei jose in forma cherelle label ed with the patie nt's name and desig nated righ t prost ate are nine thin cores of sandhu-w flory tissu e measu ring (2) 0.2, (2) 0.3, 0.4, 0.5, 0.8, 1.1 and 1.4 cm in lengt h. Entir raymundo submi tted in three casse ttes label ed B1-B3 . C) Patie nt's name and date of verif ied. Recei jose in forma cherelle label ed with the patie nt's name and desig nated righ t trans ition zone are five thin cores of sandhu-w flory tissu e measu ring 0.5, 0.9, 1.7, and (2) 1.8 cm in lengt h. Entir raymundo submi tted in two casse ttes label ed C1-C2 . SB 12/24 [...] as inves tigat ional or for resea rch. This labor atory is regul ated under the [employer] Labor atory Impro vemen t Amend ments of 1987 (CLIA ' 88), as quali fied to perfo rm high compl exity testi ng. DESTINY Quiñones CHARLENE SHAW MD Matilde d Out Date: 12/25 16:52 Page 1 of 1 Not Available [facility] [address] [place] [address], [address], 12/25/2024 16:52:46 01/09/20 25 01/08/2025 URINE CULTU RE staphylococc us epidermidis Organi sm: Staphy lococc us epider midis Not Available [facility] [address] [place] [address], [address], 01/12/2025 09:34:11 01/09/20 25 01/12/2025 URINE CULTU RE urine culture abnormal ISOLA TE #1 COLON Y COUNT : 10,00 0 - 100,0 00 CFU/M L Proba ble Staph yloco ccus sp.; ID and sensi tivit y in progr ess. See [place] te Resul t(s) Below Staph yloco ccus epide rmidi s Not Available [facility] [address] [place] [address], [address], 01/12/2025 09:34:11 01/09/20 25 01/12/2025 URINE CULTU RE amox/K clav'ate(C) <=4/2 ug/mL susceptib le Not Available [facility] [address] [place] [address], [address], 01/12/2025 09:34:11 01/09/20 25 01/12/2025 URINE CULTU RE amp/sulbacta m(C) <=8/4 ug/mL susceptib le Not Available [facility] [address] [place] [address], [address], 01/12/2025 09:34:11 01/09/20 25 01/12/2025 URINE CULTU RE cefazolin <=8 ug/mL susceptib le Not Available [facility] [address] [place] [address], [address], 01/12/2025 09:34:11 01/09/20 25 01/12/2025 URINE CULTU RE ciprofloxaci n >2 ug/mL resistant Not Available [facility] [address] [place] [address], [address], 01/12/2025 09:34:11 01/09/20 25 01/12/2025 URINE CULTU RE gentamicin <=4 ug/mL susceptib le Not Available [facility] [address] [place] [address], [address], 01/12/2025 09:34:11 01/09/20 25 01/12/2025 URINE CULTU RE levofloxacin >4 ug/mL resistant Not Available [facility] [address] [place] [address], [address], 01/12/2025 09:34:11 01/09/20 25 01/12/2025 URINE CULTU RE nitrofuranto in <=32 ug/mL susceptib le Not Available [facility] [address] [place] [address] [place], [address], 01/12/2025 09:34:11 01/09/2001/12/2025 URINE CULTU RE oxacillin <=0.25 ug/mL susceptib le Not Available [facility] [address] [place] [address], [address], 01/12/2025 09:34:11 01/09/2001/12/2025 URINE CULTU RE rifampin <=1 ug/mL susceptib le Not Available [facility] [address] [place] [address], [address], 01/12/2025 09:34:11 01/09/2001/12/2025 URINE CULTU RE tetracycline <=4 ug/mL susceptib le Not Available [facility] [address] [place] [address], [address], 01/12/2025 09:34:11 01/09/2001/12/2025 URINE CULTU RE trimeth/sulf a 1/19 ug/mL susceptib le Not Available [facility] [address] [place] [address], [address], 01/12/2025 09:34:11 01/09/2001/12/2025 URINE CULTU RE vancomycin 1 ug/mL susceptib le Not Available [facility] [address] [place] [address], [address], 01/12/2025 09:34:11 01/09/2001/08/2025 urina lysis panel , auto Unknown Analyte Clean Catch Not Available [facility] [address], [place], [address], 01/08/2025 14:05:39 01/09/20 25 01/08/2025 urina lysis panel , auto Unknown Analyte Yellow Not Available [facility] [address], [place], [address], 01/08/2025 14:05:39 01/09/20 25 01/08/2025 urina lysis panel , auto Unknown Analyte Clear Not Available [facility] [address], [place], [address], 01/08/2025 14:05:39 01/09/20 25 01/08/2025 urina lysis panel , auto Unknown Analyte 1.020 Not Available [facility] [address], [place], [address], 01/08/2025 14:05:39 01/09/20 25 01/08/2025 urina lysis panel , auto Unknown Analyte 1.003 - 1.030 Not Available [facility] [address], [place], [address], 01/08/2025 14:05:39 01/09/20 25 01/08/2025 urina lysis panel , auto Unknown Analyte 5.0 Not Available [facility] [address], [place], [address], 01/08/2025 14:05:39 01/09/20 25 01/08/2025 urina lysis panel , auto Unknown Analyte 5.0 - 8.0 Not Available [facility] [address], [place], [address], 01/08/2025 14:05:39 01/09/20 25 01/08/2025 urina lysis panel , auto Unknown Analyte 75 Phillip/uL Not Available [facility] [address], [place], [address], 01/08/2025 14:05:39 01/09/20 25 01/08/2025 urina lysis panel , auto Unknown Analyte Negati ve Not Available [facility] [address], [place], [address], 01/08/2025 14:05:39 01/09/20 25 01/08/2025 urina lysis panel , auto Unknown Analyte Negati ve Not Available [facility] [address], [place], [address], 01/08/2025 14:05:39 01/09/20 25 01/08/2025 urina lysis panel , auto Unknown Analyte Negati ve Not Available [facility] [address], [place], [address], 01/08/2025 14:05:39 01/09/20 25 01/08/2025 urina lysis panel , auto Unknown Analyte Negati ve Not Available [facility] [address], [place], [address], 01/08/2025 14:05:39 01/09/20 25 01/08/2025 urina lysis panel , auto Unknown Analyte Negati ve Not Available [facility] [address], [place], [address], 01/08/2025 14:05:39 01/09/20 25 01/08/2025 urina lysis panel , auto Unknown Analyte Normal Not Available [facility] [address], [place], [address], 01/08/2025 14:05:39 01/09/20 25 01/08/2025 urina lysis panel , auto Unknown Analyte Normal Not Available [facility] [address], [place], [address], 01/08/2025 14:05:39 01/09/20 25 01/08/2025 urina lysis panel , auto Unknown Analyte Negati ve Not Available [facility] [address], [place], [address], 01/08/2025 14:05:39 01/09/20 25 01/08/2025 urina lysis panel , auto Unknown Analyte Negati ve Not Available [facility] [address], [place], [address], 01/08/2025 14:05:39 01/09/20 25 01/08/2025 urina lysis panel , auto Unknown Analyte 1 mg/dL Not Available [facility] [address], [place], [address], 01/08/2025 14:05:39 01/09/20 25 01/08/2025 urina lysis panel , auto Unknown Analyte Normal Not Available [facility] [address], [place], [address], 01/08/2025 14:05:39 01/09/20 25 01/08/2025 urina lysis panel , auto Unknown Analyte 1 mg/dL Not Available [facility] [address], [place], [address], 01/08/2025 14:05:39 01/09/20 25 01/08/2025 urina lysis panel , auto Unknown Analyte Negati ve Not Available [facility] [address], [place], [address], 01/08/2025 14:05:39 01/09/20 25 01/08/2025 urina lysis panel , auto Unknown Analyte 250 Jayson/uL Not Available [facility] [address], [place], [address], 01/08/2025 14:05:39 01/09/20 25 01/08/2025 urina lysis panel , auto Unknown Analyte Negati ve Not Available [facility] [address], [place], [address], 01/08/2025 14:05:39 01/01/20 25 12/23/2024 MRI, prost ate, w[facility]o [facility] [address] [place] [address] Patien t Name: TONNY THOMAS Lauren t : 1939 Patialla t Orderi ng Provid er: DINA Jewell EXAM DATE: 2024 EXAM: MR 3D PROSTA TE Report Summar y: The patien ts' previo us multip aramet kobe prosta te MRI images were review ed by a board- certif ied Radiol ogist. Follow ing a compre hensiv e review , prosta te mappin g was perfor med utiliz ing the [employer] 3D imagin g softwa re platfo rm. The [employer] system was used to genera te [...] prosta te mappin g comple osito using [employer] softwa re. Mappin g Radiol ogist: Dr. Donald Weaver Interp reted By: Donald Weaver MD Electr onical ly Signed By: Donald Weavre MD on 025 12:[address] [facility] [address] [place] [address], [address], 01/01/2025 09:03:23 01/28/20 25 01/27/2025 PET-C T, skull base to mid-t high scan [address] [address] [facility] Patien t Name: TONNY Aguilar t : 1939 Patialla t Orderi ng Provid er: KALEE Quiñones [...] = 71 5.6 mCi Ga-68 PSMA ([facility] [address]01- 100-64 ) was inject ed IV. After [...] (1 x 50 ml bottle of [facility] 0407-1 414-89 ) admini stered 20 minute [...] Donald Weaver MD on 025 12:54 PM [email or web address] [facility] [address] [place] [address], [address], 01/28/2025 13:31:44 01/31/2001/30/2025 NM, bone scan, whole body [address] [address] [phone] Patialla t Name: TONNY telles : 1939 Patialla t Orderi ng Provid er: KALEE Quiñones EXAM DATE: 2024 EXAM: NM BONE IMAGIN G, WHOLE BODY HISTOR Y: 84-yea r-old male with prosta te cancer . COMPAR ANTONIO: None. TECHNI QUE: Whole body bone scan was perfor med using techne tium 99m MDP 20.3 mCi IV ([facility] [id number] -0040- 1). Two hour delaye d images [...] Lorraine العراقي MD on 025 4:16 PM [email or web address] [facility] [address] [place], [address], 02/05/2025 12:27:21 Result Notes None recorded. Problems Name Problem SNOMED Code Status Onset Date Resolution Date Notes Provider Name and Address Organization Details Recorded Time Lower urinary tract symptoms due to benign prostatic hypertrophy 0812693811282 1 Active 2024 DINA BRAY PA-C [address] [place] [address], [address], [facility] 14:07:39 Prostate specific antigen above reference range 704644875 Active 2024 DINA BRAY PA-C [address] [place] [address], [address], [facility] 14:07:41 Problem Notes None recorded. Procedures Surgical History Date Name Laterality Status Provider Name and Address Organization Details Recorded Time biopsy of prostate completed Chari Byrd [facility] 01/08/2025 14:05:14 Imaging Results None [...] Not Available Not Available Not Avai lable nitrofurant oin monohydrate /macrocryst als 100 mg capsule Take by oral route for 10 days. 2024 active Not Available Not Available Not Avai lable Vitals Date Recorded Body height Body mass index (BMI) Body weight Provider Name and Address Organization Details Last Updated DateTime 01/08/2025 172.72 cm 24.3 kg/m2 43210.78 g Chari Byrd [facility] 01/08/2025 14:04:46 Social History Question Answer Notes LastModified by Organizat ion Details LastModified Time Tobacco Smoking Status Never Smoker Chari Byrd [facility] 10/30/2024 13:22:38 What Was The Date Of Your Most Recent Tobacco Screening? 02/05/2025 [email or web address] Information not available 02/05/2025 Sex: Unknown Functional Status Question Answer Note LastModified by Organization D etails LastModified Time What is your level of alcohol consumption? None [email or web address] Information not available 10/30/2024 Mental Status None [...] SNOMED-CT Code Diagnosis ICD10 Code Diagnosis Note [id number] KALEE SALEH MD SURGERY SCHEDULE [address] [place] [address] 12/23/2024 13:33:55 12/23/2024 13:35:07 [id number] KALEE SALEH MD [facility] [address] [place] [address],[address] [place] [address] 01/08/2025 13:43:44 01/08/2025 16:02:57 Malignant neoplasm of prostate 155800493 C61 Prostate s pecific antigen above reference range 526582615 R97.20 Acute urin david tract infection 861997834 N39.0 Health Concerns Section Related Observation LastModified by Organization Detai ls LastModified Time None Recorded Concern Status LastModified by Organization Details LastModified Time None Recorded Payers Encounter Date Sequence Insurance Name Policy Number Policy Perez Covered Member ID Perez Member ID Guarantor Name 01/08/2025 1 [place] Tonny Andino [id number] Tonny Andino 01/08/2025 2 [place] [id number] Tonny Andino [id number] Tonny Andino
--- OUTSIDE RECORDS SUMMARY | 2025-03-03 15:39 | XMS_ITS | Referral Summary ---
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 Name Role Phone Unavailable Primary Care Provider Unavailabl e Social History Tobacco Use Types Packs/Day Years Used Date Smoking Tobacco: Never Assessed Sex and Gender Information Value Date Recorded Sex Assigned at Not on file Legal Sex Male 10:12 AM CDT Gender Identity Not on file Sexual Orientation Not on file Plan of Treatment Upcoming Encounters Date Type Department Care Team (Late st Contact Info) Description 03/23/2025 7:30 AM EDT Hospital Encounter [facility] Operating [address] [place] [address] Pablo Choi MD [address] [place] [address] 03/23/2025 7:30 AM EDT - 03/23/2025 11:19 AM EDT Surgery [facility] Operating [address] [place] [address] Pablo Choi MD [address] [place] [address] (ROBOTIC PROSTATECTOMY WITH LYMPH NODE DISSECTION) Scheduled Procedures Name Priority Associated Diagnoses Date/Ti me ROBOTIC LAPAROSCOPY,PROSTATECTOMY W/ PELVIC LYMPH NODE DISSECTION Malignant neoplasm of prostate (HCC) 03/23/2025 7:30 AM EDT Insurance MEDICARE PART A B
--- OUTSIDE RECORDS SUMMARY | 2025-03-03 15:39 | XMS_ITS | Data Portability ---
Author Organization NICOLE THANG Ren GIRARD CLOSED Address [address] [facility] [address] [place] [address] Care Team Providers Care Pharmacy District Manager Name Role Phone KIA BAH Referring Provider [phone] Assessment Encounter Date Assessment Date Assessment LastModified [...] new or worsening symptoms, medication intolerance, etc. [email or web address] Not available 10/30/2024 14:09:16 11/27/2024 11/27/2024 Assessment: [...] follow-up after fusion biopsy, sooner if needed. [email or web address] Not available 12/07/2024 21:00:57 12/23/2024 12/23/2024 SURGERY [...] home with instructions for outpatient follow up. [email or web address] Not available 01/01/2025 11:25:28 01/08/2025 01/08/2025 - 84-year-old ma le with history of elevated PSA presenting with high-risk prostate cancer. -High risk adenocarcinoma confirmed with [place] 4+4 and genomic score. - Evaluation continues with PSMA and bone scans to guide treatment choice between surgery or radiation with hormonal therapy. [email or web address] Not available 01/11/2025 10:25:41 02/05/2025 02/05/2025 - 84-year-old nikki huston with prostate adenocarcinoma for follow-up. - Pre-biopsy PSA 15.5, MRI fusion biopsy [place] 4+3 and 4+4 adenocarcinoma, 80 cm3 volume. - Bone scan and PSMA show no metastasis, indicating localized cancer. - Treatment options: surgery, radiation, hormone therapy. - Patient prefers prostatectomy, aware of urinary incontinence risk. - No prior abdominal surgeries; laparoscopic prostatectomy planned. - Urinary retention post-discharge required catheterization. - No usual urination issues outside post-discharge incidents. [email or web address] Not available 02/05/2025 13:45:28 Plan of Treatment Reminders Order Date Submit Date Provider Last Modified By Organization Details Last Modified Time Details Appointments [facility] OUTPT 2024 07:30A Alba CHOI MD Not available Not available Not available Lab urinalysi s panel, auto 2024 025 [email or web address] 4 [facility], [address], [place], [address], 01/12/2025 10:57:17 culture, urine 2024 [email or web address] [place] [address] Laboratory, [address] [place] [address], [address], 01/12/2025 10:57:17 urinalysi s panel, auto 2024 025 [email or web address] 4 [facility], [address], [address], [place], [address], 11/27/2024 15:35:25 culture, urine 2024 025 [facility], [address] [place] [address], [address], 11/29/2024 11:12:27 urinalysi s panel, auto 2024 025 [email or web address] 4 [facility], [address], [place], [address], 10/30/2024 14:01:03 Referral None recorded. Procedures None recorded. Surgeries prostatec antonio with bilateral pelvic lymph node dissectio n, robot assisted laparosco pic (SURG) 2024 025 [id number] [facility](Scheduli ng), [address] [facility] , [place], [address], 02/20/2025 08:51:42 prostate needle biopsy (SURG) 2024 025 [facility], [address] [place] [address], [facility] [address], [place], [address], 01/20/2025 08:38:58 Imaging PET-CT, skull base to mid-thigh scan 2024 025 [facility], [address] [place], [address], 01/27/2025 12:59:10 NM, bone scan, whole body 2024 025 [facility], [address] [place], [address], 01/30/2025 16:21:45 MRI, pelvis, w/wo contrast 2024 025 [facility], [address] [place], [address], 11/14/2024 14:24:07 Medication Orders tamsulosi n 0.4 mg capsule 2024 025 [facility], [address], [address], 10/30/2024 14:02:40 tadalafil 5 mg tablet 2024 025 [facility], [address], [address], 10/30/2024 14:02:09 Patient TargetsNo targets recorded. Patient Instructions Encounter Date Encounter Id Patient Instructions Last Modified By Organization Details Last Modified Time 10/30/2024 [id number] learning about healthy weight ken Not available 10/30/2024 14:01:03 01/08/2025 [id number] - Wait for imaging appointments for PSMA and bone scans. - Consider treatment options: Surgery or Radiation and Hormonal Therapy. - Follow further evaluation. - Contact office for scheduling updates. - Keep updated with test scheduling and arrive on time. [email or web address] Not available 01/08/2025 14:08:44 02/05/2025 [id number] - Follow up with scheduled prostatectomy. - Be aware of potential urinary incontinence post-surgery. - Return to ER if unable to urinate post-catheter removal. [email or web address] Not available 02/05/2025 13:45:29 Reason for Referral None Reported. Results Created Date Observation Date Name Description Value Unit Range Abnormal Flag Note LastModifiedBy Organization Detail LastModifiedTime 10/31/1910/30/2024 urina lysis panel , auto Unknown Analyte Clean Catch Not Available [facility] [address], [place], [address], 10/30/2024 13:25:08 10/31/19 25 10/30/2024 urina lysis panel , auto Unknown Analyte Yellow Not Available [facility] [address], [place], [address], 10/30/2024 13:25:08 10/31/1910/30/2024 urina lysis panel , auto Unknown Analyte Clear Not Available [facility] [address], [place], [address], 10/30/2024 13:25:08 10/31/19 25 10/30/2024 urina lysis panel , auto Unknown Analyte 1.015 Not Available [facility] [address], [place], [address], 10/30/2024 13:25:08 10/31/19 25 10/30/2024 urina lysis panel , auto Unknown Analyte 1.003 - 1.030 Not Available [facility] [address], [place], [address], 10/30/2024 13:25:08 10/31/19 25 10/30/2024 urina lysis panel , auto Unknown Analyte 6.5 Not Available [facility] [address], [place], [address], 10/30/2024 13:25:08 10/31/19 25 10/30/2024 urina lysis panel , auto Unknown Analyte 5.0 - 8.0 Not Available [facility] [address], [place], [address], 10/30/2024 13:25:08 10/31/19 25 10/30/2024 urina lysis panel , auto Unknown Analyte Negati ve Not Available [facility] [address], [place], [address], 10/30/2024 13:25:08 10/31/19 25 10/30/2024 urina lysis panel , auto Unknown Analyte Negati ve Not Available [facility] [address], [place], [address], 10/30/2024 13:25:08 10/31/19 25 10/30/2024 urina lysis panel , auto Unknown Analyte Negati ve Not Available [facility] [address], [place], [address], 10/30/2024 13:25:08 10/31/19 25 10/30/2024 urina lysis panel , auto Unknown Analyte Negati ve Not Available [facility] [address], [place], [address], 10/30/2024 13:25:08 10/31/19 25 10/30/2024 urina lysis panel , auto Unknown Analyte Negati ve Not Available [facility] [address], [place], [address], 10/30/2024 13:25:08 10/31/19 25 10/30/2024 urina lysis panel , auto Unknown Analyte Negati ve Not Available [facility] [address], [place], [address], 10/30/2024 13:25:08 10/31/19 25 10/30/2024 urina lysis panel , auto Unknown Analyte Normal Not Available [facility] [address], [place], [address], 10/30/2024 13:25:08 10/31/19 25 10/30/2024 urina lysis panel , auto Unknown Analyte Normal Not Available [facility] [address], [place], [address], 10/30/2024 13:25:08 10/31/19 25 10/30/2024 urina lysis panel , auto Unknown Analyte Negati ve Not Available [facility] [address], [place], [address], 10/30/2024 13:25:08 10/31/19 25 10/30/2024 urina lysis panel , auto Unknown Analyte Negati ve Not Available [facility] [address], [place], [address], 10/30/2024 13:25:08 10/31/19 25 10/30/2024 urina lysis panel , auto Unknown Analyte 1 mg/dL Not Available [facility] [address], [place], [address], 10/30/2024 13:25:08 10/31/19 25 10/30/2024 urina lysis panel , auto Unknown Analyte Normal Not Available [facility] [address], [place], [address], 10/30/2024 13:25:08 10/31/19 25 10/30/2024 urina lysis panel , auto Unknown Analyte Negati ve Not Available [facility] [address], [place], [address], 10/30/2024 13:25:08 10/31/19 25 10/30/2024 urina lysis panel , auto Unknown Analyte Negati ve Not Available [facility] [address], [place], [address], 10/30/2024 13:25:08 10/31/19 25 10/30/2024 urina lysis panel , auto Unknown Analyte 50 Jayson/uL Not Available [facility] [address], [place], [address], 10/30/2024 13:25:08 10/31/19 25 10/30/2024 urina lysis panel , auto Unknown Analyte Negati ve Not Available [facility] [address], [place], [address], 10/30/2024 13:25:08 11/28/19 25 12/01/2024 URINE CULTU RE urine culture No growth day 3. Not Available [facility] [address] [facility], [place], [address], 12/01/2024 08:49:09 11/28/19 25 11/27/2024 urina lysis panel , auto Unknown Analyte Clean Catch Not Available [facility] [address], [place], [address], 11/26/2024 16:37:57 11/28/19 25 11/27/2024 urina lysis panel , auto Unknown Analyte Yellow Not Available [facility] [address], [place], [address], 11/26/2024 16:37:57 11/28/19 25 11/27/2024 urina lysis panel , auto Unknown Analyte Clear Not Available [facility] [address], [place], [address], 11/26/2024 16:37:57 11/28/19 25 11/27/2024 urina lysis panel , auto Unknown Analyte 1.020 Not Available [facility] [address], [place], [address], 11/26/2024 16:37:57 11/28/19 25 11/27/2024 urina lysis panel , auto Unknown Analyte 1.003 - 1.030 Not Available [facility] [address], [place], [address], 11/26/2024 16:37:57 11/28/19 25 11/27/2024 urina lysis panel , auto Unknown Analyte 5.0 Not Available [facility] [address], [place], [address], 11/26/2024 16:37:57 11/28/19 25 11/27/2024 urina lysis panel , auto Unknown Analyte 5.0 - 8.0 Not Available [facility] [address], [place], [address], 11/26/2024 16:37:57 11/28/19 25 11/27/2024 urina lysis panel , auto Unknown Analyte 75 Phillip/uL Not Available [facility] [address], [place], [address], 11/26/2024 16:37:57 11/28/19 25 11/27/2024 urina lysis panel , auto Unknown Analyte Negati ve Not Available [facility] [address], [place], [address], 11/26/2024 16:37:57 11/28/19 25 11/27/2024 urina lysis panel , auto Unknown Analyte Negati ve Not Available [facility] [address], [place], [address], 11/26/2024 16:37:57 11/28/19 25 11/27/2024 urina lysis panel , auto Unknown Analyte Negati ve Not Available [facility] [address], [place], [address], 11/26/2024 16:37:57 11/28/19 25 11/27/2024 urina lysis panel , auto Unknown Analyte Negati ve Not Available [facility] [address], [place], [address], 11/26/2024 16:37:57 11/28/19 25 11/27/2024 urina lysis panel , auto Unknown Analyte Negati ve Not Available [facility] [address], [place], [address], 11/26/2024 16:37:57 11/28/19 25 11/27/2024 urina lysis panel , auto Unknown Analyte Normal Not Available [facility] [address], [place], [address], 11/26/2024 16:37:57 11/28/19 25 11/27/2024 urina lysis panel , auto Unknown Analyte Normal Not Available [facility] [address], [place], [address], 11/26/2024 16:37:57 11/28/19 25 11/27/2024 urina lysis panel , auto Unknown Analyte Negati ve Not Available [facility] [address], [place], [address], 11/26/2024 16:37:57 11/28/19 25 11/27/2024 urina lysis panel , auto Unknown Analyte Negati ve Not Available [facility] [address], [place], [address], 11/26/2024 16:37:57 11/28/19 25 11/27/2024 urina lysis panel , auto Unknown Analyte 1 mg/dL Not Available [facility] [address], [place], [address], 11/26/2024 16:37:57 11/28/19 25 11/27/2024 urina lysis panel , auto Unknown Analyte Normal Not Available [facility] [address], [place], [address], 11/26/2024 16:37:57 11/28/19 25 11/27/2024 urina lysis panel , auto Unknown Analyte Negati ve Not Available [facility] [place] [facility] [address], [place], [address], 11/26/2024 16:37:57 11/28/19 25 11/27/2024 urina lysis panel , auto Unknown Analyte Negati ve Not Available [facility] [address], [place], [address], 11/26/2024 16:37:57 11/28/19 25 11/27/2024 urina lysis panel , auto Unknown Analyte Trace Not Available [facility] [address], [place], [address], 11/26/2024 16:37:57 11/28/19 25 11/27/2024 urina lysis panel , auto Unknown Analyte Negati ve Not Available [facility] [place] [facility] [address], [place], [address], 11/26/2024 16:37:57 12/24/19 25 12/23/2024 SURGI RUBEN surgical SEE BELOW abnormal Surgi ruben Patho logy Repor t NAME: TONNY SEUPLVEDA PATH: SS-25 -0617 2 DATE of : [...] casse ttes label ed B1-B3 . C) Alpesh nt's name and date of verif ied. Recei jose in forma cherelle label ed with the deandrae nt's name and desig nated righ t [...] sandra cteri stics deter mined by [facility] Depar tment [...] rm high compl exity testi ng. DESTINY GARCIA-Juliocesar SHAW MD Matilde d Out Date: 12/25 16:52 Page 1 of 1 Not Available [facility] [address] [place] [address], [place], [address], 12/25/2024 16:52:46 01/09/20 25 01/08/2025 URINE CULTU RE staphylococc us epidermidis Organi sm: Staphy lococc us epider midis Not Available [facility] [address] [place] [address], [address], 01/12/2025 09:34:11 01/09/20 25 01/12/2025 URINE CULTU RE urine culture abnormal ISOLA TE #1 COLON Y COUNT : 10,00 0 - 100,0 00 CFU/M L Proba ble Staph yloco ccus sp.; ID and sensi tivit y in progr ess. See Blanchard te Resul t(s) Below Staph yloco ccus epide rmidi s Not Available [facility] [address] [place] [address], [address], 01/12/2025 09:34:11 01/09/2001/12/2025 URINE CULTU RE amox/K clav'ate(C) <=4/2 ug/mL susceptib le Not Available [facility] [address] [place] [address], [address], 01/12/2025 09:34:11 01/09/2001/12/2025 URINE CULTU RE amp/sulbacta m(C) <=8/4 ug/mL susceptib le Not Available [facility] [address] [place] [address], [address], 01/12/2025 09:34:11 01/09/2001/12/2025 URINE CULTU RE cefazolin <=8 ug/mL susceptib le Not Available [facility] [address] [place] [address], [address], 01/12/2025 09:34:11 01/09/20 25 01/12/2025 URINE CULTU RE ciprofloxaci n >2 ug/mL resistant Not Available [facility] [place], [address], 01/12/2025 09:34:11 01/09/20 25 01/12/2025 URINE CULTU RE gentamicin <=4 ug/mL susceptib le Not Available [facility] [address] [place] [address], [address], 01/12/2025 09:34:11 01/09/20 25 01/12/2025 URINE CULTU RE levofloxacin >4 ug/mL resistant Not Available [facility] [address] [place] [address], [address], 01/12/2025 09:34:11 01/09/20 25 01/12/2025 URINE CULTU RE nitrofuranto in <=32 ug/mL susceptib le Not Available [address], [address], 01/12/2025 09:34:11 01/09/20 25 01/12/2025 URINE CULTU RE oxacillin <=0.25 ug/mL susceptib le Not Available [address], [address], 01/12/2025 09:34:11 01/09/2001/12/2025 URINE CULTU RE rifampin <=1 ug/mL susceptib le Not Available [address], [address], 01/12/2025 09:34:11 01/09/2001/12/2025 URINE CULTU RE tetracycline <=4 ug/mL susceptib le Not Available [address], [address], 01/12/2025 09:34:11 01/09/20 25 01/12/2025 URINE CULTU RE trimeth/sulf a 1/19 ug/mL susceptib le Not Available [address], [address], 01/12/2025 09:34:11 01/09/20 25 01/12/2025 URINE CULTU RE vancomycin 1 ug/mL susceptib le Not Available [facility] [address] [facility], [place], [address], 01/12/2025 09:34:11 01/09/20 25 01/08/2025 urina lysis panel , auto Unknown Analyte Clean Catch Not Available [facility] [address], [place], [address], 01/08/2025 14:05:39 01/09/20 25 01/08/2025 urina lysis panel , auto Unknown Analyte Yellow Not Available [facility] [address], [place], [address], 01/08/2025 14:05:39 01/09/20 25 01/08/2025 urina lysis panel , auto Unknown Analyte Clear Not Available [facility] [address], [place], [address], 01/08/2025 14:05:39 01/09/20 25 01/08/2025 urina lysis panel , auto Unknown Analyte 1.020 Not Available [facility] [address], [place], [address], 01/08/2025 14:05:39 01/09/20 25 01/08/2025 urina lysis panel , auto Unknown Analyte 1.003 - 1.030 Not Available [facility] [address], [place], [address], 01/08/2025 14:05:39 01/09/20 25 01/08/2025 urina lysis panel , auto Unknown Analyte 5.0 Not Available [facility] [address], [place], [address], 01/08/2025 14:05:39 01/09/20 25 01/08/2025 urina lysis panel , auto Unknown Analyte 5.0 - 8.0 Not Available [facility] [address], [place], [address], 01/08/2025 14:05:39 01/09/20 25 01/08/2025 urina lysis panel , auto Unknown Analyte 75 Phillip/uL Not Available [facility] [address], [place], [address], 01/08/2025 14:05:39 01/09/20 25 01/08/2025 urina lysis panel , auto Unknown Analyte Negati ve Not Available [facility] [address], [place], [address], 01/08/2025 14:05:39 01/09/20 25 01/08/2025 urina lysis panel , auto Unknown Analyte Negati ve Not Available [facility] [address], [place], [address], 01/08/2025 14:05:39 01/09/20 25 01/08/2025 urina lysis panel , auto Unknown Analyte Negati ve Not Available [facility] [address], [place], [address], 01/08/2025 14:05:39 01/09/20 25 01/08/2025 urina lysis panel , auto Unknown Analyte Negati ve Not Available [facility] [address], [place], [address], 01/08/2025 14:05:39 01/09/20 25 01/08/2025 urina lysis panel , auto Unknown Analyte Negati ve Not Available [facility] [address], [place], [address], 01/08/2025 14:05:39 01/09/20 25 01/08/2025 urina lysis panel , auto Unknown Analyte Normal Not Available [facility] [address], [place], [address], 01/08/2025 14:05:39 01/09/20 25 01/08/2025 urina lysis panel , auto Unknown Analyte Normal Not Available [facility] [address], [place], [address], 01/08/2025 14:05:39 01/09/20 25 01/08/2025 urina lysis panel , auto Unknown Analyte Negati ve Not Available [facility] [address], [place], [address], 01/08/2025 14:05:39 01/09/20 25 01/08/2025 urina lysis panel , auto Unknown Analyte Negati ve Not Available [facility] [address], [place], [address], 01/08/2025 14:05:39 01/09/20 25 01/08/2025 urina lysis panel , auto Unknown Analyte 1 mg/dL Not Available [facility] [address], [place], [address], 01/08/2025 14:05:39 01/09/20 25 01/08/2025 urina lysis panel , auto Unknown Analyte Normal Not Available [facility] [address], [place], [address], 01/08/2025 14:05:39 01/09/20 25 01/08/2025 urina lysis panel , auto Unknown Analyte 1 mg/dL Not Available [facility] [address], [place], [address], 01/08/2025 14:05:39 01/09/20 25 01/08/2025 urina lysis panel , auto Unknown Analyte Negati ve Not Available [facility] [address], [place], [address], 01/08/2025 14:05:39 01/09/20 25 01/08/2025 urina lysis panel , auto Unknown Analyte 250 Jayson/uL Not Available [facility] [address], [place], [address], 01/08/2025 14:05:39 01/09/20 25 01/08/2025 urina lysis panel , auto Unknown Analyte Negati ve Not Available [facility] [place] [facility] [address], [place], [address], 01/08/2025 14:05:39 11/15/19 25 11/14/2024 MRI, pelvi s, w/wo contr ast [facility] [address] [place] [address] [phone] Patien t Name: TONNY THOMAS Patialla t [...] st (1 x 7.5 mL bottle of [facility] 67335- 325-01 ) IV. The patien t did [...] Donald Weaver MD on 025 2:[id number] [facility] [address], [address], 11/15/2024 10:06:59 01/01/20 25 12/23/2024 MRI, prost ate, w/o contr ast [address] [address] Patien t Name: TONNY Aguilar t : [...] g was perfor med utiliz ing the TapPresss 3D imagin g softwa re platfo rm. The VideoJax system was used to genera te detail [...] prosta te mappin g comple osito using VideoJax softwa re. Mappin g Radiol ogist: Dr. Donald Weaver Interp reted By: Donald Weaver MD Electr onical ly Signed By: Donald Weaver MD on 025 12:53 PM [email or web address] [facility] [address] [place], [address], 01/01/2025 09:03:23 01/28/20 25 01/27/2025 PET-C T, skull base to mid-t high scan [address] [address] [facility] Patien t Name: TONNY THOMAS Patialla t [...] GFR = 71 5.6 mCi Ga-68 PSMA ([facility] 94836- 100-64 ) was inject ed IV. After [...] 350 (1 x 50 ml bottle of [facility] [id number] ) admini stered 20 minute [...] Donald Weaver MD on 025 12:54 PM [email or web address] [facility] [address] [place], [address], 01/28/2025 13:31:44 01/31/20 25 01/30/2025 NM, bone scan, whole body [address] [address] Lauren telles Name: TONNY telles : 1939 Patialla t Orderi ng Provid er: KALEE CLAREJami Quiñones EXAM DATE: 2024 EXAM: NM BONE IMAGIN G, WHOLE BODY HISTOR Y: 84-yea r-old male with prosta te cancer . COMPAR ANTONIO: None. TECHNI QUE: Whole body bone scan was perfor med using techne tium 99m MDP 20.3 mCi IV ([facility] [id number] -0040- [id number]). Two hour delaye d images [...] Lorraine العراقي MD on 025 4:16 PM [email or web address] [facility] Nuclear Medicine [address] [place] [address], [id number], 02/05/2025 12:27:21 Result Notes Documentation Provider Name and Address Organization Details Recorded Time Mri, Pelvis, W/wo Contrast : [address] [address] Patient Name: TONNY COLVIN Patient : 1940 [...] Gadavist (1 x 7.5 mL bottle of [facility] 80555-029-40) IV. The patient did not require sedation [...] Interpreted By: Donald Weaver MD BRAY PA-C [address] [place] [address], [phone], [facility] 11/15/2024 10:06:59 Mri, Prostate, W/o Contrast : [address] [address] Patient Name: TONNY COLVIN Patient : 1940 Patient Ordering Provider: DINA BRAY EXAM DATE: 12/23/2024 EXAM: MR 3D PROSTATE Report Summary: The patients' previous multiparametric prostate MRI images were reviewed by a board-certified Radiologist. Following a comprehensive review, prostate mapping was performed utilizing the VideoJax 3D imaging software platform. The VideoJax system was used to generate detailed 3D [...] protocols. Impression: 3D prostate mapping completed using VideoJax software. Mapping Radiologist: Dr. Donald Weaver Interpreted By: Donald Weaver MD BRAY PA-C [address] [place] [address], [phone], [facility] 01/01/2025 09:03:23 Pet-ct, Skull Base To Mid-thigh Scan : [address] [address] [facility] Patient Name: TONNY COLVIN Patient : 1940 Patient Ordering Provider: KALEE CHOI EXAM DATE: 01/27/2025 EXAM: PET-CT PSMA SKULL MID THIGH INT ST CLINICAL INFORMATION: Prostate Cancer - Initial PROCEDURE: A baseline serum creatinine with eGFR was obtained prior to injection of contrast medium due to the patients risk factors for MOINSHA. Calculated eGFR at time of exam was GFR = 71 5.6 mCi Ga-68 PSMA ([facility] 96032-567-44) was injected IV. After an uptake time of 66 minutes, vertex through midthigh PET imaging was performed. This was followed by a low dose attenuation correction/anatomic localization CT from vertex through the midthigh levels. Urinary tract was opacified with an injection of 50 mL Omnipaque 350 (1 x 50 ml bottle of ND 7308-1587-37) administered [address] scan. [...] noted Interpreted By: Donald Weaver MD [facility] 01/28/2025 13:31:44 Nm, Bone Scan, Whole Body : [address] [address] Patient Name: TONNY COLVIN Patient : 1940 Patient Ordering Provider: KALEE CHOI EXAM DATE: 01/30/2025 EXAM: NM BONE IMAGING, WHOLE BODY HISTORY: 84-year-old male with prostate cancer. COMPARISON: None. TECHNIQUE: Whole body bone scan was performed using technetium 99m MDP 20.3 mCi IV ([facility] [id number]). Two hour delayed images were obtained. FINDINGS: The calvarium appears normal. There is possible sinus disease. There are moderate to severe degenerative changes in the shoulders and mild degenerative changes at the sternoclavicular joints. There is increased uptake along the kbtqjljz-cuopzgcf-hqbzngu aspect of the right eighth rib, but this may represent prior trauma. There are mild degenerative changes throughout the spine. There are mild to moderate degenerative changes in the hips, knees, and feet. The bladder is distended. No metastatic lesion is identified. IMPRESSION: 1. No discrete metastatic lesion is seen. Interpreted By: Matt Can MD Lois Paz [facility] 02/05/2025 12:27:21 Problems Name Problem SNOMED Code Status Onset Date Resolution Date Notes Provider Name and Address Organization Details Recorded Time Lower urinary tract symptoms due to benign prostatic hypertrophy 4203327524903 1 Active 2024 DINA BRAY PA-C [address] [place] [address], [address] [place] [address] 14:07:39 Prostate specific antigen above reference range 797470677 Active 2024 DINA BRAY PA-C [address] [place] [address], [address] [place] [address] 14:07:41 Problem Notes None recorded. Procedures Surgical History Date Name Laterality Status Provider Name and Address Organization Details Recorded Time biopsy of prostate completed Rubyednamecca Carson [facility] 01/08/2025 14:05:14 Imaging Results None recorded. [...] Updated DateTime 10/30/2024 172.72 cm 24.3 kg/m2 62283.78 g Chari Wolft [facility] 10/30/2024 13:21:40 Date Recorded Body height Body mass index (BMI) Body weight Provider Name and Address Organization Details Last Updated DateTime 11/27/2024 172.72 cm 25.1 kg/m2 98905.74 g Chari Wolft [facility] 11/27/2024 15:10:48 Date Recorded Body height Body mass index (BMI) Body weight Provider Name and Address Organization Details Last Updated DateTime 01/08/2025 172.72 cm 24.3 kg/m2 14683.78 g Chari Wolft [facility] 01/08/2025 14:04:46 Date Recorded Body height Body mass index (BMI) Body weight Provider Name and Address Organization Details Last Updated DateTime 02/05/2025 172.72 cm 24.3 kg/m2 60065.78 g Em Qiana [facility] 02/05/2025 13:01:43 Social History Question Answer Notes LastModified by Organizat ion Details LastModified Time Tobacco Smoking Status [facility] 10/30/2024 13:22:38 What Was The Date Of Your Most Recent Tobacco Screening? 02/05/2025 [email or web address] Information not available 02/05/2025 Sex: Unknown Functional [...] SNOMED-CT Code Diagnosis ICD10 Code Diagnosis Note [id number] DINA BRAY PA-C [facility] [address],[place] [address] 10/30/2024 12:35:15 10/31/2024 10:16:19 Lower urinary tract symptoms due to benign prostatic hypertrophy 2377045531 9101 N40.1 Prostate s pecific antigen above reference range 871001675 R97.20 Retention of urine 34972 4002 R33.9 [id number] DINA BRAY PA-C [facility] [address],[place] [address] 11/27/2024 14:36:28 11/28/2024 10:24:46 Prostate specific antigen above reference range 093974110 R97.20 Lower urin david tract symptoms due to benign prostatic hypertrophy 6801714556 9101 N40.1 Retention of urine 94098 4002 R33.9 Acute urin david tract infection 618430243 N39.0 [id number] KALEE CHOI MD SURGERY SCHEDULE [address] [place] [address] 12/23/2024 13:33:55 12/23/2024 13:35:07 [id number] KALEE CHOI MD [facility] [address],[place] [address] 01/08/2025 13:43:44 01/08/2025 16:02:57 Malignant neoplasm of prostate 268810654 C61 Prostate s pecific antigen above reference range 969382497 R97.20 Acute urin david tract infection 291255756 N39.0 [id number] KALEE CHOI MD [facility] [address],[place] [address] 02/05/2025 12:31:47 02/05/2025 15:34:07 Malignant neoplasm of prostate 848665575 C61 - Treatment options: surgery, radiation, hormone therapy discussed. - Patient prefers prostatect indra; laparoscop ic procedure planned.- Informed of urinary incontinen ce risk post-surge ry.- We reviewed the diagnosis of prostate carcinoma and options of treatment including radical prostatect indra versus radiation therapy. We discussed the risks and benefits of treatment, specifical ly focusing on robotic prostatect indra. We discussed lymphadene ctomy at time of prostatect indra. We discussed the various forms of radiation therapy. He is interested in robotic prostatect indra. We discussed general risks of surgery including bleeding, infection, postoperat nicol pain, injury to internal organs such as bladder or rectum and discussed procedure specific risks including post-prost atectomy stress urinary incontinen ce and worsening erectile dysfunctio n. Prostate s pecific antigen above reference range 592188862 R97.20 - Pre-biopsy PSA 15.5, indicating elevated levels. Retention of urine 58331 4002 R33.9 - Urinary retention post-disch arge required catheteriz ation. Health Concerns Section Related Observation LastModified by Organization Detai ls LastModified Time None Recorded Concern Status LastModified by Organization Details LastModified Time None Recorded Advance Directives Directive None Recorded Payers Insurance Date Sequence Insurance Name Policy Number Policy Perez Covered Member ID Perez Member ID Guarantor Name 11/18/2024 2 UNSPECIFIED REMIT PAYOR Tonny Colvin 02/03/2025 2 [place] [id number] Tonny Colvin [id number] Tonny Colvin 02/03/2025 1 [place] Tonny Colvin [id number] Tonny Colvin
--- OUTSIDE RECORDS SUMMARY | 2025-03-03 15:39 | XMS_ITS | Continuity of Care Document ---
Author Organization [facility] Address [address] [place] [address] Care Team Providers Care Sample Book Maker Name Role Phone [email or web address] Referring Provider Assessment Encounter Date Assessment Date Assessment LastModified by Organization Details LastModified Time 02/05/2025 02/05/2025 - 84-year-old male with prostate adenocarcinoma for follow-up. - Pre-biopsy PSA 15.5, MRI fusion biopsy Lori 4+3 and 4+4 adenocarcinoma, 80 cm3 volume. [...] Organization Details Last Modified Time Details Appointments GOVIND OUTPT 2024 07:30A M KALEE SALEH MD Not available Not available Not available Lab None recorded. Referral None recorded. Procedures None recorded. Surgeries prostatec antonio with bilateral pelvic lymph node dissectio n, robot assisted laparosco pic (SURG) 2024 08/18/2 025 [id number] Kalin Romeo Gonzalez(Yefri wooten), [address], [place], [address], 02/20/2025 08:51:42 Imaging None recorded. Medication Orders None recorded. Patient TargetsNo targets recorded. Patient Instructions Encounter Date Encounter Id Patient Instructions Last Modified By Organization Details Last Modified Time 02/05/2025 [id number] - Follow up with scheduled prostatectomy. - Be aware of potential urinary incontinence post-surgery. - Return to ER if unable to urinate post-catheter removal. [id number] Not available 02/05/2025 13:45:29 Reason for Referral None Reported. Results Created Date Observation Date Name Description Value Unit Range Abnormal Flag Note LastModifiedBy Organization Detail LastModifiedTime 01/09/2001/08/2025 URINE CULTU RE staphylococc us epidermidis Organi sm: Staphy lococc us epider midis Not Available [facility] [address] [place], [address], 01/12/2025 09:34:11 01/09/2001/12/2025 URINE CULTU RE urine culture abnormal ISOLA TE #1 COLON Y COUNT : 10,00 0 - 100,0 00 CFU/M L Proba ble Staph yloco ccus sp.; ID and sensi tivit y in progr ess. See [place] te Resul t(s) Below Staph yloco ccus epide rmidi s Not Available [facility] [address] [place], [address], 01/12/2025 09:34:11 01/09/2001/12/2025 URINE CULTU RE amox/K clav'ate(C) <=4/2 ug/mL susceptib le Not Available [facility] [address] [place], [address], 01/12/2025 09:34:11 01/09/2001/12/2025 URINE CULTU RE amp/sulbacta m(C) <=8/4 ug/mL susceptib le Not Available [facility] [address] [place], [address], 01/12/2025 09:34:11 01/09/2001/12/2025 URINE CULTU RE cefazolin <=8 ug/mL susceptib le Not Available [facility] [address] [place], [address], 01/12/2025 09:34:11 01/09/20 25 01/12/2025 URINE CULTU RE ciprofloxaci n >2 ug/mL resistant Not Available [facility] [address] [place] [address], [address], 01/12/2025 09:34:11 01/09/20 25 01/12/2025 URINE CULTU RE gentamicin <=4 ug/mL susceptib le Not Available [facility] [address] [place] [address], [address], 01/12/2025 09:34:11 01/09/2001/12/2025 URINE CULTU RE levofloxacin >4 ug/mL resistant Not Available [facility] [address] [place] [address], [address], 01/12/2025 09:34:11 01/09/2001/12/2025 URINE CULTU RE nitrofuranto in <=32 ug/mL susceptib le Not Available [facility] [address] [place] [address], [address], 01/12/2025 09:34:11 01/09/2001/12/2025 URINE CULTU RE oxacillin <=0.25 ug/mL susceptib le Not Available [facility] [address] [place] [address], [address], 01/12/2025 09:34:11 01/09/2001/12/2025 URINE CULTU RE rifampin <=1 ug/mL susceptib le Not Available [facility] [address] [place] [address], [address], 01/12/2025 09:34:11 01/09/2001/12/2025 URINE CULTU RE tetracycline <=4 ug/mL susceptib le Not Available [facility] [address] [place] [address], [address], 01/12/2025 09:34:11 01/09/2001/12/2025 URINE CULTU RE trimeth/sulf a 1/19 ug/mL susceptib le Not Available [facility] [address] [place], [address], 01/12/2025 09:34:11 01/09/20 25 01/12/2025 URINE CULTU RE vancomycin 1 ug/mL susceptib le Not Available [facility] [address] [place], [address], 01/12/2025 09:34:11 01/09/20 25 01/08/2025 urina lysis panel , auto Unknown Analyte Clean Catch Not Available [facility] [address], [place], [address], 01/08/2025 14:05:39 01/09/20 25 01/08/2025 urina lysis panel , auto Unknown Analyte Yellow Not Available [facility] [address], [place], [address], 01/08/2025 14:05:39 01/09/20 25 01/08/2025 urina lysis panel , auto Unknown Analyte Clear Not Available [facility] [address], [place], [address], 01/08/2025 14:05:39 01/09/20 25 01/08/2025 urina lysis panel , auto Unknown Analyte 1.020 Not Available [facility] [address], [place], [address], 01/08/2025 14:05:39 01/09/20 25 01/08/2025 urina lysis panel , auto Unknown Analyte 1.003 - 1.030 Not Available [facility] [address], [place], [address], 01/08/2025 14:05:39 01/09/20 25 01/08/2025 urina lysis panel , auto Unknown Analyte 5.0 Not Available [facility] [address], [place], [address], 01/08/2025 14:05:39 01/09/20 25 01/08/2025 urina lysis panel , auto Unknown Analyte 5.0 - 8.0 Not Available [facility] [address], [place], [address], 01/08/2025 14:05:39 01/09/20 25 01/08/2025 urina lysis panel , auto Unknown Analyte 75 Phillip/uL Not Available [facility] [address], [place], [address], 01/08/2025 14:05:39 01/09/20 25 01/08/2025 urina lysis panel , auto Unknown Analyte Negati ve Not Available [facility] [address], [place], [address], 01/08/2025 14:05:39 01/09/20 25 01/08/2025 urina lysis panel , auto Unknown Analyte Negati ve Not Available [facility] [address], [place], [address], 01/08/2025 14:05:39 01/09/20 25 01/08/2025 urina lysis panel , auto Unknown Analyte Negati ve Not Available [facility] [address], [place], [address], 01/08/2025 14:05:39 01/09/20 25 01/08/2025 urina lysis panel , auto Unknown Analyte Negati ve Not Available [facility] [address], [place], [address], 01/08/2025 14:05:39 01/09/20 25 01/08/2025 urina lysis panel , auto Unknown Analyte Negati ve Not Available [facility] [address], [place], [address], 01/08/2025 14:05:39 01/09/20 25 01/08/2025 urina lysis panel , auto Unknown Analyte Normal Not Available [facility] [address], [place], [address], 01/08/2025 14:05:39 01/09/20 25 01/08/2025 urina lysis panel , auto Unknown Analyte Normal Not Available [facility] [address], [place], [address], 01/08/2025 14:05:39 01/09/20 25 01/08/2025 urina lysis panel , auto Unknown Analyte Negati ve Not Available [facility] [address], [place], [address], 01/08/2025 14:05:39 01/09/20 25 01/08/2025 urina lysis panel , auto Unknown Analyte Negati ve Not Available [facility] [address], [place], [address], 01/08/2025 14:05:39 01/09/20 25 01/08/2025 urina lysis panel , auto Unknown Analyte 1 mg/dL Not Available [facility] [address], [place], [address], 01/08/2025 14:05:39 01/09/20 25 01/08/2025 urina lysis panel , auto Unknown Analyte Normal Not Available [facility] [address], [place], [address], 01/08/2025 14:05:39 01/09/20 25 01/08/2025 urina lysis panel , auto Unknown Analyte 1 mg/dL Not Available [facility] [address], [place], [address], 01/08/2025 14:05:39 01/09/20 25 01/08/2025 urina lysis panel , auto Unknown Analyte Negati ve Not Available [facility] [address], [place], [address], 01/08/2025 14:05:39 01/09/20 25 01/08/2025 urina lysis panel , auto Unknown Analyte 250 Jayson/uL Not Available [facility] [address], [place], [address], 01/08/2025 14:05:39 01/09/20 25 01/08/2025 urina lysis panel , auto Unknown Analyte Negati ve Not Available [facility] [address], [place], [address], 01/08/2025 14:05:39 01/28/20 25 01/27/2025 PET-C T, skull base to mid-t high scan [facility] [address] [place] [address] [facility] Patien t Name: TONNY NUÑEZAR MARTHA Aguilar t : 1939 Patien t Orderi ng Provid er: KALEE SHEETS Nuria EXAM DATE: 2024 EXAM: PET-CT PSMA SKULL [...] = 71 5.6 mCi Ga-68 PSMA ([facility] [address]58- 100-64 ) was inject ed IV. After [...] (1 x 50 ml bottle of [facility] [id number] ) admini [...] Weaver MD on 025 12:54 PM [email or web address] [facility] Radiology [facility] [address] [place] [address], [address], 01/28/2025 13:31:44 01/31/20 25 01/30/2025 NM, bone scan, whole body [address] [address] Patialla t Name: TONNY THOMAS Patialla t : 1939 Patien t Orderi ng Provid er: KALEE Quiñones EXAM DATE: 2024 EXAM: NM BONE IMAGIN G, WHOLE BODY HISTOR Y: 84-yea r-old male with prosta te cancer . COMPAR ANTONIO: None. TECHNI QUE: Whole body bone scan was perfor med using techne tium 99m MDP 20.3 mCi IV ([facility] [id number] -[id number]). Two hour delaye d images [...] Lorraine العراقي MD on 025 4:16 PM [email or web address] Radiology Nuclear Medicine [address] [place] [address], [address], 02/05/2025 12:27:21 Result Notes None recorded. Problems Name Problem SNOMED Code Status Onset Date Resolution Date Notes Provider Name and Address Organization Details Recorded Time Lower urinary tract symptoms due to benign prostatic hypertrophy 5859003108534 1 Active 2024 DINA BRAY PA-C [address] [place] [address], [address] [place] [address] 14:07:39 Prostate specific antigen above reference range 943917251 Active 2024 DINA BRAY PA-C [address] [place] [address], [address] , [facility] 14:07:41 Problem Notes None recorded. Procedures Surgical History Date Name Laterality Status Provider Name and Address Organization Details Recorded Time biopsy of prostate completed Chari Byrd [facility] 01/08/2025 14:05:14 Imaging Results None recorded. Procedure [...] Updated DateTime 02/05/2025 172.72 cm 24.3 kg/m2 43406.78 g Em Kiran [facility] 02/05/2025 13:01:43 Social History Question Answer Notes LastModified by Organizat ion Details LastModified Time Tobacco Smoking Status Never Smoker Chari Byrd [facility] 10/30/2024 13:22:38 What Was The Date Of Your Most Recent Tobacco Screening? 02/05/2025 [email or web address] Information not available 02/05/2025 Sex: Unknown Functional [...] SNOMED-CT Code Diagnosis ICD10 Code Diagnosis Note [id number] MD SANJUANA GIMENEZDE [facility] [address] [address] 01/08/2025 13:43:44 01/08/2025 16:02:57 Malignant neoplasm of prostate 059511830 C61 Prostate s pecific antigen above reference range 198219845 R97.20 Acute urin david tract infection 609483575 N39.0 [id number] KALEE SALEH MD [facility] [address] [address] 02/05/2025 12:31:47 02/05/2025 15:34:07 Malignant neoplasm of prostate 091316629 C61 - Treatment options: surgery, radiation, hormone [...] Prostate s pecific antigen above reference range 533273699 R97.20 - Pre-biopsy PSA 15.5, indicating elevated levels. Retention of urine 87372 4002 R33.9 - Urinary retention post-disch arge required catheteriz ation. Health Concerns Section Related Observation LastModified by Organization Detai ls LastModified Time None Recorded Concern Status LastModified by Organization Details LastModified Time None Recorded Payers Encounter Date Sequence Insurance Name Policy Number Policy Perez Covered Member ID Perez Member ID Guarantor Name 02/05/2025 1 [place] Tonny Andino [id number] Tonny Andino 02/05/2025 2 [place] [id number] Tonny Andino [id number] Tonny Andino
--- OUTSIDE RECORDS SUMMARY | 2025-03-03 15:39 | XMS_ITS | Clinical Summary ---
Author Organization [employer] ([place], [place], [place], [place]) Address [address] [place] [address] Care Team Providers Care Computer Tape Librarian Name Role Phone Unavailable Primary Care Provider [...] Description 03/23/2025 7:30 AM EDT Hospital Encounter [facility] Operating Room [address] [place] [address] Pablo Choi MD [address] [place] [address] 03/23/2025 7:30 AM EDT - 03/23/2025 11:19 AM EDT Surgery [facility] Operating Room [address] [place] [address] Pablo Choi MD [address] [place] [address] (ROBOTIC PROSTATECTOMY WITH LYMPH NODE DISSECTION) Scheduled Procedures Name Priority Associated Diagnoses Date/Ti me ROBOTIC LAPAROSCOPY,PROSTATECTOMY W/ PELVIC LYMPH NODE DISSECTION Malignant neoplasm of prostate (HCC) 03/23/2025 7:30 AM EDT Health Maintenance Due Date Last Done Comments Depression Screening (12+) 1952 Tobacco Cessation Counseling and Screening (12+) 06/21 DTAP/TDAP/TD VACCINES (1 - Tdap) 1960 Pneumococcal 50+ years (1 of 1 - PCV) 1991 Shingles Vaccine (Zoster) (1 of 2) 1991 Medicare Initial AWV [id number] 06/07/2007 Respiratory Syncytial Virus (RSV) Adult or (1 - 1-dose 75+ series) 2016 COVID-19 VACCINE ( season) 2024 Falls Risk Screening 08/06/2024 Influenza Vaccine (#1) 2025 Insurance MEDICARE PART A B
--- NOTE | 2025-03-03 15:57 | XR_ITS ---
PROCEDURE INFORMATION: Exam: XR Right Ankle Exam date and time: 03/03/2025 4:07 PM Age: 84 years old Clinical indication: Pain; Ankle; Right; Additional info: Acute RT ankle pain TECHNIQUE: Imaging protocol: Radiologic exam of the right ankle. Views: 3 or more views. COMPARISON: CR XR ANKLE RT MIN 3V 03/03/2025 4:07 PM FINDINGS: Bones/joints: There is no evidence of acute fracture.There is no evidence of malalignment or dislocation. Degenerative changes in the medial and lateral malleolus Soft tissues: Soft tissue swelling of the ankle IMPRESSION: There is no evidence of acute fracture.There is no evidence of malalignment or dislocation.
--- NOTE | 2025-03-03 15:58 | XR_ITS ---
PROCEDURE INFORMATION: Exam: XR Right Foot Exam date and time: 03/03/2025 4:07 PM Age: 84 years old Clinical indication: Pain; Foot; Right; Additional info: RT foot pain/swelling, no known trauma TECHNIQUE: Imaging protocol: Radiologic exam of the right foot. Views: 3 or more views. 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 Degenerative changes in the 1st metatarsal phalangeal joint and IP joint. Degenerative changes in the tarsal bones and tarsometatarsal joints. There is no evidence of acute fracture.There is no evidence of malalignment or dislocation. Soft tissues: Normal. IMPRESSION: Degenerative changes in the 1st metatarsal phalangeal joint and IP joint.
[2025-03-03 16:01] LABS: Hematocrit 37.0 % (42.0-52.0); Hemoglobin 12.2 g/dL (14.1-18.0); Immature Granulocytes % 0.5 %; Mean Corpuscular HGB Conc 33.0 g/dL (31.8-35.4); Mean Corpuscular Hemoglobin 30.3 pg (27.0-31.2); Mean Corpuscular Volume 92.0 fl (80-94); Nucleated Red Blood Cells % 0 %; Platelet Count 275 K/mm3 (142-424); Red Blood Count 4.02 M/mm3 (4.60-6.20); Red Cell Distribution Width-SD 41.3 fL; White Blood Count 10.3 K/mm3 (4.8-10.8)
[2025-03-03 16:02] LABS: Albumin Level 3.7 g/dl (3.5-5.0); Chloride 103 mmol/L (98-107); Potassium 4.2 mmoL/L (3.5-5.1); Sodium 137 mmol/L (136-145)
[2025-03-03 16:05] LABS: Alanine Aminotransferase 34 U/L (12-78); Albumin/Globulin Ratio 0.9 (1.1-1.8); Alkaline Phosphatase 113 U/L (38-126); Anion Gap 9.2 mEq/L (5-15); Aspartate Amino Transferase 32 U/L (17-59); Bilirubin,Total 0.4 mg/dl (0.2-1.3); Blood Urea Nitrogen 18 mg/dl (9-20); Carbon Dioxide 29 mmol/L (22.0-30.0); Creatinine,Serum 0.80 mg/dl (0.66-1.25); Estimated Glomerular Filt Rate 92 ml/min (>60); GFR (African American) 112 ML/MIN (>60); Globulin 4.3 g/dL (1.3-3.2); Total Protein,Serum 8.0 g/dl (6.3-8.2)
[2025-03-03 16:06] LABS: Calcium 9.1 mg/dl (8.4-10.2); Glucose 119 mg/dl (74-100)
[2025-03-03 16:19] LABS: Uric Acid 4.2 mg/dl (3.5-8.5)
== END 2025-03-03 23:59 | disposition home or self-care (01) ==
LOC: RAD 15:35
PROVIDERS: PCP Internal Medicine Adolescent Medicine; Visit Provider Nurse Practitioner Family
DX: M19.071 Primary osteoarthritis, right ankle and foot (principal)
CPT/HCPCS: 36415; 73610; 73630; 80053; 84550; 85025